=== PATIENT | female | born 1990 | race Two or more races ===

== ENCOUNTER → 2020-12-01 13:16 | Outpatient (REF) | payer MEDICAID, SELFPAY ==
--- NOTE | 2020-12-01 13:00 | ECG_ITS ---
Hook-up date: 2020-12-01 13:29:00 Duration: 24:46:00 Test Indications: CHEST PAIN Medications: [id number] QRS complexes * Ventricular ectopics which represent % of total QRS comp. * Supraventricular ectopics which represent % of total QRS comp. * Paced QRS complexs which represent % of total QRS comp. VENTRICULAR ECTOPY * Isolated * Bigeminal Cycles * Couplets * Runs * Beats in Runs * Beats LONGEST at * BPM at :: -- * Beats FASTEST at * BPM at :: -- SUPRAVENTRICULAR ECTOPY * Isolated * Couplets * Runs * Beats in Runs * Beats LONGEST at * BPM at :: -- * Beats FASTEST at * BPM at :: -- HEART RATES 46 MIN at 05:34:02 2020-12-02 77 AVG 154 MAX at 15:46:18 2020-12-01 LONGEST RR 1.5680 secs at 21:56:02 2020-12-01 S-T LEVELS Channel 1 - 128 mm at 13:29:00 2020-12-01 - 128 mm at 13:29:00 2020-12-01 Channel 2 - 128 mm at 13:29:00 2020-12-01 - 128 mm at 13:29:00 2020-12-01 Channel 3 - 128 mm at 03:24:81 -- - 128 mm at 03:24:81 Basic rhythm Normal sinus rhythm No long pause or profound bradycardia No dangerous dysrhythm periods Patient did not report any symptoms in the diary Referred By: Evy Mast Overread By: LUKAS WILEY MD
== END ==
LOC: HO.CARD 13:16
PROVIDERS: Visit Provider Family Medicine
DX: R07.89 Other chest pain (principal)
CPT/HCPCS: 93225; 93226

== ENCOUNTER 2020-12-21 08:52 | Outpatient (REF) | payer MEDICAID, SELFPAY ==
--- NOTE | ~2020-12-21 | XR_ITS ---
EXAMINATION: XR CHEST CLINICAL INFORMATION: Intermittent chest pain. Occasional dyspnea. COMPARISON: Most recent chest radiograph dated 05/12/2017 TECHNIQUE: 2 views of the chest were obtained. FINDINGS: The lungs are clear. The cardiomediastinal silhouette is normal in size. There is no pleural effusion or pneumothorax. No acute osseous abnormality. XR/XR chest 2V IMPRESSION: No acute cardiopulmonary findings.
== END 2020-12-21 08:53 | disposition home or self-care (01) ==
LOC: HO.XRAY 08:52
PROVIDERS: PCP Family Medicine; Visit Provider Family Medicine
DX: R07.89 Other chest pain (principal)
CPT/HCPCS: 71046

== ENCOUNTER 2021-05-10 14:37 | Outpatient (REF) | payer MEDICAID, SELFPAY ==
--- NOTE | ~2021-05-10 | XR_ITS ---
EXAMINATION: XR CHEST CLINICAL INFORMATION: Chest pain. COMPARISON: Chest radiograph dated 12/21/2020. TECHNIQUE: 2 views of the chest were obtained. FINDINGS: The lungs are clear. The cardiomediastinal silhouette is normal in size. There is no pleural effusion or pneumothorax. No acute osseous abnormality. XR/XR chest 2V IMPRESSION: No acute cardiopulmonary findings.
== END 2021-05-10 14:38 | disposition home or self-care (01) ==
LOC: HO.XRAY 14:37
PROVIDERS: Absent Provider Family Medicine; PCP Family Medicine; Visit Provider Emergency Medicine
DX: R07.9 Chest pain, unspecified (principal)
CPT/HCPCS: 71046

== ENCOUNTER 2021-05-11 12:46 | Emergency (ER) | payer MEDICAID, SELFPAY ==
[2021-05-11 14:01] VITALS: BP 133/85; PULSE 66; RESP 16; TEMP 36.9; O2SAT 100; BMI 51.5
[2021-05-11 14:14] LABS: MANUAL DIFF FLAG NO
[2021-05-11 14:18] LABS: Basophils Percent Auto 0.5 % (0-2); Eosinophils Absolute Auto 0.2 X10*3/uL (0.0-0.4); Eosinophils Percent Auto 2.7 % (0-4); Hematocrit 38.7 % (37.0-47.0); Hemoglobin 12.3 g/dl (12.0-16.0); Imm Gran Abs Auto 0.01 X10*3/uL (0.00-0.03); Imm Gran Pct Auto 0.2 % (0.0-0.4); Lymphocytes Absolute Auto 2.3 X10*3/uL (1.2-4.9); Lymphocytes Percent Auto 38.8 % (20-40); Mean Corpuscular HGB Conc 31.8 g/dl (31.0-35.0); Mean Corpuscular Hemoglobin 28.7 pg (27.0-33.0); Mean Corpuscular Volume 90.4 fL (80.0-98.0); Mean Platelet Volume 13.3 fL (9.4-12.3); Monocytes Absolute Auto 0.4 X10*3/uL (0.1-1.2); Monocytes Percent Auto 6.2 % (2-11); Neutrophils Absolute Auto 3.1 x10*3/uL (2.0-8.3); Neutrophils Percent Auto 51.6 % (45-73); Platelet Count 177 X10*3/uL (160-400); Red Blood Count 4.28 X10*6/uL (4.20-5.50); White Blood Count 5.9 X10*3/uL (4.8-10.8)
[2021-05-11 14:32] LABS: Anion Gap 9 (12-20); Blood Urea Nitrogen 11 mg/dL (9-16); Calcium 9.2 mg/dL (8.4-10.2); Carbon Dioxide 28 mmol/L (22-29); Chloride 104 mmol/L (96-108); Creatinine Clr Calc Pharmacy 125.6; Estimated Glomerular Filt Rate > 60; Glucose Random 89 mg/dL (60-115); Potassium 4.3 mmol/L (3.3-5.1); Sodium 137 mmol/L (135-145)
[2021-05-11 14:59] LABS: INTERNATIONAL NORM RATIO 1.1 (0.9-1.1); Prothrombin Time 12.1 SEC (9.9-13.0)
[2021-05-11 15:01] LABS: D Dimer High Sensitivity 179 NG/ML
[2021-05-11 15:02] LABS: Partial Thromboplastin Time 40.8 SEC (24.1-38.0)
[2021-05-11 21:36] LABS: COVID-19 Test Negative (Negative)
--- NOTE | 2021-05-11 21:39 | PC.NURSE ---
in room for eval. covid neg
--- NOTE | 2021-05-11 21:45 | ED.GENADULT ---
HPI - General Adult General Chief complaint: Abdominal Pain Stated complaint: abdnormal labs Time Seen by Provider: 05/11/21 21:02 Source: patient Mode of arrival: ambulatory History of Present Illness HPI narrative: 31-year-old female without significant past medical history presents with right anterior chest wall discomfort that started on Monday while she was working a and was not needed with any trauma or thighs regimen. In addition, this is not been associated with any dizziness, headache, palpitations, long distance travel, smoking history, or personal/family history of blood clots. Patient also denies any calf swelling, new cough. Related Data Allergies Allergy/AdvReac Type Severity Reaction Status Date / Time No Known Allergies Allergy Verified 05/11/21 14:01 [No Known Allergies*] Review of Systems Review of Systems: Pertinent positives and negatives as stated in HPI and 10 point systems is otherwise negative. [facility] Past Medical History Source: nursing notes reviewed Medical History No known health problems Social History Social History Advance Directives: No Advance Directives Information Provided: No Physical Exam Vital Signs: Vital Signs: Last Vital Signs Temp 98.4 F 05/11/21 14:01 Pulse 66 05/11/21 14:01 Resp 16 05/11/21 14:01 BP 133/85 05/11/21 14:01 Pulse Ox 100 05/11/21 14:01 BMI result Body Mass Index 51.5 VITAL SIGNS: Reviewed. GENERAL: Well developed, well nourished, in no acute distress. HEAD: Normocephalic/atraumatic EYES: PERRLA, EOMI OROPHARYNX: no oral lesions noted, posterior pharynx clear LUNGS: Normal breath sounds, no tachypnea,. SpO2<100>; CHEST WALL: Reach for inducible chest pain on palpation to right anterior chest without erythema/induration. CARDIOVASCULAR: Regular rate and rhythm without noted murmurs, no JVD or lower extremity edema. ABDOMEN: Soft, non-tender, non-distended with bowel sounds. MUSCULOSKELETAL: No tenderness, deformities, or effusions noted on gross inspection. EXTREMITIES: No cyanosis, clubbing or edema. SKIN: Inspection of the skin reveals no rashes NEUROLOGIC: Alert and oriented x 4. Course Course Course Narrative: 31-year-old female with history and clinical presentation consistent with atypical chest pain, PERC negative, and no clinical or historical evidence to suggest pneumonia/pneumothorax. On review of all investigations there are no acute findings. This was fully discussed with the patient as well as the likelihood of possible costochondritis. Patient was discharged home in stable condition with instructions to follow up with the primary care provider. Medical Decision Making Lab Data Result diagrams: 05/11/21 14:09 05/11/21 14:09 Labs: Lab Results 05/11/21 05/11/21 05/11/21 Range/Units 14:09 14:09 14:19 WBC 5.9 (4.8-10.8) X10*3/uL RBC 4.28 (4.20-5.50) X10*6/uL Hgb 12.3 (12.0-16.0) g/dl Hct 38.7 (37.0-47.0) % MCV 90.4 (80.0-98.0) fL MCH 28.7 (27.0-33.0) pg MCHC 31.8 (31.0-35.0) g/dl RDW 13.0 (11.0-16.0) % Plt Count 177 (160-400) X10*3/uL MPV 13.3 H (9.4-12.3) fL Immature Gran % (Auto) 0.2 (0.0-0.4) % Neut % (Auto) 51.6 (45-73) % Lymph % (Auto) 38.8 (20-40) % [place] % (Auto) 6.2 (2-11) % Eos % (Auto) 2.7 (0-4) % Baso % (Auto) 0.5 (0-2) % Lymph # (Auto) 2.3 (1.2-4.9) X10*3/uL [place] # (Auto) 0.4 (0.1-1.2) X10*3/uL Eos # (Auto) 0.2 (0.0-0.4) X10*3/uL Baso # (Auto) 0.0 (0.0-0.2) X10*3/uL Abs Immat Gran (auto) 0.01 (0.00-0.03) X10*3/uL Absolute Neuts (auto) 3.1 (2.0-8.3) x10*3/uL Absolute Nucleated RBC 0.000 (0.0-0.012) X10*3/uL Nucleated RBC % (auto) 0.0 (0.0-0.2) /100WBC PT 12.1 (9.9-13.0) SEC INR 1.1 (0.9-1.1) APTT 40.8 H (24.1-38.0) SEC D-Dimer High Sensitivty 179 NG/ML Sodium 137 (135-145) mmol/L Potassium 4.3 (3.3-5.1) mmol/L Chloride 104 (96-108) mmol/L Carbon Dioxide 28 (22-29) mmol/L Anion Gap 9 L (12-20) BUN 11 (9-16) mg/dL Creatinine 0.77 (0.5-1.4) mg/dL Estim Creat Clear Calc 125.6 Estimated GFR > 60 Random Glucose 89 (60-115) mg/dL Calcium 9.2 (8.4-10.2) mg/dL COVID-19 (BARRY) (Negative) COVID-19 Clin Com 05/11/21 Range/Units 21:12 WBC (4.8-10.8) X10*3/uL RBC (4.20-5.50) X10*6/uL Hgb (12.0-16.0) g/dl Hct (37.0-47.0) % MCV (80.0-98.0) fL MCH (27.0-33.0) pg MCHC (31.0-35.0) g/dl RDW (11.0-16.0) % Plt Count (160-400) X10*3/uL MPV (9.4-12.3) fL Immature Gran % (Auto) (0.0-0.4) % Neut % (Auto) (45-73) % Lymph % (Auto) (20-40) % [place] % (Auto) (2-11) % Eos % (Auto) (0-4) % Baso % (Auto) (0-2) % Lymph # (Auto) (1.2-4.9) X10*3/uL [place] # (Auto) (0.1-1.2) X10*3/uL Eos # (Auto) (0.0-0.4) X10*3/uL Baso # (Auto) (0.0-0.2) X10*3/uL Abs Immat Gran (auto) (0.00-0.03) X10*3/uL Absolute Neuts (auto) (2.0-8.3) x10*3/uL Absolute Nucleated RBC (0.0-0.012) X10*3/uL Nucleated RBC % (auto) (0.0-0.2) /100WBC PT (9.9-13.0) SEC INR (0.9-1.1) APTT (24.1-38.0) SEC D-Dimer High Sensitivty NG/ML Sodium (135-145) mmol/L Potassium (3.3-5.1) mmol/L Chloride (96-108) mmol/L Carbon Dioxide (22-29) mmol/L Anion Gap (12-20) BUN (9-16) mg/dL Creatinine (0.5-1.4) mg/dL Estim Creat Clear Calc Estimated GFR Random Glucose (60-115) mg/dL Calcium (8.4-10.2) mg/dL COVID-19 (BARRY) Negative (Negative) COVID-19 Clin Com See Note Discharge Plan Discharge Clinical Impression: Atypical chest pain, Costochondritis Patient Disposition: Home, Self-Care Instructions: Chest Wall Pain (ED), Costochondritis (ED) Additional Instructions: 1. Tylenol 1000 mg, orally, every 6 hours as needed for pain control. Do not exceed 4000 mg within 24 hours. Ibuprofen 400 mg, orally with milk or food, every 6 hours as needed for pain control. 2. Lidocaine patch, this is available [id number] and may be apply to area of maximal tenderness. 3. Follow-up with your primary care provider in the next 1-2 days for re-evaluation and further outpatient management. Return to the ER for worsening symptoms. Referrals: Evy Mast MD [Primary Care Provider] - 2 days Print Language: Urdu
[2021-05-11 22:00] VITALS: BP 162/83; PULSE 78; RESP 18; TEMP 37.2; O2SAT 98
[2021-05-11] MEDS: Lidocaine 4 % Patch ADH..PATCH 1 PATCH TRANSDERMA (22:23)
[2021-05-11] MEDS: Acetaminophen 325 MG TABLET 975 MG PO (22:24)
[2021-05-11] MEDS: Ibuprofen 400 MG TABLET PO (22:26)
== END 2021-05-11 22:28 | disposition home or self-care (01) ==
PROVIDERS: Emergency Provider Student in an Organized Health Care Education/Training Program; PCP Family Medicine
DX: M94.0 Chondrocostal junction syndrome [Tietze] (principal); R10.9 Unspecified abdominal pain; R07.89 Other chest pain; Z20.822 Contact with and (suspected) exposure to COVID-19; Z79.899 Other long term (current) drug therapy
CPT/HCPCS: 36415; 80048; 85025; 85379; 85610; 85730; 87635; 99283

== ENCOUNTER 2022-07-14 11:27 | Outpatient (REF) | payer MEDICAID, SELFPAY ==
--- NOTE | 2022-07-14 09:00 | EMG_ITS ---
Right tibial and peroneal motor studies were performed. Right superficial peroneal and sural sensory studies were performed. Tibial H-reflex was obtained and paraspinal muscles were tested with a needle. 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 MD LUCIANO Cordero/DORCAS / [phone]
== END 2022-07-14 11:28 | disposition home or self-care (01) ==
LOC: HO.NEURO 11:27
PROVIDERS: PCP Family Medicine; Visit Provider Family Medicine
DX: R20.2 Paresthesia of skin (principal)
CPT/HCPCS: 95886; 95909

== ENCOUNTER 2022-10-17 14:50 | Outpatient (REF) | payer MEDICAID, SELFPAY ==
[2022-10-17 16:06] LABS: MANUAL DIFF FLAG NO
[2022-10-17 16:38] LABS: Basophils Percent Auto 0.6 % (0-2); Eosinophils Absolute Auto 0.2 X10*3/uL (0.0-0.4); Eosinophils Percent Auto 3.7 % (0-4); Hematocrit 43.4 % (37.0-47.0); Hemoglobin 13.8 g/dl (12.0-16.0); Imm Gran Abs Auto 0.02 X10*3/uL (0.00-0.03); Imm Gran Pct Auto 0.3 % (0.0-0.4); Lymphocytes Absolute Auto 1.8 X10*3/uL (1.2-4.9); Lymphocytes Percent Auto 29.2 % (20-40); Mean Corpuscular HGB Conc 31.8 g/dl (31.0-35.0); Mean Corpuscular Hemoglobin 28.5 pg (27.0-33.0); Mean Corpuscular Volume 89.5 fL (80.0-98.0); Mean Platelet Volume 13.7 fL (9.4-12.3); Monocytes Absolute Auto 0.4 X10*3/uL (0.1-1.2); Monocytes Percent Auto 6.3 % (2-11); Neutrophils Absolute Auto 3.7 x10*3/uL (2.0-8.3); Neutrophils Percent Auto 59.9 % (45-73); Platelet Count 177 X10*3/uL (160-400); Red Blood Count 4.85 X10*6/uL (4.20-5.50); Red Cell Distribution Width 12.9 % (11.0-16.0); White Blood Count 6.2 X10*3/uL (4.8-10.8)
[2022-10-17 17:11] LABS: Erythrocyte Sedimentation Rate 10 MM/HR (0-20)
[2022-10-17 17:19] LABS: Alanine Aminotransferase 14 U/L (0-31); Albumin Level 4.2 g/dL (3.5-5.0); Alkaline Phosphatase 62 U/L (39-117); Anion Gap 12 (12-20); Aspartate Amino Transferase 10 U/L (5-31); Bilirubin Direct 0.3 mg/dL (0.0-0.5); Bilirubin Total 1.2 mg/dL (0.0-1.0); Blood Urea Nitrogen 13 mg/dL (9-16); C Reactive Protein 0.57 mg/dL (< or = 0.50); Calcium 9.3 mg/dL (8.4-10.2); Carbon Dioxide 25 mmol/L (22-29); Chloride 105 mmol/L (96-108); Cholesterol 213 mg/dL; Estimated Glomerular Filt Rate > 60; Glucose Random 79 mg/dL (60-115); HDL Cholesterol 46 mg/dL; LDL Cholesterol Calculated 118 mg/dl; Potassium 3.8 mmol/L (3.3-5.1); Sodium 138 mmol/L (135-145); Total Protein 7.6 g/dL (6.5-8.0); Triglycerides 248 mg/dL
[2022-10-17 17:28] LABS: Folate 9.6 ng/mL (> or = 4.0); Vitamin B12 518 pg/mL (200-900)
[2022-10-17 18:47] LABS: Rheumatoid Factor < 13.0 IU/mL (<15.0)
[2022-10-18 05:27] LABS: Estimated Average Glucose 103 mg/dL; Hemoglobin A1c % 5.2 %
[2022-10-18 05:30] LABS: ~HepC Num1 0.13 S/CO (0.00-0.79); ~Hepatitis C Antibody Nonreactive (Nonreactive)
[2022-10-18 05:38] LABS: HIV AB/AG Nonreactive (Nonreactive); HIV Num 1 0.05 S/CO (0.00-0.99)
[2022-10-19 14:48] LABS: Cyclic Citrullinated Peptide <16 UNITS
[2022-10-19 18:04] LABS: Homocysteine 7.2 umol/L (<10.4)
[2022-10-21 13:47] LABS: Anti Nuclear Antibody Screen NEGATIVE (NEGATIVE)
[2022-10-22 09:48] LABS: Methylmalonic Acid 85 nmol/L (87-318)
== END 2022-10-17 14:51 | disposition home or self-care (01) ==
LOC: HO.HHCL 14:50
PROVIDERS: Visit Provider Internal Medicine
DX: Z11.4 Encounter for screening for human immunodeficiency virus [HIV] (principal); R20.0 Anesthesia of skin; R20.2 Paresthesia of skin; R53.82 Chronic fatigue, unspecified; M25.50 Pain in unspecified joint
CPT/HCPCS: 36415; 80048; 80061; 80076; 82607; 82746; 83036; 83090; 83921; 84443; 85025; 85652; 86038; 86140; 86200; 86431; 86803; 87389

== ENCOUNTER 2022-10-17 15:07 | Outpatient (REF) | payer MEDICAID, SELFPAY ==
--- NOTE | ~2022-10-17 | XR_ITS ---
EXAMINATION: XR LUMBOSACRAL SPINE CLINICAL INFORMATION: Pain COMPARISON: None available. TECHNIQUE: 5 views lumbosacral spine nonweightbearing FINDINGS: Diffuse endplate spurring. Moderate degenerative disc space narrowing L4-L5. Posterior elements appear intact. No fracture or focal bony lesion. Sacral joints appear intact. XR/XR lumbar spine 2-3V IMPRESSION: Degenerative disc disease most notable at L4-L5.
== END 2022-10-17 15:08 | disposition home or self-care (01) ==
LOC: HO.HHCX 15:07
PROVIDERS: Visit Provider Internal Medicine
DX: M54.50 Low back pain, unspecified (principal)
CPT/HCPCS: 72100

== ENCOUNTER 2022-11-18 10:25 | Outpatient (REF) | payer MEDICAID, SELFPAY | END 2022-11-18 10:26 | disposition home or self-care (01) | LOC: HO.HHCL 10:25 | PROVIDERS: Visit Provider Internal Medicine | DX: R10.13 Epigastric pain (principal) | CPT/HCPCS: 87338 ==

== ENCOUNTER 2022-12-15 08:16 | Outpatient (REF) | payer MEDICAID, SELFPAY ==
--- NOTE | ~2022-12-15 | XR_ITS ---
EXAMINATION: XR WRIST/HAND, LEFT CLINICAL INFORMATION: Radial styloid tenosynovitis. COMPARISON: None available. TECHNIQUE: PA, lateral, and oblique views of the left wrist and hand FINDINGS: LEFT WRIST/HAND: The bones and soft tissues are normal. No fracture. Alignment is anatomic. Joint spaces are maintained. No erosions or soft tissue calcifications. XR/XR hand wrist LT IMPRESSION: Normal left hand and wrist.
== END 2022-12-15 08:17 | disposition home or self-care (01) ==
LOC: HO.HOSX 08:16
PROVIDERS: PCP Family Medicine; Visit Provider Physical Medicine & Rehabilitation
DX: M65.4 Radial styloid tenosynovitis [de Quervain] (principal); R20.0 Anesthesia of skin; M53.3 Sacrococcygeal disorders, not elsewhere classified
CPT/HCPCS: 73110; 73130; 99202

== ENCOUNTER 2022-12-15 08:16 | Outpatient (AMB) | payer MEDICAID, SELFPAY ==
--- NOTE | 2022-12-15 08:28 | A.OFFVIS_ITS ---
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 She reports weakness, numbness and tingling in her legs and her hands. She reports this started 10 months ago when she had her baby. She has tried taking tylenol and motrin but it hasn't helped, she has also tried Gabapentin but she reports it was too strong for her. Allergies No Known Allergies [No Known Allergies*] Allergy (Verified 12/15/22 08:34) Medication List - Last Reconciled 12/15/22 by Louisa Chavez RN No Known Home Meds HPI HPI Comments History of Present Illness Details Left thumb pain - 10 months ago, during . She does admit to constant numbness on both hands, which started during also. Dropping things. No splint or brace yet. Low back pain, during also, getting worse. Across lower back but left worse than right. Travels to left foot. Reports numbness on both legs/feet, on/off. Occasional neck pain only. Had evaluation for back pain PT, to start in January. [facility] Medical History No known health problems Review of Systems Const All systems reviewed & are unremarkable except as noted in HPI and below Physical Exam Constitutional: Patient appears to be in no acute distress, well nourished and well developed. MSK: Inspection reveals appropriate head and neck positioning. No pain with palpation over the neck musculature. Cervical ROM was full. Spurling's sign negative. No intrinsic hand weakness noted. No atrophy noted. Carley test positive on left. Carpal compression test negative. Tinel sign negative. Mildly tender on bilateral SI joints. No tenderness on spinous processes, facets are paraspinals. Strength is 5/5 in all muscle groups tested. No increased tone noted. Neurological: Neurologic examination of the upper and lower extremities was nonfocal with intact sensation, muscle stretch reflexes and without focal motor deficits . Segundo?s negative bilaterally. Babinski was down going bilaterally. Clonus was negative. No footdrop seen. Gait is non-antalgic without loss of balance. Results Reviewed Results Reviewed: I independently reviewed the results of the following: EMG right lower extremity done by Dr. Geovanny-showed small appy should of right superficial peroneal nerve. Peroneal motor nerve looked within normal. Lumbar x-ray done October showed decreased disc space at L4-5. Assessment & Plan Assessment & Plan (1) De Quervain's disease (tenosynovitis): Code(s): M65.4 - Radial styloid tenosynovitis [de Quervain] Plan: Suspect she has left de Quervain tenosynovitis. We will provide thumb spica splint to be worn during the day. Instructions given. We will get left hand/wrist x-ray today to rule out any arthritic changes. (2) Bilateral hand numbness: Code(s): R20.0 - Anesthesia of skin Plan: It is common to get carpal tunnel syndrome during . We will schedule her for EMG. (3) Sacroiliac joint dysfunction of both sides: Code(s): M53.3 - Sacrococcygeal disorders, not elsewhere classified Plan: Also, to get SI joint dysfunction during . She is already scheduled for physical therapy and encouraged her to continue with that. I do not think we need to repeat EMG for lower extremities at this time. However if she continues to complain of feet numbness, we will schedule it under me at some point. Plan Assessment and plan discussed with patient, and patient was agreeable. All questions were answered thoroughly. I will see her during EMG for upper extremities. Emely Jensen MD, [employer] Board Certified, [place] [employer] and [employer] (ABPMR) Board Certified, [place] [employer] Electro[employer] (ABEM) Orders: Orders NE electromyogram (EMG) Today R20.0 - Anesthesia of skin XR hand wrist LT Today M65.4 - Radial styloid tenosynovitis [de Quervain] NE nerve conduction velocity Today R20.0 - Anesthesia of skin Coding Level of Care Code New Pt Level 4 (85216) Diagnoses De Quervain's disease (tenosynovitis) M65.4 Bilateral hand numbness R20.0 Sacroiliac joint dysfunction of both sides M53.3
== END 2022-12-15 09:21 | disposition home or self-care (01) ==
PROVIDERS: PCP Family Medicine; Visit Provider Physical Medicine & Rehabilitation
DX: M65.4 Radial styloid tenosynovitis [de Quervain] (principal); R20.0 Anesthesia of skin; M53.3 Sacrococcygeal disorders, not elsewhere classified
CPT/HCPCS: 99204

== ENCOUNTER 2022-12-18 12:36 | Emergency (ER) | payer MEDICAID, SELFPAY ==
--- NOTE | ~2022-12-18 | XR_ITS ---
EXAMINATION: XR LUMBOSACRAL SPINE CLINICAL INFORMATION: Lower back pain COMPARISON: 10/17/2022 TECHNIQUE: Three views of the lumbosacral spine. FINDINGS: The alignment is maintained. Vertebral body height is maintained. Mild to moderate disc narrowing and osteophyte formation is present at L4-L5. No visible spondylolysis or spondylolisthesis. Small osteophytes are also present at T12-L1. XR/XR lumbar spine 2-3V IMPRESSION: Mild to moderate disc narrowing at L4-L5 with osteophyte formation. Findings similar to prior.
[2022-12-18 13:40] VITALS: BP 141/98; PULSE 72; RESP 16; TEMP 36.8; O2SAT 98; BMI 46.2
--- NOTE | 2022-12-18 13:50 | ED_ITS ---
HPI - General Adult General Chief complaint: Back Pain/Injury Stated complaint: lower back pain Time Seen by Provider: 12/18/22 14:15 Source: patient Mode of arrival: ambulatory Limitations: no limitations History of Present Illness HPI narrative: patient is a 32-year-old female presents emergency department for evaluation of acute on chronic lumbar spine pain. She states that she often has severe pain and spasming of the lower back. Today she was experiencing spasming and she is feeling the pain radiating into the lower legs. She states that this caused her to drop to her knees and hands to the floor. Did not fall landing on her spine. There is no head strike or loss of consciousness. She is endorsing increasing pain to the lumbar spine throughout today. Denies fevers, chills, burning with micturition, urinary frequency/urgency/hesitancy, bladder or bowel dysfunction, numbness or tingling of the perineum or bilateral legs. Denies any recent surgical procedures, any known immune compromising conditions, personal history of cancer, or IV drug usage. Related Data Previous Rx's Medication Instructions Recorded cyclobenzaprine 10 mg tablet 10 mg PO BEDTIME PRN muscle spasm 12/18/22 #10 tabs lidocaine 5 % topical patch 1 patch topical DAILY #15 ea 12/18/22 (Lidoderm) Allergies Allergy/AdvReac Type Severity Reaction Status Date / Time No Known Allergies Allergy Verified 12/15/22 08:34 [No Known Allergies*] Review of Systems Review of Systems: Constitutional: No weight loss, fever, chills, weakness or fatigue. HEENT: No visual loss, blurred vision, double vision. No hearing loss, sneezing, congestion, runny nose or sore throat. Skin: No rash or itching. Cardiovascular: No chest pain, chest pressure or chest discomfort. No palpitations or pedal edema. Respiratory: No shortness of breath, cough or sputum production. Gastrointestinal: No anorexia, nausea, vomiting or diarrhea. No abdominal pain or blood in stool. Genitourinary: No burning micturition. No urinary frequency or incontinence. Neurologic: No headache, dizziness, syncope, unilateral weakness, ataxia, numbness or tingling in the extremities. No change in bowel or bladder control. Musculoskeletal: + Back pain as noted in HPI. No joint pain or stiffness. Hematologic: No bleeding or bruising. Lymphatics: No enlarged lymph nodes. Psychiatric:No depression or anxiety. Endocrine: No reports of sweating. No cold or heat intolerance. No polyuria or polydipsia. Yes all other systems are reviewed and are negative [facility] Past Medical History Attestation statement: The following information was validated with the patient. Source: old records reviewed Medical History No known health problems Social History Social History Advance Directives: No Advance Directives Information Provided: Yes Physical Exam ED Vital Signs: Vital Signs - 24 hr 12/18/22 13:40 12/18/22 14:55 Temperature 98.2 F 98.2 F Pulse Rate 72 72 Respiratory Rate 16 Blood Pressure 141/98 H 132/88 Pulse Oximetry 98 97 Oxygen Delivery Method Room Air Room Air BMI result Body Mass Index 46.2 Appearance: Alert.?Oriented to person, place and time. No acute distress.?Normal affect. Eyes: Pupils equal, round and reactive to light.? ENT: Pharynx normal.?? Neck: Normal inspection.? Neck supple.?? CVS: Heart sounds normal. Normal heart rate and rhythm.? Pulses normal; bilateral radial pulses 2+, bilateral posterior tibial/dorsalis pedis pulses 2+.? Respiratory: No respiratory distress.? Lung sounds clear to auscultation bilaterally?? Abdomen: Soft and non-tender. Normoactive bowel sounds. Skin: Skin warm and dry.? Normal skin color.? ?? Extremities: No lower extremity edema.? No calf ttp? Back: + mild paraspinal muscular tenderness from lumbar region to coccyx , bilateral SI joint tenderness upon palpation. No CVA tenderness. No midline spinal tenderness, step-off's, or deformity. Full ROM intact in bilateral lower extremities. Straight leg test positiveon right; Straight leg test Positive on left. No rashes, lesions, areas of induration or fluctuance, or signs of infection noted., Neuro: Moves all extremities spontaneously. 5/5 strength in hip extension/flexion, abduction, adduction. Sensation to light touch intact bilaterally. Patellar and Achilles reflex 2+ bilaterally. No ataxia, gait normal and steady.. No focal neuro deficits. Course Course Course Narrative: RME: 32 yold female presents to the ED For low back pain after falling unto back. patient state chronic back pain exacerbation. patient denies any symptoms. Xrays ordered Medications Administered Discontinued Medications Generic Name Dose Route Start Last Admin Trade Name Keri PRN Reason Stop Dose Admin Cyclobenzaprine HCl 10 mg 12/18/22 14:54 12/18/22 15:13 Cyclobenzaprine Hcl 10 Mg Tablet PO 12/18/22 14:55 10 mg ONCE ONE Administration Lidocaine 1 patch 12/18/22 14:54 12/18/22 15:15 Lidocaine 4 % Patch Adh..Patch TRANSDERMA 12/18/22 14:55 1 patch ONCE ONE Administration Protocol Medical Decision Making Medical Decision Making [facility] Narrative: Patient is a 32-year-old female in with history of chronic back pain, SI joint dysfunction presenting for acute on chronic pain. physical examination revealing paraspinal muscle tenderness and tenderness over the bilateral SI joint. Discussed with patient cannot completely exclude herniated disc. On n eurological exam there are no deficits. XR imaging reveals mild to moderate disc narrowing at L4-L5 consistent with previous examinations. Not consistent with spinal fracture, spinal infection, epidural abscess, AAA, or dissection. No high risk past medical history including incontinence, fever, immunosuppression, recent surgery or lumbar puncture, coagulopathy, significant trauma, recent unintentional weight loss, pulsatile mass, history of cancer, history of TB, history of IV drug use that would warrant MRI or CT. Not consistent with ectopic , pyelonephritis, urinary tract infection, renal calculi, pelvic infection, appendicitis, diverticulitis. On exam no concern for cauda equina syndrome. No Additional imaging is currently indicated at this time. Plan for discharge home with cyclobenzaprine and Lidoderm patch, and follow-up with primary care provider, and patient agreed with plan. Differential Diagnosis Differential Diagnoses: The differential diagnosis associated with the presentation includes ( Most likely lumbar radiculopathy, verses lumbar fracture/traumatic subluxation. Unlikely pyelonephritis, hydronephrosis, ureteral calculi, urinary tract infection, diverticulitis, appendicitis) Lab Data [facility] Lab Attestation statement: I reviewed the patient's lab results. urinalysis is without signs of infection, hematuria present she is currently menstruating. Labs: Lab Results 12/18/22 Range/Units 14:31 Urine Color Yellow Urine Appearance Clear Urine pH 6.5 (5.0-9.0) Ur Specific [place] 1.010 (1.005-1.025) Urine Protein Negative (Neg-Trace) mg/dL Urine Glucose (UA) Negative (Negative) mg/dL Urine Ketones Negative (Negative) mg/dL Urine Blood Large (3+) H (Negative) Urine Nitrite Negative (Negative) Ur Leukocyte Esterase Negative (Negative) Urine RBC >20 H (0-2) /HPF Urine WBC 0-5 (0-5) /HPF Ur Squamous Epith Cells 0-2 (0-2) /HPF Urine Bacteria None Seen (None Seen) Hyaline Casts 0-2 (0-2) /LPF Urine Test NEGATIVE (NEGATIVE) Independent Interpretation I performed an independent interpretation of an: Plain X-Ray ( I have personally interpreted XR imaging of the lumbar spine And agree with radiologist impression.) Radiology Impression Discussion of test interpretation with radiology: I have reviewed the radiologist's reading. Radiologist Impression: XR/XR lumbar spine 2-3V IMPRESSION: Mild to moderate disc narrowing at L4-L5 with osteophyte formation. Findings similar to prior. External Record Review External record reviewed: Outpatient record and Prior outpatient labs Tests considered The following testing was considered but not selected: see narrative above for further detail Prescription Management I considered prescription management with: Pain Medication Discharge Plan Discharge Clinical Impression: Sacroiliac joint dysfunction of both sides, Lumbar radiculopathy Patient Disposition: Home, Self-Care Instructions: Lumbar Radiculopathy (ED), Sacroiliitis (ED), Lower Back Exercises (ED) Prescriptions: New cyclobenzaprine 10 mg tablet 10 mg PO BEDTIME PRN (Reason: muscle spasm) Qty: 10 0RF lidocaine [Lidoderm] 5 % adhesive patch,medicated 1 patch topical DAILY Qty: 15 0RF Rx Instructions: leave on most painful area for up to 12 hrs Referrals: Sammie Bazan MD [Primary Care Provider] - Discharge Date/Time: 12/18/22 17:50
--- OUTSIDE RECORDS SUMMARY | 2022-12-18 14:24 | XMS_ITS | Continuity of Care Document ---
Author Name Unknown Organization [facility] Address [address] [place] [address], [address] [place] [address]- Care Team Providers Care Electronic Warfare Technical Name Role Phone Not on Staff, PCP Primary Care Physician Unavail able Encounter [facility] [place] Date(s): 08/10/21 - 08/17/21 [facility] [address], 4th [place] [address]- Attending Physician: Yareli Beatty MD Referring Physician: Gabi Garcia CNM Allergies, Adverse Reactions, Alerts No Known Medication Allergies Medications Multivitamins By Mouth, Daily, 0 Refills, Maintenance, 07/13/21 10:26:00 EDT, Partial fill upon patient request if the prescription is for a schedule II opioid drug. Start Date: 07/13/21 Status: Ordered Unisom 25 mg oral tablet 1 tablet = 25 mg, By Mouth, Daily at bedtime, # 30 tablet, 1 Refills, Maintenance, 08/10/21 10:21:00 EDT, [id number], Partial fill upon patient request if the prescription is for a schedule II opioid drug., 174, cm, 08/10/21 9:37:00 EDT, Rosalina... Start Date: 08/10/21 Status: Ordered Vit D gummies OTC Vit D gummies OTC, Refills 0, Maintenance, 07/13/21 10:27:00 EDT, Supply Start Date: 07/13/21 Status: Ordered Vitamin B6 25 mg oral tablet 1 tablet = 25 mg, By Mouth, 3 times a day, # 100 tablet, 0 Refills, Maintenance, 07/13/21 11:12:00 EDT, [id number], Partial fill upon patient request if the prescription is for a schedule II opioid drug. Start Date: 07/13/21 Status: Ordered Problem List Condition Effective Dates Status Health Status Inform ant BMI 38.7, pre- - Obese(Confirmed) Active History of delivery , currently (Confirmed) Active History of varicella as a child(Confirmed) Active History of depression(Confirmed) 1 Active History of macrosomia in inf ant in prior , currently (Confirmed) Active +COVID-19 during (C onfirmed) 2 Active Obese class II(Confirmed) Active 1Reports some situational depression in past and some mild ppd after her first son. It was mild and resolved on it's own. 2Symptoms began 08/19/21. Social History Social History Type Response Smoking Status Never (less than 100 in lifetime) entered on: 07/13/21 Sex
--- OUTSIDE RECORDS SUMMARY | 2022-12-18 14:24 | XMS_ITS | Continuity of Care Document ---
Author Name Unknown Organization [facility] Address [address], [address] [place] [address]- Care Team Providers Care Rn Integrity Name Role Phone Not on Staff, PCP Primary Care Physician Unavail able Encounter [facility] [place] Date(s): 01/20/22 - 01/27/22 [facility] [address] [facility] [facility] [address], 4th [place] [address]- Attending Physician: Yareli Beatty MD Referring Physician: Ciro Puckett CNM Allergies, Adverse Reactions, Alerts No Known Medication Allergies Immunizations Given and Recorded Vaccine Date Status Refusal Reason tetanus/diphtheria/pertussis, acel(Tdap) 12/01/21 Given Medications Unisom 25 mg oral tablet 1 tablet = 25 mg, By Mouth, Daily at bedtime, # 30 tablet, 0 Refills, Maintenance, 10/27/21 17:21:00 EDT, [facility]/pharmacy #[id number], Partial fill upon patient request if the prescription is for a schedule II opioid drug., 174, cm, 10/05/21 14:32:00 EDT, Rafael... Start Date: 10/27/21 Status: Ordered Problem List Condition Confirmation Course Effective Dates Status H ealth Status Informant Anemia Confirmed Active Gestational thrombocytopenia Confirmed Active BMI 38.7, pre- - Obese Confirmed Active History of delivery, currently Confirmed Active History of varicella as a child Confirmed Active History of depression 1 Confirmed Active History of macrosomia in infant in prior , currently Confirmed Active +COVID-19 during 2 Confirmed Active Obese class II Confirmed Active 1Reports some situational depression in past and some mild ppd after her first son. It was mild and resolved on it's own. 2Symptoms began 08/19/21. Social History Social History Type Response Smoking Status Never (less than 100 in lifetime) entered on: 07/13/21 Sex Patient Care team information Personnel Name: Not on Staff, PCP
--- OUTSIDE RECORDS SUMMARY | 2022-12-18 14:24 | XMS_ITS | Continuity of Care Document ---
Author Name Unknown Organization [facility] Address Unknown Care Team Providers Care Basic Sciences Professor Name Role Phone Not on Staff, PCP Primary Care Physician Unavail able Encounter [facility] [place] Date(s): 06/23/21 - 09/09/21 [facility] Attending Physician: Not on Staff, Attending MD Referring Physician: Chiquita Lei CNM Allergies, Adverse Reactions, Alerts No Known [...]
--- OUTSIDE RECORDS SUMMARY | 2022-12-18 14:24 | XMS_ITS | Continuity of Care Document ---
Author Name Unknown Organization [facility] Address [address] [place] [address]- Care Team Providers Care Steward/Stewardess Deck Name Role Phone Not on Staff, PCP Primary Care Physician Unavail able Encounter [facility] [place] Date(s): 02/07/22 - 03/20/[address] [address] Attending Physician: Venkatesh Candelaria CNM Admitting Physician: Venkatesh Candelaria CNM Referring Physician: Venkatesh Candelaria CNM Allergies, Adverse Reactions, Alerts No Known Medication Allergies Immunizations Given and Recorded Vaccine Date Status Refusal Reason tetanus/diphtheria/pertussis, acel(Tdap) 12/01/21 Given Problem List Condition Confirmation Course Effective Dates Status H ealth Status Informant Anemia Confirmed Active Gestational thrombocytopenia Confirmed Active History of varicella as a child Confirmed Active History of depression 1 Confirmed Active Obese class II Confirmed Active 1Reports some situational depression in past and some mild ppd after her first son. It was mild and resolved on it's own. Social History Social History Type Response Smoking Status Never (less than 100 in lifetime) entered on: 07/13/21 Sex Patient Care team information Care Team Personnel Name: Corina Florez RN Position: S RN Member Role: Primary Care Nurse Name: Not on Staff, PCP Position: S Physician (General Medicine) Member Role: PCP Care Team Related Persons Name: DARREL DUNNE Address: [id number] Address: home [address] [place] [address] [place] Name: ESVIN MANSFIELD Address: [address] [place] [address]
--- OUTSIDE RECORDS SUMMARY | 2022-12-18 14:24 | XMS_ITS | Continuity of Care Document ---
Author Name Unknown Organization [facility] Address [address] [place] [address]- Care Team Providers Care Machine Captain Name Role Phone Not on Staff, PCP Primary Care Physician Unavail able [place] [facility] [place] Date(s): 08/17/21 - 09/16/21 [facility] [address] [place] [address]- Allergies, Adverse Reactions, Alerts No Known Medication [...]
--- OUTSIDE RECORDS SUMMARY | 2022-12-18 14:24 | XMS_ITS | Continuity of Care Document ---
Author Name Unknown Organization [facility] Address [address], 4t [place] [address]- Care Team Providers Care Glass Installer Technician Name Role Phone Not on Staff, PCP Primary Care Physician Unavail able Encounter [facility] Date(s): 02/02/22 - [facility] [address], 4th [place] [address]- Allergies, Adverse Reactions, Alerts No Known Medication [...] Team Related Persons Name: DARREL DUNNE Address: [id number] Address: home [address] [place], [place] Name: ESVIN MANSFIELD Address: home [address] [facility] [place], [place]
--- OUTSIDE RECORDS SUMMARY | 2022-12-18 14:24 | XMS_ITS | Continuity of Care Document ---
Author Name Unknown Organization [facility] ter Address [address] [place] [address]- Care Team Providers Care Fitting Room Attendant Name Role Phone Not on Staff, PCP Primary Care Physician Unavail able Encounter [facility] [place] Date(s): 12/17/21 - 12/17/[address] [address]- Discharge Disposition: A-D/C Home Attending Physician: Carter Cook MD Admitting Physician: Carter Cook MD Referring Physician: Carter Cook MD Allergies, Adverse Reactions, Alerts No Known Medication Allergies Immunizations Given and Recorded Vaccine Date Status Refusal Reason tetanus/diphtheria/pertussis, acel(Tdap) 12/01/21 Given Medications ferrous sulfate 325 mg oral tablet See Instructions, 1 tablet By Mouth every other day. may take with food to minimize abdominal discomfort, # 30 tablet, 6 Refills, Maintenance, 12/09/21 9:59:00 EDT, [facility]/pharmacy #[id number], Partial fill upon patient request if the prescription is for a s... Start Date: 12/09/21 Status: Ordered Multivitamins By Mouth, Daily, 0 Refills, Maintenance, 07/13/21 10:26:00 EDT, Partial fill upon patient request if the prescription is for a schedule II opioid drug. Start Date: 07/13/21 Status: Ordered Unisom 25 mg oral tablet 1 tablet = 25 mg, By Mouth, Daily at bedtime, # 30 tablet, 0 Refills, Maintenance, 10/27/21 17:21:00 EDT, [id number], Partial fill upon patient request if the prescription is for a schedule II opioid drug., 174, cm, 10/05/21 14:32:00 EDT, Rafael... Start Date: 10/27/21 Status: Ordered Problem List Condition Effective Dates Status Health Status Inform ant Anemia(Confirmed) Active Gestational thrombocytopenia(Confirmed) Active BMI 38.7, pre- - Obese(Confirmed) Active History [...] resolved on it's own. 2Symptoms began 08/19/21. Vital Signs Most recent to oldest [Reference Range]: 1 2 Oxygen Saturation [94-100 %] 100 % (12/17/21 5:37 PM) 100 % (12/17/21 2:18 PM) Pulse Rate [55-90 bpm] 77 bpm (12/17/21 2:18 PM) Blood Pressure [90-138/55-84 mm Hg] 112/ 71mm Hg (12/17/21 5:37 PM) 102/60mm Hg (12/17/21 2:18 PM) Respiratory Rate [16-30 br/min] 18 br/mi n (12/17/21 5:36 PM) 16 br/min (12/17/21 2:18 PM) Temperature [96.8-100.4 DegF] 98.6 DegF (12/17/21 2:18 PM) Mode of Delivery (Oxygen) Room air (12/17/21 2:18 PM) Blood pressure sites Arm, left (12/17/21 5:36 PM) Arm, right (12/17/21 2:18 PM) Temperature Route Oral (12/17/21 2:18 PM) Social History Social History Type Response Smoking Status Never (less than 100 in lifetime) entered on: 07/13/21 Sex Care Team Personnel Name: Not on Staff, PCP
--- OUTSIDE RECORDS SUMMARY | 2022-12-18 14:24 | XMS_ITS | Continuity of Care Document ---
Author Name Unknown Organization [facility] [employer] Address [address], [address] [place] [address]- Care Team Providers Care Drivability Technician Name Role Phone Not on Staff, PCP Primary Care Physician Unavail able [place] [facility] [place] Date(s): 01/20/22 - 02/19/22 [facility] [address], [address] [place], [place] [address] Attending Physician: Blair Devlin Admitting Physician: Blair Devlin Referring Physician: AdmtrBlair Allergies, Adverse Reactions, Alerts No Known Medication Allergies Immunizations Given and Recorded Vaccine Date Status Refusal Reason tetanus/diphtheria/pertussis, acel(Tdap) 12/01/21 Given Medications acetaminophen 325 mg oral tablet 650 mg, By Mouth, Every 4 hours, (1-3), may give 325mg per patient preference and re-dose with 325mg within 4 hours if needed. Patient should only receive a total of 650mg of Acetaminophen every 4 hours., # 90 tablet, Refills 0, Tot. Refills 0, Main... Start Date: 02/19/22 Status: Ordered docusate sodium 100 mg oral capsule 100 mg, 1, capsule, By Mouth, 2 times a day, # 60 capsule, Refills 0, Tot. Refills 0, Maintenance, 02/19/22 8:13:00 EST, Route to Pharmacy Electronically, [facility]/pharmacy #[id number], Partial fill upon patient request if the prescription is for a schedule II o... Start Date: 02/19/22 Status: Ordered ibuprofen 800 mg oral tablet 800 mg, 1, tablet, By Mouth, Every 8 hours, (4-6), may give 400mg per patient preference and re-dose with 400mg within 8 hours if needed. Patient should only receive a total of 800mg of Ibuprofen every 8 hours., # 90 tablet, Refills 0, Tot. Refills... Start Date: 02/19/22 Status: Ordered oxyCODONE 5 mg oral tablet 5 mg, 1, tablet, By Mouth, Every 3 hours, PRN, (7-10), # 10 tablet, Refills 0, Tot. Refills 0, Maintenance, Pain , Severe, 02/19/22 8:13:00 EST, Route to Pharmacy Electronically, [facility]/pharmacy #[id number], Partial fill upon patient request if the prescriptio... Start Date: 02/19/22 Status: Ordered Problem List Condition Confirmation Course [...] Confirmed Active Obese class II Confirmed Active contractions Confirmed Active 1Reports some situational depression in past and some mild ppd after her first son. It was mild and resolved on it's own. 2Symptoms began 08/19/21. Social History Social History Type Response Smoking Status Never (less than 100 in lifetime) entered on: 07/13/21 Sex Patient Care team information Care Team Personnel Name: Corina Florez RN Position: [facility] RN Member Role: Primary Care Nurse Name: Not on Staff, PCP Position: [facility] Physician (General Medicine) Member Role: PCP Care Team Related Persons Name: DONAL ESVIN Address: [address] [place] [address] Name: NELSY BREWSTER GIRL Address: [address] Address: [address] [place] [address]
--- OUTSIDE RECORDS SUMMARY | 2022-12-18 14:25 | XMS_ITS | Continuity of Care Document ---
Author Name Unknown Organization [facility] Address [address] [address]- Care Team Providers Care Tooler Name Role Phone Not on Staff, PCP Primary Care Physician Unavail able Encounter [facility] [place] Date(s): 02/22/22 - 04/24/22 [facility] [address] [place] [address]- Attending Physician: Not on Staff, Attending MD Referring Physician: Gely Valladares CNM Allergies, Adverse Reactions, Alerts No Known [...] Nurse Name: Not on Staff, PCP Position: [facility] Physician (General Medicine) Member Role: PCP Care Team Related Persons Name: DARREL DUNNE Address: [address] Address: [address], [place] Name: ESVIN MANSFIELD Address: home [address] [place], [place]
--- OUTSIDE RECORDS SUMMARY | 2022-12-18 14:25 | XMS_ITS | Continuity of Care Document ---
Author Name Unknown Organization [facility] Address [address] [address]- Care Team Providers Care Industrial/Organizational Psychologist Name Role Phone Not on Staff, PCP Primary Care Physician Unavail able Encounter [facility] Date(s): 11/18/21 - 12/18/21 [facility] [address] [place] [address]- Allergies, Adverse Reactions, Alerts No Known Medication Allergies Immunizations Given and Recorded Vaccine Date Status Refusal Reason tetanus/diphtheria/pertussis, acel(Tdap) 12/01/21 Given Medications ferrous sulfate 325 mg oral tablet See Instructions, 1 tablet By Mouth every other day. may take with food to minimize abdominal discomfort, # 30 tablet, 6 Refills, Maintenance, 12/09/21 9:59:00 EDT, [facility]/pharmacy #[id number], Partial fill upon [...] tablet, 0 Refills, Maintenance, 10/27/21 17:21:00 EDT, [facility]/pharmacy #[id number], Partial fill upon [...]
--- OUTSIDE RECORDS SUMMARY | 2022-12-18 14:25 | XMS_ITS | Continuity of Care Document ---
Author Name Unknown Organization [facility] Address [address] [address]- Care Team Providers Care Wildlife Forensic Geneticist Name Role Phone Not on Staff, PCP Primary Care Physician Unavail able Encounter [facility] Date(s): 12/17/21 - 01/16/22 [facility] [address] [place] [address]- Allergies, Adverse Reactions, Alerts No Known Medication Allergies Immunizations Given and Recorded Vaccine Date Status Refusal Reason tetanus/diphtheria/pertussis, acel(Tdap) 12/01/21 Given Medications Diflucan 150 mg oral tablet 1 tablet = 150 mg, By Mouth, Once, # 1 tablet, 0 Refills, Soft Stop, 12/21/21 19:49:00 EDT, [id number], Partial fill upon patient request if the prescription is for a schedule II opioid drug., 174, cm, 12/21/21 10:42:00 EDT, Height, 11... Start Date: 12/21/21 Status: Ordered ferrous sulfate 325 mg oral tablet See Instructions, 1 tablet By Mouth every other day. may take with food to minimize abdominal discomfort, # 30 tablet, 6 Refills, Maintenance, 12/09/21 9:59:00 EDT, [id number], Partial fill upon patient request if the prescription is for a s... Start Date: 12/09/21 Status: Ordered ondansetron 4 mg oral tablet 1 tablet = 4 mg, By Mouth, Every 8 hours, # 12 tablet, 0 Refills, Maintenance, 12/29/21 15:05:00 EDT, Tablet, [id number], Partial fill upon patient request if the prescription is for a schedule II opioid drug., 174, cm, 12/23/21 9:31:00 EDT, H... Start Date: 12/29/21 Status: Ordered Multivitamins By Mouth, Daily, 0 Refills, Maintenance, 07/13/21 10:26:00 EDT, Partial fill upon patient request if the prescription is for a schedule II opioid drug. Start Date: 07/13/21 Status: Ordered Unisom 25 mg oral tablet 1 tablet = 25 mg, By Mouth, Daily at bedtime, # 30 tablet, 0 Refills, Maintenance, 10/27/21 17:21:00 EDT, [facility]/pharmacy #[id number], Partial fill upon patient [...] 1 Confirmed Active History of macrosomia in in prior , currently Confirmed Active +COVID-19 [...]
--- OUTSIDE RECORDS SUMMARY | 2022-12-18 14:25 | XMS_ITS | Continuity of Care Document ---
Author Name Unknown Organization [facility] ter Address [address] [place] [address]- Care Team Providers Care Power Systems Engineer Name Role Phone Not on Staff, PCP Primary Care Physician Unavail able Encounter [facility] Date(s): 07/09/21 - 07/09/[address] [id number] Discharge Disposition: A-D/C Home Attending Physician: Sandra Barrett MD Admitting Physician: Sandra Barrett MD Referring Physician: Sandra Barrett MD Allergies, Adverse Reactions, Alerts No Known Medication Allergies Procedures Procedure Date Related Diagnosis Body Site Status delivery Complet ed Vital Signs Most recent to oldest [Reference Range]: 1 Weight 118.9 kg (07/09/21 9:24 AM) Oxygen Saturation [94-100 %] 100 % (07/09/21 9:24 AM) Pulse Rate [55-90 bpm] 83 bpm (07/09/21 9:24 AM) Blood Pressure [90-138/55-84 mm Hg] 119/ 72mm Hg (07/09/21 9:24 AM) Respiratory Rate [16-30 br/min] 18 br/mi n (07/09/21 9:24 AM) Temperature [96.8-100.4 DegF] 98.2 DegF (07/09/21 9:24 AM) Blood pressure sites Arm, right (07/09/21 9:24 AM) Temperature Route Oral (07/09/21 9:24 AM) Weight Obtained Via Standing scale (07/09/21 9:24 AM)
--- OUTSIDE RECORDS SUMMARY | 2022-12-18 14:25 | XMS_ITS | Continuity of Care Document ---
Author Name Unknown Organization [facility] Address [address] [place] [address]- Care Team Providers Care Armature Winder Repair Helper Name Role Phone Not on Staff, PCP Primary Care Physician Unavail able Encounter [facility] [place] Date(s): 10/05/21 - 11/04/21 [facility] [address] [place] [address] Allergies, Adverse Reactions, Alerts No Known Medication Allergies Medications Multivitamins By Mouth, Daily, 0 Refills, Maintenance, 07/13/21 10:26:00 EDT, Partial fill upon patient request if the prescription is for a schedule II opioid drug. Start Date: 07/13/21 Status: Ordered Unisom 25 mg oral tablet 1 tablet = 25 mg, By Mouth, Daily at bedtime, # 30 tablet, 0 Refills, Maintenance, 10/27/21 17:21:00 EDT, [facility]/pharmacy #[id number], Partial fill upon patient request if the [...]
--- OUTSIDE RECORDS SUMMARY | 2022-12-18 14:25 | XMS_ITS | Continuity of Care Document ---
Author Name Unknown Organization [facility] Address Unknown Care Team Providers Care Operating Manager Name Role Phone Not on Staff, PCP Primary Care Physician Unavail able [place] [facility] [place] 10/03/21 [facility] Allergies, Adverse Reactions, Alerts No Known Medication [...]
--- OUTSIDE RECORDS SUMMARY | 2022-12-18 14:25 | XMS_ITS | Continuity of Care Document ---
Author Name Unknown Organization [facility] Address Unknown Care Team Providers Care Race Steward Name Role Phone Not on Staff, PCP Primary Care Physician Unavail able Encounter [facility] [place] Date(s): 06/22/21 - 07/22/21 [facility] Allergies, Adverse Reactions, Alerts No Known Medication Allergies Medications Multivitamins By Mouth, Daily, 0 Refills, Maintenance, 07/13/21 10:26:00 EDT, Partial fill upon patient request if the prescription is for a schedule II opioid drug. Start Date: 07/13/21 Status: Ordered Unisom 25 mg oral tablet 1 tablet = 25 mg, By Mouth, Daily at bedtime, # 30 tablet, 0 Refills, Maintenance, 07/13/21 11:12:00 EDT, [id number], Partial fill upon patient request if the prescription is for a schedule II opioid drug. Start Date: 07/13/21 Status: Ordered Vit D gummies OTC Vit [...] child(Confirmed) Active History of depression(Confirmed) 1 Active 1Reports some situational depression in past and some mild ppd after her first son. It was mild and resolved on it's own. Social History Social History Type Response Smoking Status Never (less than 100 in lifetime) entered on: 07/13/21 Sex
--- OUTSIDE RECORDS SUMMARY | 2022-12-18 14:25 | XMS_ITS | Continuity of Care Document ---
Author Name Unknown Organization [facility] ter Address [address] [place] [address]- Care Team Providers Care Electrotherapist Name Role Phone Not on Staff, PCP Primary Care Physician Unavail able Encounter [facility] [place] Date(s): 01/30/22 - 01/30/[address] [id number] Discharge Disposition: A-D/C Home Attending Physician: Graciela Mcadams MD Admitting Physician: Graciela Mcadams MD Referring Physician: Graciela Mcadams MD Allergies, Adverse Reactions, Alerts No Known Medication Allergies Immunizations Given and Recorded Vaccine Date Status Refusal Reason tetanus/diphtheria/pertussis, acel(Tdap) 12/01/21 Given Medications Unisom 25 mg oral tablet 1 tablet = 25 mg, By Mouth, Daily at bedtime, # 30 tablet, 0 Refills, Maintenance, 10/27/21 17:21:00 EDT, [facility]/pharmacy #[id number], Partial fill upon patient request if the [...] recent to oldest [Reference Range]: 1 Weight 118.2 kg (01/30/22 3:49 AM) Oxygen Saturation [94-100 %] 99 % (01/30/22 4:14 AM) Blood Pressure [90-138/55-84 mm Hg] 120/ 75mm Hg (01/30/22 4:14 AM) Respiratory Rate [16-30 br/min] 18 br/mi n (01/30/22 4:14 AM) Temperature [96.8-100.4 DegF] 97.9 DegF (01/30/22 3:49 AM) Mode of Delivery (Oxygen) Room air (01/30/22 4:14 AM) Blood pressure sites Arm, right (01/30/22 4:14 AM) Temperature Route Oral (01/30/22 3:49 AM) Dry Weight 118.2 kg (01/30/22 3:49 AM) Weight Obtained Via Standing scale (01/30/22 3:49 AM) Dry Weight Obtained Via Standing scale (01/30/22 3:49 AM) Social History Social History Type Response Smoking Status Never (less than 100 in lifetime) entered on: 07/13/21 Sex Patient Care team information Personnel Name: Not on Staff, PCP
--- OUTSIDE RECORDS SUMMARY | 2022-12-18 14:25 | XMS_ITS | Continuity of Care Document ---
Author Name Unknown Organization [facility] Address [address] [place] [address], [address] [place] [address]- Care Team Providers Care Dandy Tender Name Role Phone Not on Staff, PCP Primary Care Physician Unavail able Encounter [facility] [place] Date(s): 08/10/21 - 09/09/21 [facility] [address] [facility], [address] [place] [address]- Attending Physician: Blair Devlin Admitting Physician: AdmtrBlair Referring Physician: Admtr, Ar8 Allergies, Adverse Reactions, Alerts No Known Medication [...]
--- OUTSIDE RECORDS SUMMARY | 2022-12-18 14:25 | XMS_ITS | Continuity of Care Document ---
Author Name Unknown Organization [facility] Address [address] [place] [address]- Care Team Providers Care Postbed Stitcher Name Role Phone Not on Staff, PCP Primary Care Physician Unavail able Encounter [facility] Date(s): 08/16/21 - 09/15/21 [facility] [address] [place] [address]- Allergies, Adverse Reactions, Alerts No Known Medication [...]
--- OUTSIDE RECORDS SUMMARY | 2022-12-18 14:25 | XMS_ITS | Continuity of Care Document ---
Author Name Unknown Organization [facility] Address [address] [place] [address]- Care Team Providers Care Blood Bank Laboratory Technician Name Role Phone Not on Staff, PCP Primary Care Physician Unavail able Encounter [facility] Date(s): 10/27/21 - 11/26/21 [facility] [address] [place] [address]- Allergies, Adverse Reactions, Alerts No Known Medication Allergies Medications Multivitamins By Mouth, Daily, 0 Refills, Maintenance, 07/13/21 10:26:00 EDT, Partial fill upon patient request if the prescription is for a schedule II opioid drug. Start Date: 07/13/21 Status: Ordered Unisom 25 mg oral tablet 1 tablet = 25 mg, By Mouth, Daily at bedtime, # 30 tablet, 0 Refills, Maintenance, 10/27/21 17:21:00 EDT, [facility]/pharmacy #[id number], Partial fill upon patient request if the [...]
--- OUTSIDE RECORDS SUMMARY | 2022-12-18 14:25 | XMS_ITS | Continuity of Care Document ---
Author Name Unknown Organization [facility] ter Address [address] [place] [address]- Care Team Providers Care Ski Edge Painter Name Role Phone Not on Staff, PCP Primary Care Physician Unavail able [place] [facility] [place] 12/04/19 - 12/04/[address] [address] Encounter Diagnosis Otitis externa(Final) - 12/04/19 Otitis externa of right ear(Final) - 12/04/19 Discharge Disposition: A-D/C Home Attending Physician: Lyric Gonzalez MD Admitting Physician: Lyric Gonzalez MD Referring Physician: Not on Staff, Referring MD Allergies, Adverse Reactions, Alerts No Known Medication Allergies Medications Augmentin 875 mg-125 mg oral tablet 1 tablet, By Mouth, Every 12 hours, for 7 days, # 14 tablet, 0 Refills, Acute 12/11/19 21:24:00 EDT, 12/04/19 21:24:00 EDT, Tablet, [id number] Start Date: 12/04/19 Stop Date: 12/11/19 Status: Ordered Cipro HC 0.2%-1% otic suspension 3 drops, Ear, Right, 2 times a day, for 7 days, # 10 mL, 0 Refills, Acute 12/11/19 21:31:00 EDT, 12/04/19 21:31:00 EDT, Otic Suspension, [id number], 3 drops Ear, Right 2 times a day,x7 days Start Date: 12/04/19 Stop Date: 12/11/19 Status: Ordered Vital Signs Most recent to oldest [Reference Range]: 1 2 3 Oxygen Saturation [94-100 %] 100 % (12/04/19 9:49 PM) 100 % (12/04/19 8:54 PM) 100 % (12/04/19 8:49 PM) Pulse Rate [55-90 bpm] 74 bpm (12/04/19 9:49 PM) 73 bpm (12/04/19 8:54 PM) 98 bpm *H* (12/04/19 8:49 PM) Blood Pressure [90-138/55-84 mm Hg] 127/66mm Hg (12/04/19 9:49 PM) 135/62mm Hg (12/04/19 8:54 PM) Respiratory Rate [16-30 br/min] 18 br/min (12/04/19 9:49 PM) 18 br/min (12/04/19 8:54 PM) 18 br/min (12/04/19 8:49 PM) Temperature [96.8-100.4 DegF] 98.2 DegF (12/04/19 9:49 PM) 98.3 DegF (12/04/19 8:54 PM) Mode of Delivery (Oxygen) Room air (12/04/19 9:49 PM) Room air (12/04/19 8:54 PM) Room air (12/04/19 8:49 PM) Blood pressure sites Arm, right (12/04/19 9:49 PM) Arm, right (12/04/19 8:54 PM) Temperature Route Oral (12/04/19 9:49 PM) Oral (12/04/19 8:54 PM)
--- OUTSIDE RECORDS SUMMARY | 2022-12-18 14:25 | XMS_ITS | Continuity of Care Document ---
Author Name Unknown Organization [facility] Address [address] [address]- Care Team Providers Care Meat Cutter Name Role Phone Not on Staff, PCP Primary Care Physician Unavail able Encounter [facility] [place] Date(s): 12/29/21 - 01/28/22 [facility] [address] [address]- Allergies, Adverse Reactions, Alerts No Known Medication Allergies Immunizations Given and Recorded Vaccine Date Status Refusal Reason tetanus/diphtheria/pertussis, acel(Tdap) 12/01/21 Given Medications Unisom 25 mg oral tablet 1 tablet = 25 mg, By Mouth, Daily at bedtime, # 30 tablet, 0 Refills, Maintenance, 10/27/21 17:21:00 EDT, [facility]/pharmacy #[id number], Partial fill upon patient request if the [...]
--- OUTSIDE RECORDS SUMMARY | 2022-12-18 14:25 | XMS_ITS | Continuity of Care Document ---
Author Name Unknown Organization [facility] ter Address [address] [place] [address]- Care Team Providers Care Semiconductor Processing Group Leader Name Role Phone Not on Staff, PCP Primary Care Physician Unavail able Encounter [facility] Date(s): 07/09/21 - 07/09/[address] [address]- Discharge Disposition: Transferred to an intermediate care faci Attending Physician: Anirudh Wells MD Admitting Physician: Anirudh Wells MD Referring Physician: Not on Staff, Referring MD Allergies, Adverse Reactions, Alerts No Known Medication Allergies Vital Signs Most recent to oldest [Reference Range]: 1 Oxygen Saturation [94-100 %] 100 % (07/09/21 8:50 AM) Pulse Rate [55-90 bpm] 80 bpm (07/09/21 8:50 AM) Mode of Delivery (Oxygen) Room air (07/09/21 8:50 AM)
--- OUTSIDE RECORDS SUMMARY | 2022-12-18 14:25 | XMS_ITS | Continuity of Care Document ---
Author Name Unknown Organization [facility] Address [address] [address]- Care Team Providers Care Flight Teacher Name Role Phone Not on Staff, PCP Primary Care Physician Unavail able Encounter [facility] [place] Date(s): 12/02/21 - 01/20/22 [facility] [address] [place] [address]- Attending Physician: Not on Staff, Attending MD Referring Physician: Gabi Garcia CNM Allergies, Adverse Reactions, Alerts No Known Medication Allergies Immunizations Given and Recorded Vaccine Date Status Refusal Reason tetanus/diphtheria/pertussis, acel(Tdap) 12/01/21 Given Medications Unisom 25 mg oral tablet 1 tablet = 25 mg, By Mouth, Daily at bedtime, # 30 tablet, 0 Refills, Maintenance, 10/27/21 17:21:00 EDT, [facility]/pharmacy #[id number], Partial fill upon patient request if the [...]
--- OUTSIDE RECORDS SUMMARY | 2022-12-18 14:25 | XMS_ITS | Continuity of Care Document ---
Author Name Unknown Organization [facility] ter Address [address] [place] [address]- Care Team Providers Care Electrical Sign Wirer Name Role Phone Not on Staff, PCP Primary Care Physician Unavail able Encounter [facility] [place] Date(s): 12/29/21 - 12/29/[address] [address] Discharge Disposition: A-D/C Home Attending Physician: Teresa Colvin MD Admitting Physician: Teresa Colvin MD Referring Physician: Teresa Colvin MD Allergies, Adverse Reactions, Alerts No Known [...] opioid drug., 174, cm, 10/05/21 14:32:00 EDT, [facility]... Start Date: 10/27/21 Status: Ordered Problem List [...] recent to oldest [Reference Range]: 1 2 Weight 117.2 kg (12/29/21 1:37 PM) Oxygen Saturation [94-100 %] 100 % (12/29/21 1:58 PM) 100 % (12/29/21 1:22 PM) Blood Pressure [90-138/55-84 mm Hg] 119/ 68mm Hg (12/29/21 1:22 PM) Respiratory Rate [16-30 br/min] 18 br/mi n (12/29/21 1:22 PM) Temperature [96.8-100.4 DegF] 98.2 DegF (12/29/21 1:37 PM) Mode of Delivery (Oxygen) Room air (12/29/21 1:22 PM) Blood pressure sites Arm, right (12/29/21 1:22 PM) Temperature Route Oral (12/29/21 1:37 PM) Weight Obtained Via Standing scale (12/29/21 1:37 PM) Social History Social History Type Response Smoking Status Never (less than 100 in lifetime) entered on: 07/13/21 Sex Patient Care team information Personnel Name: Not on Staff, PCP
--- OUTSIDE RECORDS SUMMARY | 2022-12-18 14:25 | XMS_ITS | Continuity of Care Document ---
Author Name Unknown [facility] Address [address] [address]- Care Team Providers Care Draw Bench Operator Name Role Phone Not on Staff, PCP Primary Care Physician Unavail able [place] [facility] [place] 11[place]21 - 01/20/22 [facility] [address] [address]- Attending Physician: Not on Staff, Attending MD Referring Physician: Yu Quinones CNM Head Allergies, Adverse Reactions, Alerts No Known Medication Allergies Immunizations Given and Recorded Vaccine Date Status Refusal Reason tetanus/diphtheria/pertussis, acel(Tdap) 12/01/21 Given Medications Unisom 25 mg oral tablet 1 tablet = 25 mg, By Mouth, Daily at bedtime, # 30 tablet, 0 Refills, Maintenance, 10/27/21 17:21:00 EDT, [facility]/pharmacy #[id number], Partial fill upon patient request if the [...]
--- OUTSIDE RECORDS SUMMARY | 2022-12-18 14:25 | XMS_ITS | Continuity of Care Document ---
Author Name Unknown Organization [facility] Address Unknown Care Team Providers Care V Belt Skiver Name Role Phone Not on Staff, PCP Primary Care Physician Unavail able Encounter [facility] Date(s): 06/23/21 - 08/13/21 [facility] Attending Physician: Not on Staff, Attending MD [...] ant in prior , currently (Confirmed) Active Obese class II(Confirmed) Active 1Reports some situational depression in past and some mild ppd after her first son. It was mild and resolved on it's own. Social History Social History Type Response Smoking Status Never (less than 100 in lifetime) entered on: 07/13/21 Sex
--- OUTSIDE RECORDS SUMMARY | 2022-12-18 14:25 | XMS_ITS | Continuity of Care Document ---
Author Name Unknown Organization [facility] Address [address] [place] [address]- Care Team Providers Care Zigzag Stitcher Name Role Phone Not on Staff, PCP Primary Care Physician Unavail able [place] [facility] [place] 08[place]16[place]21 - 09/15/21 [facility] [address] [place] [address]- Allergies, Adverse Reactions, Alerts No Known Medication [...]
--- OUTSIDE RECORDS SUMMARY | 2022-12-18 14:25 | XMS_ITS | Continuity of Care Document ---
Author Name Unknown Organization [facility] Address [address] [place] [address]- Care Team Providers Care Lead Care Manager Name Role Phone Not on Staff, PCP Primary Care Physician Unavail able [place] [facility] [place]23[place]21 - 01/22/22 [facility] [address] [address] Attending Physician: Blair Devlin Admitting Physician: Blair Devlin Referring Physician: AdmtrBlair Allergies, Adverse Reactions, Alerts No Known Medication Allergies Immunizations Given and Recorded Vaccine Date Status Refusal Reason tetanus/diphtheria/pertussis, acel(Tdap) 12/01/21 Given Medications Unisom 25 mg oral tablet 1 tablet = 25 mg, By Mouth, Daily at bedtime, # 30 tablet, 0 Refills, Maintenance, 10/27/21 17:21:00 EDT, [facility]/pharmacy #[id number], Partial fill upon patient request if the [...]
--- OUTSIDE RECORDS SUMMARY | 2022-12-18 14:25 | XMS_ITS | Continuity of Care Document ---
Author Name Unknown Organization [facility] Address [address] [address]- Care Team Providers Care Frame Nailer Name Role Phone Not on Staff, PCP Primary Care Physician Unavail able [place] [facility] [place] Date(s): 03/25/22 - 04/24/22 [facility] [address] [place] [address] Attending Physician: Blair Devlin Admitting Physician: Blair Devlin Referring Physician: AdmBlair blackwell Allergies, Adverse Reactions, Alerts No Known Medication [...] Team Related Persons Name: DARREL DUNNE Address: [address] Address: home [address] [place], [place] Name: ESVIN MANSFIELD Address: home [address] [place], [place]
--- OUTSIDE RECORDS SUMMARY | 2022-12-18 14:25 | XMS_ITS | Continuity of Care Document ---
Author Name Unknown Organization [facility] Address [address] [address]- Care Team Providers Care Compression Molding Machine Setter Name Role Phone Not on Staff, PCP Primary Care Physician Unavail able Encounter [facility] Date(s): 02/10/22 - 03/12/22 [facility] and [facility] [address] [place] [address]- Allergies, Adverse Reactions, Alerts No Known Medication [...] Team Related Persons Name: DARREL DUNNE Address: [address] Address: [address] [place], [place] Name: ESVIN MANSFIELD Address: home [address] [place] [address]
--- OUTSIDE RECORDS SUMMARY | 2022-12-18 14:25 | XMS_ITS | Continuity of Care Document ---
Author Name Unknown Organization [facility] Address [address] [address]- Care Team Providers Care Fire Crew Specialist Name Role Phone Not on Staff, PCP Primary Care Physician Unavail able Encounter [facility] Date(s): 01/10/22 - 02/09/22 [facility] [address] [address]- Allergies, Adverse Reactions, Alerts No Known Medication Allergies Immunizations Given and Recorded Vaccine Date Status Refusal Reason tetanus/diphtheria/pertussis, acel(Tdap) 12/01/21 Given Medications Unisom 25 mg oral tablet 1 tablet = 25 mg, By Mouth, Daily at bedtime, # 30 tablet, 0 Refills, Maintenance, 10/27/21 17:21:00 EDT, [facility]/pharmacy #[id number], Partial fill upon patient request if the prescription is for a schedule II opioid drug., 174, cm, 10/05/21 14:32:00 EDT, Katharina. Start Date: 10/27/21 Status: Ordered Problem List [...] Care team information Care Team Personnel Name: Not on Staff, PCP Position: [facility] Physician (General Medicine) Member Role: PCP Care Team Related Persons Name: ESVIN MANSFIELD Address: [address] [place] [address]
--- OUTSIDE RECORDS SUMMARY | 2022-12-18 14:25 | XMS_ITS | Continuity of Care Document ---
Author Name Unknown Organization [facility] Address [address] [address]- Care Team Providers Care Circuit Board Inspector Name Role Phone Not on Staff, PCP Primary Care Physician Unavail able Encounter [facility] Date(s): 12/09/21 - 01/08/22 [facility] [address] [place] [address]- Allergies, Adverse Reactions, Alerts No Known Medication [...] tablet, 0 Refills, Maintenance, 10/27/21 17:21:00 EDT, [facility] #[id number], Partial fill upon patient request [...]
--- OUTSIDE RECORDS SUMMARY | 2022-12-18 14:25 | XMS_ITS | Continuity of Care Document ---
Author Name Unknown Organization [facility] Address [address] [place] [address]- Care Team Providers Care Engine Dynamometer Tester Name Role Phone Not on Staff, PCP Primary Care Physician Unavail able [facility] Date(s): 08/19/21 - 09/18/21 [facility] [address] [place] [address]- Allergies, Adverse Reactions, Alerts No Known Medication [...]
--- OUTSIDE RECORDS SUMMARY | 2022-12-18 14:25 | XMS_ITS | Continuity of Care Document ---
Author Name Unknown Organization [facility] ter Address [address] [place] [id number] Care Team Providers Care Supervisor [employer] Name Role Phone Not on Staff, PCP Primary Care Physician Unavail able Encounter [facility] [place] Date(s): 02/16/22 - 02/19/[address] [id number] Discharge Disposition: A-D/C Home Attending Physician: Teresa [...] 0, Main... Start Date: 02/19/22 Status: Ordered Acetaminophen Tablet 650 mg, Tablet, By Mouth, (1-3), may give 325mg per patient preference and re- dose with 325mg within 4 hours if needed. Patient should only receive a total of 650mg of Acetaminophen every 4 hours., 02/19/22 16:00:00 EST Start Date: 02/19/22 Stop Date: 02/19/22 Status: Completed docusate sodium 100 mg oral capsule 100 mg, 1, capsule, By Mouth, 2 times a day, # 60 capsule, Refills 0, Tot. Refills 0, Maintenance, 02/19/22 8:13:00 EST, Route to Pharmacy Electronically, [facility]/pharmacy #[id number], Partial fill upon patient request if the [...] Tot. Refills... Start Date: 02/19/22 Status: Ordered Ibuprofen Tablet 800 mg, Tablet, By Mouth, (4-6), may give 400mg per patient preference and re- dose with 400mg within 8 hours if needed. Patient should only receive a total of 800mg of Ibuprofen every 8 hours., 02/19/22 12:00:00 EST Start Date: 02/19/22 Stop Date: 02/19/22 Status: Completed oxyCODONE 5 mg oral tablet 5 mg, 1, tablet, By Mouth, Every 3 hours, PRN, (7-10), # 10 tablet, Refills 0, Tot. Refills 0, Maintenance, Pain , Severe, 02/19/22 8:13:00 EST, Route to Pharmacy Electronically, [facility]/pharmacy #[id number], Partial fill upon patient request if the prescriptio... Start Date: 02/19/22 Status: Ordered OxyCODONE IR Tablet 5 mg, Tablet, By Mouth, Every 3 hours, PRN for Pain , Severe, (7-10), Routine, 02/17/22 18:31:00 EST Start Date: 02/17/22 Stop Date: 02/24/22 Status: Ordered Problem List Condition Confirmation Course [...] resolved on it's own. 2Symptoms began 08/19/21. Procedures Procedure Date Related Diagnosis Body Site Status delivery only; 02/16/22 C ompleted Vital Signs Most recent to oldest [Reference Range]: 1 2 3 4 Height 173 cm (02/19/22 12:05 AM) 173 cm (02/18/22 12:00 AM) 173 cm (02/17/22 11:30 PM) Weight 118.5 kg (02/16/22 9:27 AM) 118.5 kg (02/16/22 8:54 AM) Oxygen Saturation [94-100 %] 97 % (02/19/22 10:00 AM) 100 % (02/19/22 12:05 AM) 100 % (02/18/22 4:00 PM) Pulse Rate [55-90 bpm] 64 bpm (02/19/22 10:00 AM) 75 bpm (02/19/22 12:05 AM) 79 bpm (02/18/22 4:00 PM) Body Mass Index [18.5-24.99 kg/m2] 39.59 kg/m2 *>HHI* (02/16/22 8:54 AM) Blood Pressure [90-138/55-84 mm Hg] 113/56mm Hg (02/19/22 10:00 AM) 127/64mm Hg (02/19/22 12:05 AM) 115/64mm Hg (02/18/22 4:00 PM) Respiratory Rate [16-30 br/min] 18 br/min (02/19/22 6:43 PM) 18 br/min (02/19/22 3:48 PM) 18 br/min (02/19/22 3:48 PM) 18 br/min (02/19/22 3:48 PM) Temperature [96.8-100.4 DegF] 98.0 DegF (02/19/22 10:00 AM) 97.9 DegF (02/19/22 12:05 AM) 97.7 DegF (02/18/22 4:00 PM) Mode of Delivery (Oxygen) Room air (02/19/22 10:00 AM) Room air (02/19/22 12:05 AM) Room air (02/18/22 4:00 PM) Blood pressure sites Arm, right (02/19/22 12:05 AM) Arm, right (02/18/22 4:00 PM) Arm, right (02/18/22 8:00 AM) Temperature Route Oral (02/19/22 10:00 AM) Oral (02/19/22 12:05 AM) Oral (02/18/22 4:00 PM) Dry Weight 118.5 kg (02/16/22 8:54 AM) Social History Social History Type Response Smoking Status Never (less than 100 in lifetime) entered on: 07/13/21 Sex History and physical note * Toya Valle MD: PERFORM Event Display: History and Physical Hospital Authored Date: Patient: ??NELSY BREWSTER ? Age:??31 Years?Sex:??Female?:??1990?? OB Reason for Admission OB Reason for Admission Reason for admission: Repeat Reason for Planned : Elective repeat LMP/EGA/GEE Gestational Age (EGA) and GEE? * Note: EGA calculated as of 02/16/2022 ?? GEE:??02/22/2022?EGA*:??39 weeks 1 day ? History?(1,0,1,1)?Method:??Last Menstrual Period??(05/18/2021) History of Present Illness Patient is a 31??year old at??39+1 presenting for elective repeat section and bilateral salpingectomy. She denies contractions,??leakage of fluid, or vaginal bleeding. Endorses good movement. Denies fever/chills, headache, dizziness, changes in vision, chest pain, shortness of breath,??right upper quadrant??pain, or swelling. Overall, doing well with no complaints. ?? OB Hx: - G1: SAB - G2: 38 weeks in [place], unknown indication - G3: Current ?? PMH: Obesity (BMI 39), anemia, gestational thrombocytopenia (Plts 126 on 02/01), history of depression PSH: x1 Meds: None Allergies: No known medication allergies Review of Systems All systems reviewed and negative except as noted above in HPI. Physical Exam Vitals & Measurements T:??98.1?F ?? RI:??92?? RR:??18?? BP:??120/71?? HT:??173??cm?? WT:??118.5??kg?? BMI:??39.59?? Constitutional:??Well-developed, no acute distress. Respiratory:??Equal chest rise bilaterally, no labored breathing.? Abdomen/GI:??Soft, non-tender, non-distended. No guarding or rebound tenderness.??Gravid. Extremities:??Warm and well-perfused.?? Skin:??Normal for ethnicity. Neurological/Psychiatric:??Appearance appropriate, mood and affect stable. Assessment/Plan Assessment:??Patient is a 31 year old at 39+1 presenting for elective repeat section and bilateral salpingectomy. GBS positive, Rh positive. Moderate risk PPH given prior . Plan to proceed to OR for planned procedure. ?? Patient was consented for section with bilateral partial vs total salpingectomy. We discussed the risks of surgery including bleeding, infection, risks of anesthesia, and damage to surrounding structures. She would accept blood if needed in an emergency. Discussed that the risk of infection and use of prophylactic antibiotics are indicated with this procedure. Counseled regarding risk ofdamage to bladder, bowel, ureters, nerves, blood vessels, and muscles. Discussed that if any damageoccurred we would address it in the OR either ourselves or would call in the appropriate surgeons to assist. The patient was counseled that sterilization is meant to be permanent and non-reversible. The risk of sterilization failure exists, and in the event of failure, she would be at an increased risk of an ectopic , which is a life threatening emergency. Alternative methods of reversible contraception were reviewed. Patient wishes to proceed with repeat section and bilateral salpingectomy. All questions were answered and consents were signed. ?? History of delivery (Z98.891):? Uterine scar x1, performed in [place], no records available Placenta posterior Admit to [facility] for repeat and bilateral salpingectomy CBC, T&S NPO IVF Antibiotics ordered - 2g Ancef Preoperative medications ordered Surgical consent on chart ?? Anemia in (O99.019):? - 02/01: Hgb 9.5 - s/p iron infusion 02/11, unable to tolerate oral iron - (p) Admission CBC ?? Gestational thrombocytopenia (O99.119):? - 02/01: Plt 126 - (p) Admission CBC ?? History of depression (Z87.59):? - ( ) 2 week BHN visit ?? Unwanted fertility (Z30.09):? - Sterilization consents signed 12/23 - Bilateral salpingectomy to be performed at time of RCS ?? OB History History?(1,0,1,1)? # 1 ?Baby 1 ?Outcome Date:??2012 ?Outcome or Result:??Spontaneous ?Gest Age:??Unknown ? Outcome:? Sex:??-- ?? # 2 ?Baby 1 ?Outcome Date:??03/02/2014?Outcome or Result:?Gest Age:??38 weeks ? Outcome:??Live ? Sex:??Male?Wt:?4536 g ? Complications:??Macrosomia ?Hospital:??[place] ?Comment:??Was told baby was too big so c/section done. No IOL attempted. Labs Labs Labs & Tests Antibody Screen: Negative (07/09/21) Blood Type: O Positive (07/09/21) Chlamydia Trachomatis Amplified Probe: NEGATIVE (02/01/22) Creatinine-Blood: 0.5 mg/dL (12/29/21) Down Syndrome Age Risk FTS: Age Risk: (08/10/21) Down Syndrome Scrn Risk FTS: Screening Risk: (08/10/21) Glucose 50 Gm, +60 Minutes: 102 mg/dL (12/02/21) Hct:??31.6 %??Low (02/01/22) Hemoglobinopathy Interpretation: Normal hemoglobins. (08/03/21) Hepatitis B Surface Antigen: NEGATIVE (08/03/21) Hepatitis C Ab: NEGATIVE (08/03/21) Hgb:??9.5 Gm/dL??Low (02/01/22) HIV 4th Generation Ab-Ag Result: NEGATIVE (08/03/21) RPR Titer Result: NOT INDICATED (12/02/21) Rubella IgG Ab: POSITIVE (08/03/21) Syphilis Screen by MELINDA: NEGATIVE (12/02/21) Trisomy 18 Scrn Risk FTS: Screening Risk: (08/10/21) Urine Culture: Urine Culture (08/10/21) Problem List Active Active Problem List +COVID-19 during : (Medical) Symptoms began 08/19/21. Anemia: (Medical) BMI 38.7, pre- - Obese: (Medical) Gestational thrombocytopenia: (Medical) History of delivery, currently : (Medical) History of macrosomia in infant in prior , currently : (Medical) History of depression: (Medical) Reports some situational depression in past and some mild ppd after her first son. ??It was mild and resolved on it's own. History of varicella as a child: (Medical) Obese class II: (Medical) : (Obstetric) (05/19/21) contractions: (Medical) Procedure/Surgical History delivery Home Medications Doxylamine: 25 mg = 1 tablet, By Mouth, Daily at bedtime Allergies No Known Medication Allergies Social History Alcohol Use: Never., 07/13/2021 Electronic Cigarette/Vaping Electronic Cigarette Use: Never., 07/13/2021 Substance Abuse Use: Never., 07/13/2021 Tobacco Use: Never (less than 100 in lifetime)., 07/13/2021 Family History Mother: Cancer of breast; Hypertension Father: Asthma; GERD - Gastro-esophageal reflux disease Brother: Cancer - unknown origin Mat. Grandmother: Arthritis; Diabetes mellitus type 2; Hypertension Pat. Grandmother: Asthma; GERD - Gastro-esophageal reflux disease Plan OB Plan Feeding Plan: Breast milk (02/16/22) Patient Requests: C - section scheduled with pptl 02/16 '[facility] [place] Girl! (02/16/22) * Marii FELIX, Teresa Rouse: PERFORM Event Display: History and Physical Hospital Authored Date: ?Attending Attestation:??I have seen and evaluated this patient. ??I have discussed the case and its management with the resident and agree with the findings and plan as documented in the resident???s note.[facility] Hospital Progress note * Nora Doyle RN: PERFORM, SIGN, VERIFY Event Display: Progress Note Hospital Authored Date: Patient: NELSY BREWSTER Age: 31 years Sex: Female : 1990 Associated Diagnoses: None Author: Nora Doyle RN Pt A&Ox3, VSS, tolerating diet with no reported N/V. She denies any SOB, dizziness, chest pain - c/o pain at incision site, Tylenol, Motrin and Oxycodone administered with good effect. Incision has steris, CDI, fundus is down and firm, pt reports mild rubra lochia. Pt is ambulating independently, voiding and passing flatus without difficulty. is rooming in with pt, FOB at the bedside assisting with care, call zaidi within reach. Findings Problem Related to Alteration in Comfort : Alteration in Comfort/new 02/18/2022 22:00 EST Alteration in Comfort Related to Surgery, Other: c/s Goals & Outcomes: Comfort Pt will report acceptable level of comfort & pain control, Pt will state importance of adhering to pain strategy regime, Pt will demonstrate necessary skills to manage pain, Non-verbal indicators will indicate comfort/pain control Interventions Implemented: Comfort Assess pain using appropriate pain scale/tools, Assess aggravating factors & prevent them accordingly, Assess alleviating factors & promote them accordingly Goals/Interventions, Comfort Yes Comfort, Problem Start 02/16/2022 17:40 Reviewed plan with, Comfort Patient Patient Progression, Comfort Pt progressing according to plan Comfort, Problem Ongoing Yes . * Rashmi Mendiola RN: VERIFY, PERFORM, SIGN Event Display: Progress Note Hospital Authored Date: Patient: NELSY BREWSTRE Age: 31 years Sex: Female : 1990 Associated Diagnoses: None Author: Rashmi Mendiola RN patient day 2 s/p c/s. Abdomen a bit distended. Patient voiding with no problems, started to pass gas, no BM yet. Fundus firm, -1, mild/mod flow. Incision well approximated, no drainage noted, steri strips in place. Continue to monitor. Findings Problem Related to Alteration in Comfort 02/18/2022 8:00 EST Alteration in Comfort Related to Surgery, Other: c/s Goals & Outcomes: Comfort Pt will report acceptable level of comfort & pain control, Pt will state importance of adhering to pain strategy regime, Pt will demonstrate necessary skills to manage pain, Non-verbal indicators will indicate comfort/pain control Interventions Implemented: Comfort Assess pain using appropriate pain scale/tools, Assess aggravating factors & prevent them accordingly, Assess alleviating factors & promote them accordingly Goals/Interventions, Comfort Yes Comfort, Problem Start 02/16/2022 17:40 Reviewed plan with, Comfort Patient Patient Progression, Comfort Pt progressing according to plan Comfort, Problem Ongoing Yes . * Toya Valle MD: PERFORM Event Display: Progress Note Hospital Authored Date: Patient: ??NELSY BREWSTER ? Age:??31 Years?Sex:??Female?:??1990?? Subjective Patient reports she is feeling well this morning, but she is still experiencing a lot of pain. The medication helps initially, but??then wears off. Her bleeding has remained light. She is ambulating,voiding spontaneously, and tolerating regular diet. Not yet passing flatus.??Denies any headache, vision changes, right upper quadrant pain, chest pain, shortness of breath, or new onset swelling. Review of Systems Constitutional:??No fever, chills, or weakness.? HEENT:??No vision changes. Cardiovascular: No chest pain or palpitations. Respiratory: No shortness of breath. Gastrointestinal: No RUQ pain, epigastric pain, nausea/vomiting or diarrhea. Moderate abdominal pain. Gynecologic: Lochia present. Neurologic: No headache, dizziness, or syncope. Physical Exam Vitals & Measurements T:??98.6?F ?? HR:??56(Monitored)?? RI:??67?? RR:??18?? BP:??112/70?? SpO2:??100%?? HT:??173??cm?? WT:??4.204??kg?? BMI:??39.59?? General: Well-appearing woman in no acute distress. Lung: Normal work of breathing, able to speak in full sentences. Abdomen: Soft, non-distended, appropriately tender. Fundus firm and contracted below umbilicus. Well-healing Pfannenstiel skin incision covered with steri- strips, no surrounding erythema. SENIOR HR MANAGER:??Minimal lochia present. Psychiatric: The patient is alert and oriented with an appropriate mood and affect.?? Extremities: No pitting edema or rash. Assessment/Plan Assessment:??Patient is a 31 yo G3 now P2 POD2 following uncomplicated repeat C- section and bilateral salpingectomy??with QBL 275 mL. Patient meeting appropriate early and post-operative milestones. Regarding pain control, patient only receiving oxycodone every 4 or 5 hours. Reminded herit is ordered for every 3 hours, so she can ask for it that frequently. Will also try heating pad and abdominal binder. ?? care following delivery (Z39.2):? - Continue routine care - Diet: Regular - Pain control: Ibuprofen & Tylenol, Oxycodone prn - Simethicone, docusate - Encourage ambulation, SCDs when not ambulating - Cherry remains in place, monitor urine output - PPBC: Bilateral salpingectomy - Feeding plan: ?? History of depression (Z87.59):? - ( ) 2 week BHN visit ?? OB Summary : 3 Parity: 1 . Baby A - Weight: 4.204 kg Baby A - Date, Time of : 02/16/22 17:40:00 Baby A - Gender: Female Baby A - Complications: None EGA at Documented Date, Time: 39W 1D Weight at Delivery Baby A - Delivery Type: , low transverse Delivery Complications: None OB History History?(1,0,1,1)? # 1 ?Baby 1 ?Outcome Date:??2012 ?Outcome or Result:??Spontaneous ?Gest Age:??Unknown ? Outcome:? Sex:??-- ?? # 2 ?Baby 1 ?Outcome Date:??03/02/2014?Outcome or Result:?Gest Age:??38 weeks ? Outcome:??Live ? Sex:??Male?Wt:?4536 g ? Complications:??Macrosomia ?Hospital:??[place] ?Comment:??Was told baby was too big so c/section done. No IOL attempted. Active Problem List Active Problem List +COVID-19 during : (Medical) Symptoms began 08/19/21. Anemia: (Medical) BMI 38.7, pre- - Obese: (Medical) Gestational thrombocytopenia: (Medical) History of delivery, currently : (Medical) History of macrosomia in in prior , currently : (Medical) History of depression: (Medical) Reports some situational depression in past and some mild ppd after her first son. ??It was mild and resolved on it's own. History of varicella as a child: (Medical) Obese class II: (Medical) : (Obstetric) (05/19/21) contractions: (Medical) Home Medications Doxylamine: 25 mg = 1 tablet, By Mouth, Daily at bedtime Medications Medications (10) Active SCHEDULED: (3) Acetaminophen 325 mg Tablet (Acetaminophen Tablet) ??650 mg, By Mouth, Every 4 hours Docusate Sodium 100 mg Capsule (Docusate Sodium Capsule) ??100 mg 1 capsule, By Mouth, 2 times a day Ibuprofen 800 mg Tablet (Ibuprofen Tablet) ??800 mg, By Mouth, Every 8 hours CONTINUOUS: (0) PRN: (7) diphenhydrAMINE 25 mg Tablet (DiphenhydrAMINE Tablet) ??25 mg, By Mouth, Every 4 hours FENTanyl 50 mcg/mL Inj (2 mL) (FENTanyl Inj) ??25 mcg 0.5 mL, IV Push, Every 5 minutes Metoclopramide 5 mg/mL Inj (2 mL) (Metoclopramide Inj) ??10 mg, IV Push, Every 6 hours nalOXONE ??400mcg/mL Inj (nalOXONE Inj) ??0.1 mg 0.25 mL, IV Push Slowly, Every 15 minutes Ondansetron 2mg/mL Inj (2mL Vial) (Ondansetron Inj) ??4 mg, IV Push, Once OxyCODONE 5 mg IR Tablet (OxyCODONE IR Tablet) ??5 mg, By Mouth, Every 3 hours Simethicone 80 mg Chewable Tablet (Simethicone Tablet) ??80 mg, Chew, 3 times a day * Nena FELIX, Sandra Rouse: PERFORM Event Display: Progress Note Hospital Authored Date: I saw the above patient and reviewed the findings and plan with the resident. Agree with assessmentand plan. K Nena FELIX Note * TrudeNora silveira RN: PERFORM Event Display: Discharge/Transfer Note Hospital Authored Date: [id number] Nursing Discharge Note Entered On: 02/19/2022 21:08 EST Performed On: 02/19/2022 21:07 EST by Nora Doyle RN Nursing Discharge Note 2 Discharge Time : 02/19/2022 21:04 EST Discharge Level of Care at Discharge : Home/Longterm/Foster Care Patient Left Unit Via : Ambulatory Patient Accompanied Off Unit with : Significant other DC Instructions Provided & Signed by Pt : Yes Patient Understands D/C Instructions : Yes Patient Instructions Discharge Signed : Yes Did Pt have Specialty Bed or Wound Vac : No Nora Doyle RN - 02/19/2022 21:07 EST * Alka Weber MD: PERFORM Event Display: Discharge/Transfer Note Hospital Authored Date: [id number] Patient: ??NEY NELSY ? Age:??31 Years?Sex:??Female?:??1990?? Admit Date Admission Date: 02/16/2022 Discharge Date 02/19/22 OB Reason for Admission OB Reason for Admission Reason for admission: Repeat Reason for Planned : Elective repeat [facility] Hospital Course Patient is a 31 year old at 39+1 presenting for elective repeat section and bilateral salpingectomy, which was uncomplicated with a QBL 275 mL. Her course was uncomplicate. She met all milestones and was safely discharged on POD3. Objective/Physical Exam on Day of Discharge Vitals & Measurements T:??97.9?F ?? HR:??56(Monitored)?? RI:??75?? RR:??20?? BP:??127/64?? SpO2:??100%?? HT:??173??cm?? WT:??4.204??kg?? BMI:??39.59?? Constitutional:??No acute distress, resting comfortably. Respiratory:??Normal work of breathing. Lungs clear to auscultation bilaterally. Cardiovascular:??Regular rate and rhythm, no murmurs.? Abdomen/GI:??Soft, mildly distended, no guarding. Low transverse incision covered with steri strips, appears clean, dry and in tact. Gynecologic:??Minimal lochia. Extremities:??No calf tenderness or edema. Skin:??No rash or jaundice. Neurological/Psychiatric:??Mood and affect congruent and stable. Assessment/Plan/Discharge Diagnosis Assessment:??31yo G3 now P2 on POD3 s/p repeat CS and tubal ligation. Doing well and feeling ready for discharge. She is ambulating, tolerating regular diet, voiding without issue, and passing flatus. ?? Anemia in (O99.019):? Continue PO iron ?? care following delivery (Z39.2):? Continue routine & postoperative care Pain Management: continue Ibuprofen & Tylenol, oxy as needed (x) Rx on discharge Incision: appears well healing Infant feeding: & formula feeding VTE prophylaxis: SCDs while in bed, encourage ambulation Follow up visit in 4-6 wk in [facility] - requested Care: ??Routine postop care Future Appointments [facility] in 6 weeks Delivery Summary Delivery Summary Maternal Information ??Delivery Information ?Gestational Age at Delivery: ??39W 1D ?Delivery Complications: ??None ?Blood Loss - Quantitative: ??275 mL ? Baby A ??Delivery Information ?Delivery Type: ??, low transverse ?Reason for : ??Elective repeat ? Priority: ??Scheduled ?Date, Time of : ??02/16/22 17:40:00 ?Delayed Cord Clamping: ??Yes ?Placenta Delivery Date/Time: ??02/16/22 17:42:00 ?Placenta Delivery Method: ??Assisted ?Placenta Appearance: ??Normal ?Placenta to Pathology: ??No ??Care Team ?Time NICU Team Called: ??02/16/22 17:39:00 ??Labor Information ?3rd Stage, Length of Labor: ??2 min ?? Information ? Outcome: ??Live ? Weight: ??4.204 kg ? Score 1 minute: ??9 ? Score 5 minute: ??9 ? Score 10 minute: ??9 ?Transferred To: ?? Care area with Family ? Complications: ??None ?Gender: ??Female ? Procedures Performed Section Repeat PPTL ?? Discharge Medications ???Acetaminophen (acetaminophen 325 mg oral tablet)???Docusate (docusate sodium 100 mg oral capsule)???Ibuprofen (ibuprofen 800 mg oral tablet)???Oxycodone (oxyCODONE 5 mg oral tablet) Stop taking these medications ???Doxylamine (Unisom 25 mg oral tablet) Immunizations during Hospitalization Vaccine Date Statustetanus/diphtheria/pertussis, acel(Tdap) 12/01/2021 Given Contraception Immediate tubal ligation ? Feeding Method [place] Feeding Method: (02/16/22 18:33:00) Patient Education Titles Pain After Childbirth?? Discharge Instructions for Section ()?? Follow-Up Appointments Added Follow Up ?Time Frame ?Comments [facility]?6 ?? Weeks Patient Instructions Discharge: home, Call your the office with any concerns including:?? Heavy vaginal bleeding?? Fever of 100.4 or greater Foul-smelling vaginal discharge Difficulty or burning with urination?? Nausea and vomiting with inability to tolerate food,?? Pain not controlled by your prescribed medications Shortness of breath or chest pain. Swelling of the extremities. ?? General Instructions: - Avoid lifting anything 15 lbs or greater until cleared by doctor. - Stairs are OK but avoid multiple trips/ skipping steps and go slowly. - Walk as often as you are able. - Do not put anything in the vagina. No intercourse, tampons, or douching - Continue your stool softeners (examples: colace/docusate, senna, miralax) - Shower as usual. Avoid tubs/ soaking/ pools. * Jane FELIX, Kami T: PERFORM Event Display: Discharge/Transfer Note Hospital Authored Date: ?? Attending Attestation ? I saw and evaluated the patient myself during rounds in the hospital. ?? I discussed the patient with the resident and agree with the findings and plan as documented in the resident's note.?I agree with the discharge summary as described. ? Kami Lara MD, MPH OBGYN ?? * Marlena MAKI, Rashmi: PERFORM Event Display: Patient Education/Instruction Authored Date: Inpatient Adult Discharge Instructions [address] [address] Name: NELSY BREWSTER : 1990 Visit: 02/16/2022 08:18:00 Current Date: 02/19/2022 14:40 Account: [id number] Inpatient Adult Discharge Instructions We would like to thank you for allowing us to assist you with your healthcare needs. The following includes patient education materials and information regarding your injury/illness. Our entire staffstrives to provide an excellent experience for our patients and their families. PLEASE ENSURE YOU FOLLOW-UP PER THE INSTRUCTIONS BELOW! ?? YOUR OPINION IS IMPORTANT TO US! Please complete the survey you may receive by mail or email. Your feedback will be used to make improvements to the healthcare experiences of our patients and their families. Surveys are administered by [employer] ?? If further treatment with your primary care physician or another doctor is recommended, it is important for you to keep the appointment. Call your primary care physician or return to the Emergency Department immediately if your condition worsens, fails to improve, or new symptoms develop. If you need to find a doctor, you can call [facility] for a referral at [phone] or toll free at [phone] or log in to [email or web address].. ?? You can view and manage your care through the patient portal or by using a health care ashley of your choosing. [employer] is a website that allows you to securely view your medical information including your hospital discharge summary, office visit summaries, medications and follow-up visits. You can also request appointments, renew medications, and request access to your medical information using a health care ashley of your choosing, or just ask a question. You can enroll at [email or web address] or register during your next office visit. You have been discharged from [facility], Patient Care Unit: WIN2. If you have any questions regarding these instructions after you leave, please call us and we will be happy to assist you. [facility] Your Care Team Attending Physician Marii FELIX, Teresa Rouse Consulting Providers Marii FELIX, Teresa Rouse Discharging Providers Pavel Berman DO Reason for Admission Repeat Your Diagnosis History of delivery Gestational thrombocytopenia Anemia in History of depression Unwanted fertility care following delivery Tests Performed Below is a partial list of the tests performed during your hospitalization. You may have had other tests and procedures not included in this list. Please discuss all test results with your provider. CBC Creatinine Primary Care Provider Not on Staff, PCP Advance Directive Health Care Proxy on File No No qualifying data available. Discharge Vitals Temperature: 98 DegF Height: 173 cm Pulse Rate: 64 bpm Weight: 118.5 kg Respiratory Rate: 18 br/min Body Mass Index:??39.59 kg/m2??Critical Respiratory Rate: 18 br/min Body surface area: 2.39 Systolic Blood Pressure: 113 mm Hg ?? Diastolic Blood Pressure: 56 mm Hg ?? Oxygen Saturation: 97 % ?? Studies Pending All tests and labs ordered during this hospital stay have been completed unless listed below. Please discuss all pending results with your provider listed above in these instructions. ?? COVID-19 (2019 Novel Coronavirus) PCR Pathology Tissue Request () Type and Screen What to do next Instructions From Your Doctor Discharge: home, Call your the office with any concerns including:?? Heavy vaginal bleeding?? Fever of 100.4 or greater Foul-smelling vaginal discharge Difficulty or burning with urination?? Nausea and vomiting with inability to tolerate food,?? Pain not controlled by your prescribed medications Shortness of breath or chest pain. Swelling of the extremities. ?? General Instructions: - Avoid lifting anything 15 lbs or greater until cleared by doctor. - Stairs are OK but avoid multiple trips/ skipping steps and go slowly. - Walk as often as you are able. - Do not put anything in the vagina. No intercourse, tampons, or douching - Continue your stool softeners (examples: colace/docusate, senna, miralax) - Shower as usual. Avoid tubs/ soaking/ pools. Discharge Orders You Need to Schedule the Following Appointments Follow Up with??[facility] When??In 6 weeks Where: [address] [place], [place] [address] [address]- Discharge Medications NELSY BREWSTER :1990 Visit Date:02/16/2022 Medications: Please continue your medications until treatment is completed or stopped by your provider. Medications not listed below should be discontinued. Discuss any questions related to medications with your provider. What How Much When Instructions Next Dose New Acetaminophen (acetaminophen 325 mg oral tablet) 650 Milligram Oral Every 4 hours (1-3), may give 325mg per patient preference and re-dose with 325mg within 4 hours if needed. ?? Patient should only receive a total of 650mg of Acetaminophen every 4 hours. ?? Pickup at [facility]/pharmacy #[id number] today 7pm New Docusate (docusate sodium 100 mg oral capsule) 1 capsule Oral Twice a day Pickup at [facility]/pharmacy #[id number] today 9pm New Ibuprofen (ibuprofen 800 mg oral tablet) 1 tab(s) Oral Every 8 hours (4-6), may give 400mg per patient preference and re-dose with 400mg within 8 hours if needed. ?? Patient should only receive a total of 800mg of Ibuprofen every 8 hours. ?? Pickup at [facility]/pharmacy #[id number] today 11pm New Oxycodone (oxyCODONE 5 mg oral tablet) 1 tab(s) Oral Every 3 hours as needed for Pain , Severe (7-10) ?? Pickup at [facility]/pharmacy #[id number] today 7pm Pharmacy Information [facility]/pharmacy #[id number]: [address], [place] [id number] [phone] ?? What How Much When Comments Stop Taking Doxylamine (Unisom 25 mg oral tablet) 1 tab(s) Oral Daily at Bedtime Test Results Below is a partial list of the most recent Laboratory test results done prior to this discharge. You may have had other tests and procedures not included in this list. Please discuss all test resultswith your provider. Antibody Screen - Negative (02/16/2022) Blood Type - O Positive (02/16/2022) CBC (02/16/2022) ???WBC - 6.6 k/mm3???RBC - 3.58 m/mm3???Hgb - 10.1 Gm/dL???Hct - 31.8 %???MCV - 88.8 femtoliters???MCH - 28.2 pg???MCHC - 31.8 g/dL???Platelet Count - 133 k/mm3???RDW-SD - 45.2 femtoliters???MPV - 13.5 femtoliters???Nucleated RBC (Automated) - 0.0 #/100 WBC'S???Abs. NRBC - 0.0 k/mm3 Creatinine (02/17/2022) ???Creatinine-Blood - 0.6 mg/dL???Estimated GFR Creatinine - 124 ML/MIN/1.73 M2 Allergies (NKA means No Known Allergies) No Known Medication Allergies Problems Active Problems??(11) +COVID-19 during ?? Anemia?? BMI 38.7, pre- - Obese?? Gestational thrombocytopenia?? History of delivery, currently ?? History of macrosomia in in prior , currently ?? History of depression?? History of varicella as a child?? Obese class II? contractions?? Education Materials Below is the list of Educational Leaflet Providered with your Discharge Instructions. OB [facility]- Discharge Instructions?? Discharge Instructions for Section ()?? Pain After Childbirth?? Valuables and Belongings I fully understand and agree that [facility] accepts no responsibility for all my personal property including clothing, toilet articles, radios, jewelry, dentures, hearing aids, rings, money, or any other property that is in my possession or is brought to me after admission. I understand certain valuables may be placed in a hospital safe for a short period of time. I understand that the hospital is not liable for loss or damage due to accident, fire, or other natural occurrence while said property is in the safe. I accept full responsibility for any personal property that I keep with me, and will not hold the hospital responsible in case of loss or disappearance. I acknowledge that i have been encouraged to send valuables and belongings home. ?? No Valuables/Belongings: No valuables/belongings present Date for Pt to Sign Valuables/Belongings: 02/16/22 09:01:00 ?? Other Discharge Information ? Pulmonary Rehab Status?? Pulmonary Rehab Discharge Status?? Respiratory Rate: 18 br/min Respiratory Rate: 18 br/min ? Common Emergency Awareness Tips IS IT A STROKE? Act FAST and Check for these signs: FACE Does the face look uneven? ARM Does one arm drift down? SPEECH Does their speech sound strange? TIME Call at any sign of stroke ?? Heart Attack Signs Chest discomfort: Most heart attacks involve discomfort in the center of the chest and lasts more than a few minutes, or goes away and comes back. It can feel like uncomfortable pressure, squeezing, fullness or pain. Discomfort in upper body: Symptoms can include pain or discomfort in one or both arms, back, neck, jaw or stomach. Shortness of breath: With or without discomfort. Other signs: Breaking out in a cold sweat, nausea, or lightheaded. Remember, MINUTES DO MATTER. If you experience any of these heart attack warning signs, call to get immediate medical attention! ?? Smoking can increase your chances of developing chronic health problems and can cause harmful effects to other family members in your house. If you smoke, you are strongly encouraged to quit. Please call [facility] at [phone] or [phone] ([phone]) or log in to [email or web address] for referrals to smoking cessation programs. ?? The National Suicide Prevention Hotline is available 24/10 if you or someone you know needs to find a reason to keep living. By calling 1-016-010-[facility] (6356) you'll be connected to a skilled, trained counselor at a crisis center in your area. INPATIENT DISCHARGE INSTRUCTIONS SIGNATURE PAGE NELSY BREWSTER [facility] [place]:[id number] Location:[facility] Registration Date and Time:02/16/2022 08:18 EST Primary Care Physician: Not on Staff, PCP NELSY HAMPTON, have received the above patient education materials/instructions and have verbalized understanding. If ambulance or transport services are being used I further acknowledge being given a choice of service. ?? If you need to contact me, please call me at this number: . Patient/Optical Coating Technician Name: Patient/Optical Coating Technician Signature: Relationship to Patient: Witness Name/Signature: Date: * Rashmi Mendiola RN: PERFORM Event Display: Patient Education Leaflets Authored Date: [id number] [facility] [place]- Discharge Instructions ?? 209 Discharge Care Instructions for the New Mom and Baby Please take a few moments to read through these helpful instructions before you leave the hospital.?? Your nurse will be glad to answer any questions you may have.?? You can also find this and more information throughout the purple Becoming a Family booklet, [facility]???s New Beginnings Guide and the Consultation Services Guide given to you after the of your baby.?? You may also phone our nurses stations if you have further questions.?? [facility]:?? First Floor ([phone]), Second Floor ([phone]).?? Please call your provider if you have any questions or concerns?? before your next appointment. For ongoing support please ???Like?? us on our Facebook page ???[facility]???s New Beginnings?? andsign up for our email newsletter at [email or web address].?? News and information will besent to you until your baby???s third birthday. Instructions for the New Mother Activity: For the next 2 weeks at home ??? no heavy lifting, avoid unnecessary stair climbing, and no driving(especially if you are taking medicine that may make you sleepy or feel that you are sleep deprived).?? For the next 4-6 weeks - no tampons, no douches, no sexual intercourse. Use your sebastián bottle to rinse your perineum until your vaginal flow stops.?? If you have stitches in your bottom, they generally dissolve within 7-10 days.?? Apply Tucks/witch navarro pads until your soreness subsides.?? Use your bathroom at home every 3 to 4 hours, rinse, and change your pads. Warm showers feel great on achy muscles, sore backs and sore bottoms. Exercise: Walking is the best form of exercise.?? Wait until your follow up appointment with your provider in4-6 weeks before engaging in more strenuous activity. Diet: Drink plenty of fluids to avoid constipation and to help support your recovery. Eat plenty of iron rich foods such as red meat, iron fortified cereals like Total and Cream of Wheat, raisins, prunes, greens and spinach.?? These will help to build your blood count back up as all women lose some blood after delivery.?? Also add foods rich in Vitamin C such as strawberries, oranges, papayas, kale and zaidi peppers. Continue to take your vitamins if you are .?? If you are not follow the instructions of your provider.?? If you were prescribed iron supplements such as ferrous sulfate, it is important to continue these until your doctor or green hide inspector tells you to stop. Breast Care for Nursing Mothers: Wear a comfortable fitting, supportive nursing bra.?? An underwire bra is not recommended. Express drops of breast milk and rub over your nipples and areola (brown area) before and after each feeding to protect and heal sensitive skin and then air dry your nipples.?? If you are experiencing any soreness, you may purchase nipple cream such as TenderCare or Lansinoh.?? Use it in the following manner:?? finish your feeding or pumping session, self-express colostrum onto your nipple and air dry, apply the nipple cream to the nipple and areola.?? Use only small amounts for best results. If you are having difficulty getting the baby to latch onto the breast due to swelling of the areola, try applying pressure with your fingers for a couple of minutes above and below your nipple and walk your fingers outward softening the area and pushing the swelling away.?? This technique is knownas reverse pressure softening.?? For demonstrations of this and other techniques such as the [place] Hand Expression technique, please refer to the resources section of the Consultation Services Guide that you received from services. When your milk first comes in, usually within 3 to 5 days after delivery, you may experience engorgement.?? Your breasts may become swollen and very tender.?? Cold compresses work great to help with discomfort and reduce swelling. It will get better in a couple of days.?? Continue to nurse your baby frequently.?? Call [facility]???s Consultation Service at [phone], press 1 to schedule an outpatient appointment or press 3 and a nissan sales consultant will return your call that day or the next if you call after 3pm. Breast Care for Bottle Feeding Mothers: Engorgement may occur within the first week after delivery.?? Your breasts may become hard and verytender.?? A cool compress of cleaned raw green cabbage leaves applied to the breast and changed as leaves wilt has been proven helpful for many women.?? Ice packs or frozen bags of peas also work nicely to ease the discomfort.?? The soreness will only last a couple of days. Keep your back turned to the water while showering to decrease breast stimulation. Wear a snug fitting bra such as a sports bra. Incision Care Following Tubal or Section: You may shower as directed by your doctor or green hide inspector.?? Pat your incision dry with a clean towel.??You will not need a bandage after the first day. Call your doctor or green hide inspector with any signs of infection such as a hard, hot swollen tender incision, especially if the skin around the incision looks pink or red.?? Yellow drainage with an odor may also be a sign of infection to report. Call your doctor or green hide inspector if the incision begins to separate. If you have steri-strips on the incision, they will likely fall off in the first week.?? If they have not fallen off by 10 days after delivery, you may remove them. Control: Your doctor or green hide inspector will discuss control methods with you when you are discharged from thespital or at your checkup.?? Be sure to let your provider know if you are . You had a Paragard IUD placed on .?? This control method is effective for 10 years. You had a Liletta placed on .?? This control method is effective for up to 5 years. You had a Nexplanon placed on .?? This control method is effective for up to 3 years. You received a Depo Provera injection on .?? This control method is effective as longas you repeat it every 3 months.?? Schedule your next dose before . You have a prescription for control pills .?? It is important to take a pill everyday at around the same time of day for effective control protection.?? Pain Management: Cramping after is common and increases in strength with each baby you have.?? If you experience painful cramps, and have no allergies to acetaminophen (Tylenol) or ibuprofen (Motrin), you may continue to take these medications as you did in the hospital.?? Ibuprofen is also helpful with back aches following epidurals, perineal pain following a vaginal delivery, and moderate incisional pain after a section or a tubal ligation.?? If you experience gas distention, especially after surgery, you may take an over the counter medication called simethicone.?? Take these chewable tablets 4 times a day as needed and directed on the package.?? Keep moving.?? Walking or rocking in a chair, will help to move the gas along.?? Corrine tea made with heated corrine che (instead of water) and a tea bag, stirred to dissolve carbonation (bubbles) is a helpful drink to soothe a gassy stomach. Warning Signs of a Problem to Notify Your Doctor or Sports Photographer of: Heavy vaginal bleeding ??? which is soaking a pad every hour with bright red blood. Passing blood clots the size of an egg or larger. An incision that is not healing. A temperature greater than or equal to 100.4 especially if accompanied by any of the following symptoms ??? painful, frequent urination; extreme back or flank pain; lower belly pain with a foul smellto your vaginal flow; a red hard hot area on your breast.?? Severe headache that does not go away after taking acetaminophen or ibuprofen.?? A headache that changes your vision, including seeing spots or blurring. Right sided upper abdominal pain along the rib cage area. Pain in your legs that is warm and tender to the touch. depression signs may include ??? loss of interest in your baby, weepiness, difficulty focusing, weight loss with no appetite, exhaustion, feeling overwhelmed or anxious, feelings of despair, or thoughts of harming yourself or your baby.?? These symptoms are important and should be discussed with your doctor or green hide inspector. depression may develop over a period of time and needs prompt medical attention.?? Do not suffer in silence.?? In both the Becoming a Family booklet and the[facility] Guide there is a screening tool used to identify women at risk, called the [place] Scale which you have taken in the office prior to delivery and again during your hospital s denny.?? Three to four weeks after your delivery, and before your check with your provider, take this test and share your results with your provider.?? Be sure to mention any score of 10 or more.?? Many women, and even some partners, may experience the ???baby blues?? .?? This is a state of feeling overwhelmed and weepy.?? Discomfort from childbirth, hormonal changes, exhaustion, changes to your body and lifestyle are a few of the things that contribute to the highs and lows new parents go through.?? Don???t be afraid to ask your partner or family and friends for some help at home so you can get some rest and a few minutes to yourself.?? The blues will quickly pass. Personal Safety: Every person has the right to feel safe at home and live free from physical or emotional harm.?? Ifyou have suffered mental or physical abuse at home, you are not alone.?? There is help.?? Please call [facility] or the [place] Program at [phone]. CARE Bathing: Give your baby a sponge bath until the cord falls off in about 1-3 weeks.?? It is not necessary to bathe your baby every day, usually every few days is sufficient. ??Keep the cord area dry.?? Some baby girls will have a small bloody vaginal discharge. No need to worry as this is normal. It is not necessary to use lotions on the baby???s skin.?? Powders and oils are not recommended.?? Babies often get rash on their skin which comes and goes quickly and does not require any special care.?? Diaper rash can be treated with a zinc oxide preparation such as Desitin or Balmex diaper cream. Circumcision Care: Your nurse will teach you how to care for your baby???s circumcision depending on the type of circumcision your doctor or green hide inspector performed.?? Most circumcisions require A&& ointment for about 4-5 days.?? Be generous with the amount of A&& used as this will prevent the diaper from sticking when you go to change it. If a plastibell circumcision was done, the plastic ring around the penis will fall off in a week orso. Diapers: After the 1st??few days, the baby will start wetting more often.?? A breast fed baby will wet about6-8 times a day once mom???s milk comes in ??? usually day 4 or 5.?? This is a good sign that the baby is getting plenty to eat.?? You may notice an orangey-pink stain in the diaper which is normal for the first few days. The baby???s first bowel movements are sticky, black and tarry.?? As the baby starts to feed more often over the next couple of days, the stool will change to a seedy yellowish green color and eventually a loose mustard like stool for a breast fed baby and a more formed yellow stool for a bottle fed baby. your Baby: ??Congratulations on deciding to breastfeed your baby! You are providing your baby with the most nourishing food source on the planet, your breast milk.?? Cues such as rooting, suckling, licking and fussing may be telling you that your baby is ready to eat ??? and it is time to offer your breasts. The first weeks following the are a time for you and your baby to learn.?? The baby may be sleepy the first day after with 8 to 12 attempts ??? including 2 to 4 good feedings.?? Over the next couple of days the baby will become more wakeful, feed 8 to 12 times a day and have more wet and poopy diapers.?? Cluster feeding, especially during the evening/night time, is normal. ?? Listen for swallowing sounds and watch the baby as they become more relaxed at the breast ??? both good signs that the baby is getting a good amount of milk.?? Refrain from smoking or eating edible marijuana while you are . Even though marijuana is legal in the state of [place],??it is harmful for your baby.??It stays in breast milk for along period of time and THC can be found in the baby's urine for up to 3 weeks. Second hand smoke can also increase the risk??of Sudden Syndrome / SIDS. ?? Nursing is wonderful but many moms and babies have some degree of difficulty with at first. Don???t give up!?? There are many resources available to help you overcome these temporary problems. Your makeup artistry instructor wants to hear from you if you are having difficulties and can offermany helpful suggestions.?? Some offices have consultants on staff. [facility]???s Consultation Service is available 7 days a week, 8am to 3pm at [phone].?? Press 1 to schedule an outpatient appointment.?? Press 3 to leave a message for the health care consultant, a nissan sales consultant will return your call that day or the next if you call after 3pm. Support Groups ??? [facility] offers free gatherings for moms and babies weekly.?? All groups meet at the [facility]???s 2nd??floor, typically in the [facility] Conference Room, Monday???s 1 to 2 pm.?? [employer] is a worldwide organization with local community support, mother to mother support.?? Information can be found at https://www.[facility].org Formula Feeding your Baby: Formula fed babies should eat every 3 to 4 hours.?? Look for cues that your baby is ready ??? such as rooting and sucking, licking and fussing.?? At the baby???s stomach is small and may take 10-15ml of formula.?? Over the next few days the baby will become more wakeful and feed more frequently, gradually increasing the amounts of formula taken at a feeding.?? Your makeup artistry instructor will provideinstructions on how to increase the amount.?? Refer to packaging for formula preparation directions, depending on the type of formula you purchase ??? powder, concentrate or ready to feed. Safety: ALWAYS REMEMBER - BACK TO SLEEP! Babies sleep safest on their backs.?? Every sleep.?? Every time.?? Every nap. Babies need a firm sleep surface with a tight fitting bottom sheet.?? NO loose bedding.?? NO pillows.?? NO bumper pads or rolls.?? NO heavy or fluffy blankets. NO stuffed toys. It is not safe for your baby to sleep in your bed, in a chair, or on a sofa.?? Your baby should notsleep with you or anyone else. Car Seat: Always place your baby in a rear facing car seat in the backseat of the car. Car seat inserts that come with the car seat can be used as they are crash tested with the seat.?? You should not buy additional inserts.?? Dress the baby in a weather appropriate outfit.?? Avoid bulky clothing such as snowsuits or jackets as the baby may squirm in the seat, loosening the shoulder straps and come out of the top of the harness if you need to brake hard or are in an accident.?? Once the baby issecured in the seat you can cover your little one with a blanket if needed.?? If your baby was bornprematurely, follow the directions given to you.?? If you have not already done so, check to make sure your car seat is installed correctly. Check with your local Fire and Police Department to see if they offer car seat inspections at a location close to you. Babies Can Move: ?? Never leave your baby unattended on any surface, raised or flat, or while bathing.?? They can squirm, fall or hurt themselves.?? Always fasten the safety belt when using an infantseat or swing ??? as they may lean forward and fall. Good Handwashing is the number one way you can protect the baby from too?? many germs and prevent infection.?? When family and friends visit ask that they wash their hands before holding your baby.??Also avoid crowds the first month of your baby???s life to protect from colds and flus. Shaking a baby out of frustration can cause severe and lasting damage, even to a baby.?? If you feel you are becoming angry or overwhelmed, place the baby in a safe place and walk away.?? Call a friend or family member.?? If they are not able to offer immediate help call the Parental Stress Hotline at?? , an anonymous 24/10 source of help. Warning Signs to notify your makeup artistry instructor of: Most babies develop a small amount of jaundice (a yellowish skin color) in the face and upper chest, by about 3 days of age.?? If the yellow color extends below the baby???s belly or if the baby is very sleepy and not feeding well, call your makeup artistry instructor. A rectal temperature of 100.4F as it could be a sign of infection. Projectile vomiting that continues with each feeding could indicate reflux or a problem with the formula. Extreme sleepiness or very fussy. Cold symptoms with nasal stuffiness, especially if the baby is having difficulty feeding. Constipation with hard stools. Blue or dusky color, call 911. If Your Baby Needs to Remain in the Hospital: Please leave your baby???s ID bracelets on if your baby needs to remain in the hospital after you are discharged home. The phone number to NICU is [phone]. The phone number to [facility] is [phone]. The phone number to [facility] is [phone]. moms should pump every 2-3 hours or 8-12 times in 24 hours.?? If unable to place the baby to breast, if you are having difficulty getting the baby to latch on, or if the baby remains inthe hospital after you are discharged ??? bring the pumped milk to the hospital, labeled with name,date and time.?? Carry it in a small cooler or diaper bag with an ice pack and bring it the next time you visit your baby.?? Consultation Services is available if you need to rent or purchase a pump or products.?? Call and leave a message at [phone] ??? press 3 and a nissan sales consultant will return your call that day or the next if you call after 3pm. ? * Alka Weber MD: PERFORM Event Display: Patient Education Leaflets Authored Date: [id number] Multiple Documents ?? [id number] Pain After Childbirth After giving , your body needs time to recover. You may have different kinds of pain in your body that need extra care. Your breasts may hurt and your uterus may cramp. If you had a , your belly (abdomen) will be sore. The area between your vagina and anus (perineum) may hurt. Understanding how to manage pain after childbirth will help you care for your baby and yourself during thistime. Breast pain You may have swollen breasts and sore nipples for a time after childbirth. You can help ease swelling by often, and putting cool packs on your breasts. You may have nipple pain from . Dabbing a small amount of breastmilk on the nipple or using a breast shield can help with this problem. Cream or ointment on the nipples doesn???t always help. But if you use any kind of cream or ointment on your nipples, make sure to wipe it off before . Your healthcare provider may also advise a medicine such as ibuprofen. If you???re having ongoing nipple pain, talk with your healthcare team. They can help you tell if your baby is latching on normally, and if your breast pump fits your breasts well. ?? Uterus pain Cramping pain in your womb after childbirth is also known as afterpains. It???s more common in women who have given before. It often happens during in the first few days after . A heating pad on your belly may help ease pain. Taking ibuprofen or naproxen can also help reduce pain. ?? Perineal pain The perineum is the area between the vagina and the anus. It can be bruised and sore after childbirth. You may have a tear or cut in the area. You may have pain for days or weeks. Putting an ice packor cool pack on the area in the first 1 to 3 days may help reduce swelling. Do this for 10 to 20 minutes several times a day. Or sit in a shallow bath of cold or iced water several times a day. Pain m edicine such as ibuprofen or acetaminophen can help manage this pain. If you have stitches in the area, gently rinse them with warm water each time you use the toilet. Don't wipe the stitches with toilet paper. If you have constipation, it can make perineal pain worse. Talk with your healthcare team if you need laxatives to help keep your stool soft. ?? Hemorrhoids These are enlarged veins in the rectum and anus. They can itch and hurt. They can happen from the pushing during the second stage of labor. You can treat these with hemorrhoid medicines such as cream, ointment, or astringent wipes that have witch navarro. ?? Types of medicines Pain medicine you may be given after childbirth include: ??? A nonsteroidal anti-inflammatory drug (NSAID) such as ibuprofen, naproxen, or ketorolac ??? Aspirin ??? Acetaminophen ??? Dexamethasone (a steroid) If your pain is not helped by these medicines, your healthcare provider may advise stronger ones called opioids. Opioid medicine may be given through an IV, injection, or by mouth. Tell your healthcare team if you have had any problems with opioid medicines in the past, such as opioid use disorder.Opioid medicines can also make you sleepy. This can make it harder to care for yourself and your baby. The medicines can also cause constipation. This can make perineal pain worse. And it can affect your baby if you are . Talk with your team about the risks and benefits if you need opioids. Taking medicines while Some medicines are not advised to take if you are . The effects of opioid medicines onyour baby vary by dose. Talk with your healthcare team about the risks and benefits of any medicineyou may take. After you leave the hospital or birthing center, you may have pain medicines to take at home. Your healthcare team will talk with you about the safest doses and timing of medicine if you ???re . They will also tell you how to watch your baby for signs of opioid effects. ?? When to call your healthcare provider Call your healthcare provider if you have any of the following: ??? Fever of 100.4??F (38??C) or higher, or as directed by your provider ??? Redness, swelling, or fluid leaking from your incision that gets worse ??? Pain that gets worse ??? Symptoms that don???t get better, or get worse ??? Severe headache ??? Other new symptoms ?? Last Reviewed Date: 2019 ?? [id number] [employer]. All rights reserved. This information is not intended as a substitute for professional medical care. Always follow your healthcare professional's instructions. ?? * Alka Weber MD: PERFORM Event Display: Patient Education Leaflets Authored Date: [id number] Multiple Documents ?? [id number] Discharge Instructions for Section () You had a section, also called a . During the , your baby was delivered through an incision in your stomach and uterus. Full recovery after a can take time. It???s important to take care of yourself ??? for your own sake and because your new baby needs you. Hereare some guidelines to follow at home. Incision care Here's how to take care of your incision: ??? Shower as needed. Pat your incision dry. ??? Watch your incision for signs of infection, such as??more redness or drainage. ??? Hold a pillow against theincision when you laugh or cough and when you get up from a lying or sitting position. ??? Remember, it can take as long as?? 6??weeks for??your incision to heal. ?? Activity Here are some suggestions: ??? Don???t try to take care of anyone other than your baby and yourself. ??? Remember, the more active you are, the more likely you are to have an increase in your bleeding. ??? Get lots of rest. Take naps in the afternoon. ??? Increase your activities bit by bit. ??? Plan your activities so that you don???t have to go up or down stairs more than needed. ??? Do postsurgical deep breathing and coughing exercises. Ask your??healthcare provider for instructions. ??? Don???t lift anything heavier than your baby until your??healthcare provider tells you it???s OK. ??? Don???t drive until your??healthcare provider says it???s OK. ??? Don???t have sex until after you???ve had a checkup with your??healthcare provider and??you have decided on a control method. ???Let others do things for??you. Don't hesitate to ask for help. ?? Follow-up Make a follow-up appointment as directed by our staff. ?? When to call your healthcare provider Call your healthcare provider right away if you have any of these: ??? Fever of?? 100.4?? F??( 38??C) or higher ??? Redness, pain, or drainage at your incision site ??? Bleeding that requires a new sanitary pad every hour. Heavy vaginal bleeding may be a sign of hemorrhage. It needs medical care right away. ??? Severe belly pain ??? Pain or urgency with urination ??? Foul odor from vaginal discharge ??? Trouble urinating or emptying your bladder ??? No bowel movement within 1 week after the of your baby ??? Swollen, red, painful area in the leg ??? Appearance of rash or hives??? Sore, red, painful area on the breasts that??may come with??flu-like symptoms ??? Feelings of an xiety, panic, or depression ?? Last Reviewed Date: 2020 ?? [id number] [employer]. All rights reserved. This information is not intended as a substitute for professional medical care. Always follow your healthcare professional's instructions. ?? * Christine Hsu: PERFORM Event Display: Care Team Progress Note Authored Date: [id number] Patient: ??NELSY BREWSTER ? Age:??31 Years?Sex:??Female?:??1990?? Subjective cart rounds day??1 assessment for assistance Patient??previous experience 1-2 months Feeding sheet adequately filled out Patient?? obtained personal pump by self pay Assessment/Plan observed feeding- baby latched in cradle- good nutritive sucks noted with no pain. Baby has been feeding well- Patient plans to breast feed longer with this baby gave patient MM info and script to order a ins pump if desired Basic education discussed with mother/family including:? Positioning infant for optimal feeding Asymmetric latch technique Frequent breast stimulation for initiation and maintenance of milk supply Breast compressions during a feeding to offer stimulation to a sleepy baby Engorgement prevention and management (page 12 guide) How to know your baby is getting enough (page 14 guide) Trouble shooting guide (pg 26-27 guide) Reputable websites (pg 28 guide) support Zoom group Wednesdays at 1pm Hand expression When to use a breast pump Consultation reference guide given to mother with contact information for services and ongoing support as needed.?? OB Summary : 3 Parity: 1 . Baby A - Weight: 4.204 kg Baby A - Date, Time of : 02/16/22 17:40:00 Baby A - Gender: Female Baby A - Complications: None EGA at Documented Date, Time: 39W 1D Weight at Delivery Baby A - Delivery Type: , low transverse Delivery Complications: None OB History History?(1,0,1,1)? # 1 ?Baby 1 ?Outcome Date:??2012 ?Outcome or Result:??Spontaneous ?Gest Age:??Unknown ? Outcome:? Sex:??-- ?? # 2 ?Baby 1 ?Outcome Date:??03/02/2014?Outcome or Result:?Gest Age:??38 weeks ? Outcome:??Live ? Sex:??Male?Wt:?4536 g ? Complications:??Macrosomia ?Hospital:??[place] ?Comment:??Was told baby was too big so c/section done. No IOL attempted. Active Problem List Active Problem List +COVID-19 during : (Medical) Symptoms began 08/19/21. Anemia: (Medical) BMI 38.7, pre- - Obese: (Medical) Gestational thrombocytopenia: (Medical) History of delivery, currently : (Medical) History of macrosomia in infant in prior , currently : (Medical) History of depression: (Medical) Reports some situational depression in past and some mild ppd after her first son. ??It was mild and resolved on it's own. History of varicella as a child: (Medical) Obese class II: (Medical) : (Obstetric) (05/19/21) contractions: (Medical) Home Medications Doxylamine: 25 mg = 1 tablet, By Mouth, Daily at bedtime Medications Medications (12) Active SCHEDULED: (3) Acetaminophen 325 mg Tablet (Acetaminophen Tablet) ??650 mg, By Mouth, Every 4 hours Docusate Sodium 100 mg Capsule (Docusate Sodium Capsule) ??100 mg 1 capsule, By Mouth, 2 times a day Ibuprofen 800 mg Tablet (Ibuprofen Tablet) ??800 mg, By Mouth, Every 8 hours CONTINUOUS: (0) PRN: (9) diphenhydrAMINE 25 mg Tablet (DiphenhydrAMINE Tablet) ??25 mg, By Mouth, Every 4 hours FENTanyl 50 mcg/mL Inj (2 mL) (FENTanyl Inj) ??25 mcg 0.5 mL, IV Push, Every 5 minutes Metoclopramide 5 mg/mL Inj (2 mL) (Metoclopramide Inj) ??10 mg, IV Push, Every 6 hours nalOXONE ??400mcg/mL Inj (nalOXONE Inj) ??0.1 mg 0.25 mL, IV Push Slowly, Every 15 minutes Ondansetron 2mg/mL Inj (2mL Vial) (Ondansetron Inj) ??4 mg, IV Push, Once OxyCODONE 5 mg IR Tablet (OxyCODONE IR Tablet) ??5 mg, By Mouth, Every 3 hours OxyCODONE 5 mg IR Tablet (OxyCODONE IR Tablet) ??10 mg, By Mouth, Every 3 hours OxyCODONE 5 mg IR Tablet (OxyCODONE IR Tablet) ??5 mg, By Mouth, Every 3 hours Simethicone 80 mg Chewable Tablet (Simethicone Tablet) ??80 mg, Chew, 3 times a day Patient Care team information Care Team Personnel Name: Corina Florez RN Position: S RN Member Role: Primary Care Nurse Name: Not on Staff, PCP Position: [facility] Physician (General Medicine) Member Role: PCP Name: Rashmi Mendiola RN Position: [facility] OB RN Member Role: Patient Care Provider Name: Adeel Phelan RN Position: [facility] OB RN Member Role: Patient Care Provider Care Team Related Persons Name: ESVIN MANSFIELD Address: home [address] [place] [address] Name: NELSY BREWSTER GIRL Address: [address] Address: [address] [address]
[2022-12-18 14:40] LABS: Appearance Urine Clear; Color Urine Yellow; Glucose Urine UA Negative (Negative); Leukocyte Esterase Urine Negative (Negative); Nitrite Urine Negative (Negative); PH 6.5 (5.0-9.0); UMIC TRIGGER UACC YES; Urine Blood Large (3+) (Negative); Urine Ketones Negative (Negative); Urine Protein Negative (Neg-Trace)
[2022-12-18 14:43] LABS: UPreg QC Valid YES; Urine Pregnancy NEGATIVE (NEGATIVE)
[2022-12-18 14:45] LABS: Bacteria Urine None Seen (None Seen); Hyaline Casts Urine 0-2 /LPF (0-2); RBC Urine >20 /HPF (0-2); Squamous Epithelial Cell Urine 0-2 /HPF (0-2); WBC Urine 0-5 /HPF (0-5)
[2022-12-18 14:55] VITALS: BP 132/88; PULSE 72; TEMP 36.8; O2SAT 97
[2022-12-18] MEDS: Cyclobenzaprine HCl 10 MG TABLET PO (15:13)
[2022-12-18] MEDS: Lidocaine 4 % Patch ADH..PATCH 1 PATCH TRANSDERMA (15:15)
== END 2022-12-18 17:50 | disposition home or self-care (01) ==
PROVIDERS: Physician Assistant; Emergency Provider Student in an Organized Health Care Education/Training Program; PCP Internal Medicine
DX: M54.16 Radiculopathy, lumbar region (principal); M54.50 Low back pain, unspecified; Z79.899 Other long term (current) drug therapy
CPT/HCPCS: 72100; 81001; 81025; 99283; 99284

== ENCOUNTER 2023-01-13 12:45 | Outpatient (REF) | payer MEDICAID, SELFPAY ==
--- NOTE | 2023-01-13 12:49 | EMG_ITS ---
Chief complaint: Hand numbness Reason for referral: Evaluate for Carpal Tunnel Syndrome Procedure done: Bilateral upper extremities NCS, left upper extremity EMG Precautions and/or limitations: None The limb temperature was monitored continuously and remained between 32-36 degrees C during the performance of the NCS. Nerve Conduction Studies Anti Sensory Summary Table ?Stim Site NR Onset (ms) Norm Onset (ms) Peak (ms) Norm Peak (ms) O-P Amp (?V) Norm O-P Amp Site1 Site2 Delta-0 (ms) Dist (cm) Kurtis (m/s) Norm Kurtis (m/s) Right Median Anti Sensory (2nd Digit) Wrist ? 2.6 3.0 <3.6 35.7 >10 Wrist 2nd Digit 2.6 14.0 54 Right Ulnar Anti Sensory (5th Digit) Wrist ? 2.6 3.2 <3.7 30.1 >15.0 Wrist 5th Digit 2.6 14.0 54 Motor Summary Table ?Stim Site NR Onset (ms) Norm Onset (ms) O-P Amp (mV) Norm O-P Amp iAmp (mV) Amp (1st) (%) Site1 Site2 Delta-0 (ms) Dist (cm) Kurtis (m/s) Norm Kurtis (m/s) Left Median Motor (Abd Poll Brev) Wrist ? 3.4 <3.9 9.5 >4.5 11.9 100.0 Elbow Wrist 3.2 20.0 63 >45 Elbow ? 6.6 9.3 12.1 97.9 Right Median Motor (Abd Poll Brev) Wrist ? 3.0 <3.9 14.3 >4.5 16.8 100.0 Elbow Wrist 3.5 20.0 57 >45 Elbow ? 6.5 14.0 16.5 97.9 Left Ulnar Motor (Abd Dig Minimi) Wrist ? 2.7 <3.0 8.2 >5 9.4 100.0 B Elbow Wrist 3.0 19.0 63 >45 B Elbow ? 5.7 7.5 8.6 91.5 A Elbow B Elbow 1.6 10.0 63 >45 A Elbow ? 7.3 8.4 10.0 102.4 Right Ulnar Motor (Abd Dig Minimi) Wrist ? 2.7 <3.0 7.4 >5 8.6 100.0 B Elbow Wrist 2.8 18.0 64 >45 B Elbow ? 5.5 6.8 8.0 91.9 A Elbow B Elbow 1.3 10.0 77 >45 A Elbow ? 6.8 6.6 7.9 89.2 Comparison Summary Table ?Stim Site NR Peak (ms) Norm Peak (ms) P-T Amp (?V) Site1 Site2 Delta-P (ms) Norm Delta (ms) Left Median/Radial Dig I Comparison (Digit 1 - 10cm) Median ? 2.6 <2.9 82.7 Median Radial 0.1 Radial ? 2.5 <2.8 25.7 Right Median/Radial Dig I Comparison (Digit 1 - 10cm) Median ? 2.5 <2.9 140.9 Median Radial 0.0 Radial ? 2.5 <2.8 19.6 EMG ?Side Muscle Nerve Root Ins Act Fibs Psw Amp Dur Poly Recrt Int Pat Comment Left 1stDorInt Ulnar C8-T1 Nml Nml Nml Nml Nml 0 Nml Complete Left FlexCarRad Median C6-7 Nml Nml Nml Nml Nml 0 Nml Complete Left Biceps Musculocut C5-6 Nml Nml Nml Nml Nml 0 Nml Complete Left Triceps Radial C6-7-8 Nml Nml Nml Nml Nml 0 Nml Complete Left Deltoid Axillary C5-6 Nml Nml Nml Nml Nml 0 Nml Complete FINDINGS: All motor and sensory nerves tested showed normal latencies, amplitudes and conduction velocities. Concentric needle EMG was performed in selected muscles of the left upper extremity. Study did not reveal signs of electric abnormalities as shown in the table below. IMPRESSION: 1. This is a normal study. 2. There is no electrodiagnostic evidence for median neuropathy, ulnar neuropathy, brachial plexopathy, or cervical radiculopathy. Thank you for your kind referral. Emely Jensen MD, [employer] Board Certified, [place] [employer] and Rehabilitation (ABPMR) Board Certified, [place] [employer] Electrodiagnostic Medicine (ABEM) [place] [id number] [facility]
== END 2023-01-13 12:46 | disposition home or self-care (01) ==
LOC: HO.NEURO 12:45
PROVIDERS: PCP Internal Medicine; Visit Provider Physical Medicine & Rehabilitation
DX: R20.0 Anesthesia of skin (principal)
CPT/HCPCS: 95886; 95911

== ENCOUNTER → 2023-01-13 12:49 | Outpatient (BNV) | payer MEDICAID, SELFPAY | PROVIDERS: PCP Internal Medicine; Visit Provider Physical Medicine & Rehabilitation | DX: R20.2 Paresthesia of skin (principal) | CPT/HCPCS: 95886; 95911 ==

== ENCOUNTER 2023-07-27 09:22 | Outpatient (REF) | payer MEDICAID, SELFPAY ==
[2023-07-27 12:07] LABS: Syphilis Screen Nonreactive (Nonreactive)
[2023-07-27 12:10] LABS: HIV AB/AG Nonreactive (Nonreactive); HIV Num 1 0.05 S/CO (0.00-0.99); ~HepC Num1 0.12 S/CO (0.00-0.79); ~Hepatitis C Antibody Nonreactive (Nonreactive)
[2023-07-28 21:09] LABS: C. trachomatis RNA TMA NOT DETECTED (NOT DETECTED); N. gonorrhoeae RNA TMA NOT DETECTED (NOT DETECTED)
== END 2023-07-27 09:23 | disposition home or self-care (01) ==
LOC: HO.HHCL 09:22
PROVIDERS: Visit Provider Pediatrics
DX: Z11.4 Encounter for screening for human immunodeficiency virus [HIV] (principal); N76.0 Acute vaginitis
CPT/HCPCS: 36415; 81513; 86780; 86803; 87389; 87491; 87591

== ENCOUNTER 2023-08-05 14:48 | Emergency (ER) | payer MEDICAID, SELFPAY ==
[2023-08-05 14:53] VITALS: BP 145/86; PULSE 77; RESP 18; TEMP 36.6; O2SAT 99; BMI 39.5
--- NOTE | 2023-08-05 14:53 | ED_ITS ---
HPI - Female Genitourinary General Chief complaint: Urogenital-Female Stated complaint: Blood in urine Time Seen by Provider: 08/05/23 15:42 Source: patient Mode of arrival: ambulatory Limitations: no limitations History of Present Illness HPI Narrative: Patient is a 33-year-old female who presents to the emergency department for evaluation of hematuria and dysuria. She was seen by her PCP, states that she had a urine test done, and was without infection. She reports second occurrence of hematuria yesterday but none today. She denies vaginal bleeding, denies possibility of . when asked she does admit to having back pain but states that this is chronic and unchanged from her baseline Related Data Previous Rx's ?Medication ?Instructions ?Recorded cyclobenzaprine 10 mg tablet 10 mg PO BEDTIME PRN muscle spasm 12/18/22 #10 tabs lidocaine 5 % topical patch 1 patch topical DAILY #15 ea 12/18/22 (Lidoderm) cefuroxime axetil 250 mg tablet 250 mg PO BID #14 tabs 08/05/23 Allergies Allergy/AdvReac Type Severity Reaction Status Date / Time No Known Allergies Allergy Verified 08/05/23 14:56 [No Known Allergies*] Review of Systems 2 Review of Systems: Yes all other systems are reviewed and are negative PMFSH Past Medical History Attestation statement: The following information was validated with the patient. Source: old records reviewed Medical History No known health problems Physical Exam 2 Vital Signs: Vital Signs: Last Vital Signs Temp 98 F 08/05/23 14:53 Pulse 77 08/05/23 14:53 Resp 18 08/05/23 14:53 BP 145/86 H 08/05/23 14:53 Pulse Ox 99 08/05/23 14:53 O2 Del Method Room Air 08/05/23 14:53 BMI result Body Mass Index 39.5 Appearance: Alert.?Oriented to person, place and time. No acute distress.?Normal affect. Eyes: Pupils equal, round and reactive to light.? ENT: Pharynx normal.?? Neck: Normal inspection.? Neck supple.?? CVS: Heart sounds normal. Normal heart rate and rhythm.? Pulses normal.?? Respiratory: No respiratory distress.? Lung sounds clear to auscultation bilaterally?? Abdomen: Soft and non-tender. Normoactive bowel sounds. No CVA tenderness Skin: Skin warm and dry.? Normal skin color.? ? Extremities: No lower extremity edema.? Neuro: Moves all extremities spontaneously. Sensation intact bilaterally. CN II- XII intact. No focal neuro deficits. Ambulates with normal steady gait. Course Course Course Narrative: This is an RME performed by Ashley Velásquez [employer]EL NAILING MACHINE OPERATOR: Additional HPI, ROS, PE not included below will be deferred to primary provider. Patient is a 33-year-old female who presents to the emergency department for evaluation of hematuria and dysuria. She was seen by her PCP, states that she had a urine test done, and was without infection. She reports second occurrence of hematuria yesterday and reports a large amount. She denies vaginal bleeding. She also reports feeling fatigued, when asked she does admit to having back pain but states that this is chronic Plan: Labs, urinalysis Medical Decision Making Medical Decision Making MDM Narrative: Patient is a 33-year-old female who presents emergency department for evaluation of dysuria and intermittent hematuria as per HPI. Overall she appears well, nontoxic, afebrile. She is without tachycardia. She has no CVA tenderness to suggest pyelonephritis or renal colic. Given her symptoms, serum labs and urinalysis were obtained. HCG is negative, no leukocytosis or anemia. No electrolyte derangement, no DEBORAH. Urinalysis is concerning for urinary tract infection with microscopic hematuria. At this time, suspect hematuria to be secondary to infection, would defer ultrasound or CT imaging for further evaluation of nephrolithiasis at this time. Discussed strict return precautions, course of antibiotics and outpatient follow-up with her primary care provider. All questions were answered. Stable for discharge. Differential Diagnosis Differential Diagnoses: The differential diagnosis associated with the presentation includes (Urinary tract infection, nephrolithiasis, ureteral calculi, ) Admission/Observation Consideration of admission/observation: Escalation of care including admission/observation considered (See narrative above) Lab Data [facility] Lab Attestation statement: I reviewed the patient's lab results. (See narrative above) 08/05/23 15:12 08/05/23 15:12 Labs: Lab Results 08/05/23 Range/Units 15:12 WBC 7.5 (4.8-10.8) X10*3/uL RBC 4.54 (4.20-5.50) X10*6/uL Hgb 13.2 (12.0-16.0) g/dl Hct 39.9 (37.0-47.0) % MCV 87.9 (80.0-98.0) fL MCH 29.1 (27.0-33.0) pg MCHC 33.1 (31.0-35.0) g/dl RDW 13.3 (11.0-16.0) % Plt Count 185 (160-400) X10*3/uL MPV 13.0 H (9.4-12.3) fL Immature Gran % (Auto) 0.1 (0.0-0.4) % Neut % (Auto) 62.3 (45-73) % Lymph % (Auto) 27.1 (20-40) % [place] % (Auto) 6.4 (2-11) % Eos % (Auto) 3.6 (0-4) % Baso % (Auto) 0.5 (0-2) % Lymph # (Auto) 2.0 (1.2-4.9) X10*3/uL [place] # (Auto) 0.5 (0.1-1.2) X10*3/uL Eos # (Auto) 0.3 (0.0-0.4) X10*3/uL Baso # (Auto) 0.0 (0.0-0.2) X10*3/uL Abs Immat Gran (auto) 0.01 (0.00-0.03) X10*3/uL Absolute Neuts (auto) 4.6 (2.0-8.3) x10*3/uL Absolute Nucleated RBC 0.000 (0.0-0.012) X10*3/uL Nucleated RBC % (auto) 0.0 (0.0-0.2) /100WBC Sodium 140 (135-145) mmol/L Potassium 4.0 (3.3-5.1) mmol/L Chloride 107 (96-108) mmol/L Carbon Dioxide 23 (22-29) mmol/L Anion Gap 14 (12-20) BUN 12 (9-16) mg/dL Creatinine 0.79 (0.5-1.4) mg/dL Estim Creat Clear Calc 136.7 Estimated GFR > 60 Random Glucose 88 (60-115) mg/dL Calcium 9.3 (8.4-10.2) mg/dL Urine Color Dark Yellow Urine Appearance Cloudy Urine pH 6.0 (5.0-9.0) Ur Specific [place] >= 1.030 H (1.005-1.025) Urine Protein 100 (2+) H (Neg-Trace) mg/dL Urine Glucose (UA) Negative (Negative) mg/dL Urine Ketones Trace (Negative) mg/dL Urine Blood Moderate (2+) H (Negative) Urine Nitrite Negative (Negative) Ur Leukocyte Esterase Moderate (2+) H (Negative) Urine RBC >20 H (0-2) /HPF Urine WBC 21-50 H (0-5) /HPF Ur Squamous Epith Cells 11-20 (0-2) /HPF Urine Bacteria 1+ (None Seen) Hyaline Casts 0-2 (0-2) /LPF Urine Test NEGATIVE (NEGATIVE) Tests considered The following testing was considered but not selected: See narrative above Prescription Management I considered prescription management with: Antibiotic Discharge Plan Discharge Clinical Impression: Urinary tract infection Patient Disposition: Home, Self-Care Instructions: Urinary Tract Infection in Women (DC) Additional Instructions: Complete the entire course of antibiotics as prescribed. Follow-up with your primary care provider Return back to emergency department any new or worsening symptoms or concerns. Prescriptions: New cefuroxime axetil 250 mg tablet 250 mg PO BID Qty: 14 0RF No Action cyclobenzaprine 10 mg tablet 10 mg PO BEDTIME PRN (Reason: muscle spasm) Qty: 10 0RF lidocaine [Lidoderm] 5 % adhesive patch,medicated 1 patch topical DAILY Qty: 15 0RF Rx Instructions: leave on most painful area for up to 12 hrs Referrals: Sammie Bazan MD [Primary Care Provider] - Print Language: Puerto Rican
[2023-08-05 15:17] LABS: MANUAL DIFF FLAG NO
[2023-08-05 15:20] LABS: Appearance Urine Cloudy; Basophils Percent Auto 0.5 % (0-2); Color Urine Dark Yellow; Eosinophils Absolute Auto 0.3 X10*3/uL (0.0-0.4); Eosinophils Percent Auto 3.6 % (0-4); Glucose Urine UA Negative (Negative); Hematocrit 39.9 % (37.0-47.0); Hemoglobin 13.2 g/dl (12.0-16.0); Imm Gran Abs Auto 0.01 X10*3/uL (0.00-0.03); Imm Gran Pct Auto 0.1 % (0.0-0.4); Leukocyte Esterase Urine Moderate (2+) (Negative); Lymphocytes Percent Auto 27.1 % (20-40); Mean Corpuscular HGB Conc 33.1 g/dl (31.0-35.0); Mean Corpuscular Hemoglobin 29.1 pg (27.0-33.0); Mean Corpuscular Volume 87.9 fL (80.0-98.0); Monocytes Absolute Auto 0.5 X10*3/uL (0.1-1.2); Monocytes Percent Auto 6.4 % (2-11); Neutrophils Absolute Auto 4.6 x10*3/uL (2.0-8.3); Neutrophils Percent Auto 62.3 % (45-73); Nitrite Urine Negative (Negative); Platelet Count 185 X10*3/uL (160-400); Red Blood Count 4.54 X10*6/uL (4.20-5.50); Red Cell Distribution Width 13.3 % (11.0-16.0); UMIC TRIGGER UACC YES; Urine Blood Moderate (2+) (Negative); Urine Ketones Trace mg/dL (Negative); Urine Protein 100 (2+) mg/dL (Neg-Trace); White Blood Count 7.5 X10*3/uL (4.8-10.8)
[2023-08-05 15:23] LABS: UPreg QC Valid YES; Urine Pregnancy NEGATIVE (NEGATIVE)
[2023-08-05 15:25] LABS: Bacteria Urine 1+ (None Seen); Hyaline Casts Urine 0-2 /LPF (0-2); RBC Urine >20 /HPF (0-2); UACC Culture Trigger YES; WBC Urine 21-50 /HPF (0-5)
[2023-08-05 15:29] LABS: Anion Gap 14 (12-20); Blood Urea Nitrogen 12 mg/dL (9-16); Calcium 9.3 mg/dL (8.4-10.2); Carbon Dioxide 23 mmol/L (22-29); Chloride 107 mmol/L (96-108); Creatinine Clr Calc Pharmacy 136.7; Estimated Glomerular Filt Rate > 60; Glucose Random 88 mg/dL (60-115); Sodium 140 mmol/L (135-145)
[2023-08-05 15:30] LABS: Specific Gravity - Urine >= 1.030 (1.005-1.025)
[2023-08-05 15:52] VITALS: BP 125/87; PULSE 80; RESP 16; TEMP 36.8; O2SAT 98
--- NOTE | 2023-08-05 15:57 | PC.NURSE ---
Pt presents to ED from home, reports lower ABD pain in the bladder area since yesterday. Describes as burning, worsens with urination, 4/10. Pt denies any vomiting, diarrhea, fevers or cough. Pt is alert and oriented, breathing even and unlabored, skin WNL. VSS.
[2023-08-05 16:03] VITALS: BP 125/87; PULSE 80; RESP 16; TEMP 36.8; O2SAT 98
== END 2023-08-05 16:04 | disposition home or self-care (01) ==
PROVIDERS: Nurse Practitioner Family; Emergency Provider Emergency Medicine; PCP Internal Medicine
DX: N39.0 Urinary tract infection, site not specified (principal); B95.7 Other staphylococcus as the cause of diseases classified elsewhere
CPT/HCPCS: 36415; 80048; 81001; 81025; 85025; 87086; 87147; 99283; 99284

== ENCOUNTER 2023-09-12 03:05 | Emergency (ER) | payer MEDICAID, SELFPAY ==
--- NOTE | ~2023-09-12 | XR_ITS ---
EXAMINATION: XR CHEST CLINICAL INFORMATION: Shortness of breath and cough. COMPARISON: None available. TECHNIQUE: 2 views of the chest were obtained. FINDINGS: No significant abnormality is noted involving the heart, lungs, mediastinum, bony thorax or soft tissues. XR/XR chest 2V IMPRESSION: Unremarkable examination.
[2023-09-12 03:12] VITALS: BP 128/78; PULSE 83; RESP 18; TEMP 36.2; O2SAT 99; BMI 41.9
[2023-09-12 03:34] LABS: Hematocrit 38.9 % (37.0-47.0); Hemoglobin 12.7 g/dl (12.0-16.0); Mean Corpuscular HGB Conc 32.6 g/dl (31.0-35.0); Mean Corpuscular Hemoglobin 28.9 pg (27.0-33.0); Mean Corpuscular Volume 88.4 fL (80.0-98.0); Mean Platelet Volume 12.9 fL (9.4-12.3); Platelet Count 183 X10*3/uL (160-400); Red Cell Distribution Width 13.2 % (11.0-16.0); White Blood Count 7.4 X10*3/uL (4.8-10.8)
[2023-09-12 03:40] LABS: IDNOW Serial# 6674DD1D; Strep A Nucleic Acid Negative (Negative)
[2023-09-12 03:47] LABS: Alanine Aminotransferase 14 U/L (0-31); Albumin Level 4.1 g/dL (3.5-5.0); Alkaline Phosphatase 61 U/L (39-117); Anion Gap 13 (12-20); Aspartate Amino Transferase 10 U/L (5-31); Bilirubin Total 1.1 mg/dL (0.0-1.0); Blood Urea Nitrogen 16 mg/dL (9-16); Calcium 9.1 mg/dL (8.4-10.2); Carbon Dioxide 24 mmol/L (22-29); Chloride 106 mmol/L (96-108); Creatinine Clr Calc Pharmacy 144.8; Estimated Glomerular Filt Rate > 60; Glucose Random 99 mg/dL (60-115); Potassium 4.5 mmol/L (3.3-5.1); Sodium 138 mmol/L (135-145); Total Protein 7.3 g/dL (6.5-8.0)
[2023-09-12 04:09] LABS: Influenza A PCR NEGATIVE (Negative); Influenza B PCR NEGATIVE (Negative); Resp Syncy Virus RNA Qual PCR NEGATIVE (Negative); SARS COV2 PCR INHOUSE NEGATIVE (Negative)
--- NOTE | 2023-09-12 05:04 | ED_ITS ---
HPI - General Adult General Chief complaint: Dyspnea Stated complaint: SOB/Cough Time Seen by Provider: 09/12/23 04:30 Source: patient Mode of arrival: ambulatory History of Present Illness ED Provider: Dr Espinoza [facility] narrative: 33-year-old female who presents with having similar nasal congestion, sore throat, headaches approximately 1 month ago, she was informed by her PCP that she had asthma and was given steroids and rescue inhaler for 1 week but states that she does not feel like it helped at all. She reports she feels like she can not breathe at night. Related Data Previous Rx's ?Medication ?Instructions ?Recorded cyclobenzaprine 10 mg tablet 10 mg PO BEDTIME PRN muscle spasm 12/18/22 #10 tabs lidocaine 5 % topical patch 1 patch topical DAILY #15 ea 12/18/22 (Lidoderm) cefuroxime axetil 250 mg tablet 250 mg PO BID #14 tabs 08/05/23 Allergies Allergy/AdvReac Type Severity Reaction Status Date / Time No Known Allergies Allergy Verified 09/12/23 03:16 [No Known Allergies*] Review of Systems 2 Review of Systems: Pertinent positives and negatives as stated in [facility] Past Medical History Source: nursing notes reviewed Medical History No known health problems Social History Social History Advance Directives: No Advance Directives Information Provided: Yes Do you have a plan to hurt others: No Plan Physical Exam ED Vital Signs: Vital Signs - 24 hr 09/12/23 03:12 Temperature 97.2 F Pulse Rate 83 Respiratory Rate 18 Blood Pressure 128/78 Pulse Oximetry 99 Oxygen Delivery Method Room Air BMI result Body Mass Index 41.9 VITAL SIGNS: Reviewed. GENERAL: Well developed, well nourished, in no acute distress. HEAD: Normocephalic/atraumatic EYES: PERRLA, EOMI EARS: Ext canals without abnormality, TMs non-bulging and non-erythematous NOSE: Nasal congestion OROPHARYNX: no oral lesions noted, posterior pharynx clear and non-erythematous without noted tonsillar enlargement/erythema/exudates NECK: Supple, no adenopathy LUNGS: Normal breath sounds. No adventitious sounds or accessory muscle use. SpO2<99> CARDIOVASCULAR: Regular rate and rhythm without noted murmurs ABDOMEN: Soft, non-tender, non-distended with bowel sounds. MUSCULOSKELETAL: No tenderness, deformities, or effusions noted on gross inspection. EXTREMITIES: No cyanosis, clubbing or edema. SKIN: Inspection of the skin reveals no rashes NEUROLOGIC: Alert and oriented x 4. Strength and sensation to light touch were grossly intact x 4. Medical Decision Making Medical Decision Making [facility] Narrative: 33-year-old female with history and clinical presentation most consistent with seasonal allergies/allergic rhinitis and maybe a component GARY but likely secondary to inflamed posterior pharynx tissue, no evidence to suggest AOM/pharyngitis or pneumonia. I reviewed all investigations and hematologic indices negative for leukocytosis/anemia/thrombocytopenia. Chemistry indices negative for DEBORAH/electrolyte or liver enzyme derangements. Viral testing is negative for influenza/RSV/COVID-19 and rapid strep is also negative. Chest x-ray negative for infiltrate or venous congestion. My interpretation is that patient suffers from seasonal allergies with allergic rhinitis, we discussed at length the utility of using daily Claritin and Flonase. Differential Diagnosis Differential Diagnoses: The differential diagnosis associated with the presentation includes Please see the discussion above Admission/Observation Consideration of admission/observation: Escalation of care including admission/observation considered Please see the discussion above Lab Data MDM Lab Attestation statement: I reviewed the patient's lab results. Please see the discussion above 09/12/23 03:27 09/12/23 03:27 Labs: Lab Results 09/12/23 Range/Units 03:27 WBC 7.4 (4.8-10.8) X10*3/uL RBC 4.40 (4.20-5.50) X10*6/uL Hgb 12.7 (12.0-16.0) g/dl Hct 38.9 (37.0-47.0) % MCV 88.4 (80.0-98.0) fL MCH 28.9 (27.0-33.0) pg MCHC 32.6 (31.0-35.0) g/dl RDW 13.2 (11.0-16.0) % Plt Count 183 (160-400) X10*3/uL MPV 12.9 H (9.4-12.3) fL Absolute Nucleated RBC 0.000 (0.0-0.012) X10*3/uL Nucleated RBC % (auto) 0.0 (0.0-0.2) /100WBC Sodium 138 (135-145) mmol/L Potassium 4.5 (3.3-5.1) mmol/L Chloride 106 (96-108) mmol/L Carbon Dioxide 24 (22-29) mmol/L Anion Gap 13 (12-20) BUN 16 (9-16) mg/dL Creatinine 0.77 (0.5-1.4) mg/dL Estim Creat Clear Calc 144.8 Estimated GFR > 60 Random Glucose 99 (60-115) mg/dL Calcium 9.1 (8.4-10.2) mg/dL Total Bilirubin 1.1 H (0.0-1.0) mg/dL AST 10 (5-31) U/L ALT 14 (0-31) U/L Alkaline Phosphatase 61 (39-117) U/L Total Protein 7.3 (6.5-8.0) g/dL Albumin 4.1 (3.5-5.0) g/dL Influenza Type A (PCR) NEGATIVE (Negative) Influenza Type B (PCR) NEGATIVE (Negative) RSV RNA Qual (PCR) NEGATIVE (Negative) SARS-CoV-2 RNA (RT-PCR) NEGATIVE (Negative) S. pyogenes GrpA KAIN Negative (Negative) Radiology Impression Discussion of test interpretation with radiology: I have reviewed the radiologist's reading. Radiologist Impression: Please see the discussion above External Record Review External record reviewed: Outpatient record, Prior outpatient labs and Prior outpatient radiology Critical Care Time Critical Care Time Critical Care Time: Yes Total Critical Care Time: 30 Attestation: I personally attest to this time spent taking care of the patient. Discharge Plan Discharge Clinical Impression: Allergic rhinitis Patient Disposition: Home, Self-Care Instructions: Allergic Rhinitis (ED), Allergies (ED), Postnasal Drip (DC) Additional Instructions: 1. Recommend daily Claritin (loratadine) along with [id number] Flonase (fluticasone) as directed on the outside packaging. 2. Follow-up with your primary care doctor at your earliest convenience. Return to the ER for any worsening symptoms. Prescriptions: No Action cyclobenzaprine 10 mg tablet 10 mg PO BEDTIME PRN (Reason: muscle spasm) Qty: 10 0RF lidocaine [Lidoderm] 5 % adhesive patch,medicated 1 patch topical DAILY Qty: 15 0RF Rx Instructions: leave on most painful area for up to 12 hrs cefuroxime axetil 250 mg tablet 250 mg PO BID Qty: 14 0RF Referrals: Sammie Bazan MD [Primary Care Provider] - Print Language: Malian
[2023-09-12] MEDS: diphenhydrAMINE HCL 25 MG CAPSULE PO (05:34)
[2023-09-12 05:42] VITALS: BP 130/86; PULSE 90; RESP 18; TEMP 36.9; O2SAT 98
== END 2023-09-12 05:43 | disposition home or self-care (01) ==
PROVIDERS: Emergency Provider Student in an Organized Health Care Education/Training Program; PCP Internal Medicine
DX: J30.9 Allergic rhinitis, unspecified (principal); R06.02 Shortness of breath; R05.9 Cough, unspecified; Z03.818 Encounter for observation for suspected exposure to other biological agents ruled out; Z79.899 Other long term (current) drug therapy
CPT/HCPCS: 0241U; 71046; 80053; 85027; 87651; 99283; 99284

== ENCOUNTER 2023-11-17 12:15 | Outpatient (REF) | payer MEDICAID, SELFPAY ==
[2023-11-17 14:18] LABS: TSH reflex Free T4 0.69 uIU/mL (0.32-4.0)
== END 2023-11-17 12:16 | disposition home or self-care (01) ==
LOC: HO.HHCL 12:15
PROVIDERS: Visit Provider Internal Medicine
DX: Z68.41 Body mass index [BMI] 40.0-44.9, adult (principal); E66.01 Morbid (severe) obesity due to excess calories
CPT/HCPCS: 36415; 84443

== ENCOUNTER 2023-11-30 09:06 | Emergency (ER) | payer MEDICAID, SELFPAY ==
--- NOTE | ~2023-11-30 | XR_ITS ---
EXAMINATION: XR CHEST CLINICAL INFORMATION: Cough COMPARISON: Chest radiograph 09/12/2023 TECHNIQUE: 2 views of the chest were obtained. FINDINGS: The lungs are adequately expanded. No focal consolidation. No pleural effusions, edema or pneumothorax. The cardiac mediastinal silhouette is within normal limits. No acute osseous abnormality. XR/XR chest 2V IMPRESSION: No acute pulmonary disease. Electronically signed by: Samson Dias MD 11/30/2023 10:49 AM EDT
--- NOTE | 2023-11-30 09:18 | ECG_ITS ---
Test Reason : CHEST PAIN Blood Pressure : / mmHG Vent. Rate : 069 BPM Atrial Rate : 069 BPM P-R Int : 138 ms QRS Dur : 076 ms QT Int : 394 ms P-R-T Axes : 052 036 032 degrees QTc Int : 422 ms Normal sinus rhythm with sinus arrhythmia Normal ECG No previous ECGs available Referred By: Generic ED Physician Electronically Signed By:LAMBERTO MASTERS
[2023-11-30 09:34] VITALS: BP 113/82; PULSE 68; RESP 18; TEMP 36.6; O2SAT 97; BMI 38.0
--- NOTE | 2023-11-30 09:57 | ED_ITS ---
HPI - URI/Sore Throat General Chief Complaint: Upper Respiratory Symptoms Stated Complaint: Chest pain, cough Time Seen by Provider: 11/30/23 09:51 Source: patient and old records reviewed Mode of arrival: ambulatory Limitations: no limitations History of Present Illness ED Provider: CHARLES THORPE Narrative: 33 yo female with remote hx of asthma no longer on INH here with c/o cough, sputum production and some some pink blood in it no travel, sick contacts not on OCPs. She has not used inhaler in a long time. She thinks she wheezed but isn't sure. She feels very tired and has felt her chest is tight with coughing MD elicited complaint: cough Pertinent past history: asthma Onset (ago): week(s) (1) Consistency: intermittent Severity: mild Description of mucous: yellow and bloody Able to tolerate fluids by mouth: Yes Exacerbating factors: other (coughing) Relieving factors: nothing Associated symptoms: chills, rhinorrhea, cough and shortness of breath Treatments prior to arrival: none Related Data Previous Rx's ?Medication ?Instructions ?Recorded cyclobenzaprine 10 mg tablet 10 mg PO BEDTIME PRN muscle spasm 12/18/22 #10 tabs lidocaine 5 % topical patch 1 patch topical DAILY #15 ea 12/18/22 (Lidoderm) cefuroxime axetil 250 mg tablet 250 mg PO BID #14 tabs 08/05/23 albuterol sulfate 90 mcg/actuation 2 puff inhalation QID PRN 11/30/23 aerosol inhaler shortness of breath or wheezing #6.7 grams azithromycin 250 mg tablet See Rx Instructions PO .COMPLEX #6 11/30/23 tabs Allergies Allergy/AdvReac Type Severity Reaction Status Date / Time No Known Allergies Allergy Verified 11/30/23 09:35 [No Known Allergies*] Review of Systems Review of Systems: Constitutional : No Fever, No Chills ENT/Mouth : No Hoarseness, No sore throat, No Rhinorrhea Eyes: No Redness, No Discharge, No Vision Changes Cardiovascular : No Chest Pain, positive SOB, positive Dyspnea on Exertion, No Edema Respiratory : positive Cough, pos Sputum, positive Wheezing, Gastrointestinal : No Nausea, No Vomiting, No Diarrhea, No abdominal Pain Genitourinary : No Dysuria, No Hematuria Musculoskeletal : No joint pain, No Myalgias Skin : No rash Neuro : No Weakness, No Numbness, No Headache Psych : No anxiety, depression All other systems reviewed and are negative [facility] Past Medical History Attestation statement: The following information was validated with the patient. Source: old records reviewed Medical History No known health problems Social History Social History Patient Tobacco Use Status: Never used Tobacco Physical Exam Vital Signs: Vital Signs: Last Vital Signs Temp 98.3 F 11/30/23 10:06 Pulse 77 11/30/23 10:30 Resp 18 11/30/23 10:30 BP 114/84 11/30/23 10:06 Pulse Ox 99 11/30/23 10:11 O2 Del Method Room Air 11/30/23 10:11 BMI result Body Mass Index 38.0 Appearance: Alert. Oriented X3. No acute distress. Eyes: Pupils equal, round and reactive to light. ENT: Pharynx normal. Neck: Normal inspection. Neck supple. CVS: Normal heart rate and rhythm. Pulses normal. Respiratory: No respiratory distress. Breath sounds slightly diminished Abdomen: Soft and nontender. Skin: Skin warm and dry. Normal skin color. Normal skin turgor. Extremities: No lower extremity edema. No calf ttp Neuro: Oriented X 3. No motor deficit. No sensory deficit. Medications Administered Discontinued Medications Generic Name Dose Route Start Last Admin Trade Name Freq PRN Reason Stop Dose Admin Albuterol Sulfate 2 puff 11/30/23 10:07 11/30/23 10:27 Albuterol Sulfate 90 Mcg 8 Gm Inhaler INHALE 11/30/23 10:08 2 puff ONCE ONE Administration Dexamethasone Sodium Phosphate 8 mg 11/30/23 10:07 11/30/23 10:27 Dexamethasone Sod Phosphate 4 Mg/Ml Vial PO 11/30/23 10:08 8 mg ONCE ONE Administration Medical Decision Making Medical Decision Making [facility] Narrative: 33 yo female with remote hx of asthma no longer on INH here with c/o at this time has had cough, runny nose, chest tightness noted some streaks of blood in her sputum at this time no travel, not on OCPs PERC negative suspect bronchitis vs COVID vs pneumonia Differential Diagnosis Differential Diagnoses: The differential diagnosis associated with the presentation includes bronchitis vs COVID vs pneumonia Admission/Observation Consideration of admission/observation: Escalation of care including admission/observation considered Lab Data MDM Lab Attestation statement: I reviewed the patient's lab results. Labs: Lab Results 11/30/23 Range/Units 10:00 Influenza Type A (PCR) NEGATIVE (Negative) Influenza Type B (PCR) NEGATIVE (Negative) RSV RNA Qual (PCR) NEGATIVE (Negative) SARS-CoV-2 RNA (RT-PCR) NEGATIVE (Negative) Independent Interpretation I performed an independent interpretation of an: EKG and Plain X-Ray (normal) Interpretation: Rate: 69 Rhythm: NSR [place]: normal Normal P waves. Normal LEFTY. Normal QRS complex. ST T wave : normal no [place] qTC: 422 prior studies: no acute ischemia The study has been interpreted contemporaneously by me. . Radiology Impression Discussion of test interpretation with radiology: I have reviewed the rad iologist's reading. External Record Review External record reviewed: Office record Prescription Management I considered prescription management with: Antibiotic and Other Discharge Plan Discharge Clinical Impression: Bronchitis Patient Disposition: Home, Self-Care Instructions: Acute Bronchitis (ED) Additional Instructions: negative for COVID, flu, RSV chest xray negative return for worsening symptoms or concerns use inhaler 2 puffs every 4 hours for wheezing or dyspnea Prescriptions: New azithromycin 250 mg tablet See Rx Instructions .ROUTE .COMPLEX Qty: 6 0RF Rx Instructions: For 250 mg dose pack: take 500 mg today (day 1), then 250 mg for 4 days (days 2-5) albuterol sulfate 90 mcg/actuation HFA aerosol inhaler 2 puff inhalation QID PRN (Reason: shortness of breath or wheezing) Qty: 6.7 0RF No Action cyclobenzaprine 10 mg tablet 10 mg PO BEDTIME PRN (Reason: muscle spasm) Qty: 10 0RF lidocaine [Lidoderm] 5 % adhesive patch,medicated 1 patch topical DAILY Qty: 15 0RF Rx Instructions: leave on most painful area for up to 12 hrs cefuroxime axetil 250 mg tablet 250 mg PO BID Qty: 14 0RF Stand Alone Forms: Work/School Release Print Language: Macedonian
[2023-11-30 10:06] VITALS: BP 114/84; PULSE 67; RESP 18; TEMP 36.8; O2SAT 99
[2023-11-30 10:11] VITALS: O2SAT 99
[2023-11-30] MEDS: Albuterol Sulfate 90 MCG 8 GM INHALER 2 PUFF INHALE (10:27)
[2023-11-30] MEDS: dexAMETHasone sod phosphate 4 MG/ML VIAL 8 MG PO (10:27)
--- NOTE | 2023-11-30 10:29 | PC.NURSE ---
Pt comes to ED today with c/o upper left chest pain, sore throat, and cough. VSS, A&Ox3, afebrile, NAD noted at this time. Pt medicated per JUN RT to bedside for inhaler education. Awaiting CXR and swab results.
[2023-11-30 10:30] VITALS: PULSE 77; RESP 18; O2SAT 99
[2023-11-30 10:44] LABS: Influenza A PCR NEGATIVE (Negative); Influenza B PCR NEGATIVE (Negative); Resp Syncy Virus RNA Qual PCR NEGATIVE (Negative); SARS COV2 PCR INHOUSE NEGATIVE (Negative)
[2023-11-30 11:27] VITALS: BP 114/84; PULSE 77; RESP 18; TEMP 36.8; O2SAT 99
== END 2023-11-30 11:28 | disposition home or self-care (01) ==
PROVIDERS: Emergency Provider Emergency Medicine
DX: J40 Bronchitis, not specified as acute or chronic (principal); R07.89 Other chest pain; R05.9 Cough, unspecified; J34.89 Other specified disorders of nose and nasal sinuses; R06.02 Shortness of breath; Z03.818 Encounter for observation for suspected exposure to other biological agents ruled out; Z79.899 Other long term (current) drug therapy
CPT/HCPCS: 0241U; 71046; 93005; 94640; 99285; J1100

== ENCOUNTER 2024-04-23 03:45 | Emergency (ER) | payer MEDICAID, SELFPAY ==
--- NOTE | 2024-04-23 | ECG_ITS ---
Test Reason : CHEST PAIN Blood Pressure : */* mmHG Vent. Rate : 79 BPM Atrial Rate : 79 BPM P-R Int : 142 ms QRS Dur : 78 ms QT Int : 376 ms P-R-T Axes : 60 35 41 degrees QTcB Int : 431 ms Normal sinus rhythm with sinus arrhythmia Normal ECG When compared with ECG of 30-Nov-2023 09:21, No significant change was found Referred By: Generic ED Physician Electronically Signed By: LUKAS WILEY MD
--- NOTE | ~2024-04-23 | XR_ITS ---
CLINICAL HISTORY: chest pain 1 view chest x-ray. Comparison: CR/SR - XR CHEST 2V - 11/30/23 10:24 EDT Findings: No consolidation, pneumothorax, or effusion. Heart size normal. Impression: 1. No acute cardiopulmonary process. No focal pulmonary consolidation. This document has been electronically signed by: Mazin Fields MD on 04/23/2024 04:39:54
[2024-04-23 03:54] VITALS: BP 130/86; PULSE 76; RESP 22; TEMP 36.5; O2SAT 98; BMI 41.0
--- NOTE | 2024-04-23 04:04 | PC.NURSE ---
pt from home, a&ox4, respirations even and unlabored. pt reporting sudden onset of upper right sided chest pain and shortness of breath, pt is visibly tearful at this time. pt reports hx of anxiety at this time. pt normal sinus on tele 85-88bpm. xray at bedside.
[2024-04-23 04:06] VITALS: PULSE 85
--- NOTE | 2024-04-23 04:37 | ED.CHESTPAIN ---
HPI - Chest Pain General Chief Complaint: Chest Pain Stated Complaint: SOB Time Seen by Provider: 04/23/24 04:30 Source: patient and old records reviewed Mode of arrival: ambulatory Limitations: no limitations History of Present Illness ED Provider: CHARLES THORPE narrative: 34 yo female with no known PMH here with c/o having a bad discussion with her partner two days ago - she then felt like she couldn't see and there were rainbows in both eyes, her heart was racing. Since then she has intermittent heart racing, chest pain across chest and R side hurts to touch, anxiety. These attacks come on at any time. She has not traveled, no recent OCP use, no fevers. It all started after bad discussion . She states she is safe at home. NO known hx of CAD MD complaint: chest pain, chest heaviness and other Onset (ago): day(s) (2) Timing of current episode: episodic Prior episodes: No Onset: during rest and during exertion Pain location: right chest Pain radiation: none Severity: moderate Quality: tightness Relieving factors: nothing Exacerbating factors: stress Context: other Associated symptoms: dyspnea and sense of impending doom Treatment prior to arrival: none Related Data Previous Rx's ?Medication ?Instructions ?Recorded cyclobenzaprine 10 mg tablet 10 mg PO BEDTIME PRN muscle spasm 12/18/22 #10 tabs lidocaine 5 % topical patch 1 patch topical DAILY #15 ea 12/18/22 (Lidoderm) cefuroxime axetil 250 mg tablet 250 mg PO BID #14 tabs 08/05/23 albuterol sulfate 90 mcg/actuation 2 puff inhalation QID PRN 11/30/23 aerosol inhaler shortness of breath or wheezing #6.7 grams azithromycin 250 mg tablet See Rx Instructions PO .COMPLEX #6 11/30/23 tabs hydroxyzine HCl 25 mg tablet 25 mg PO Q8H PRN anxiety #20 tabs 04/23/24 Allergies Allergy/AdvReac Type Severity Reaction Status Date / Time No Known Allergies Allergy Verified 04/23/24 03:57 [No Known Allergies*] Review of Systems Review of Systems: Constitutional : No Weight loss, No Fever, No Chills ENT/Mouth : No sore throat, No Rhinorrhea Eyes: No Eye Pain, No Swelling Cardiovascular : no Chest Pain, no SOB, no Dyspnea on Exertion, No Orthopnea, No Edema, No Palpitations Respiratory : No Cough, No Sputum Gastrointestinal : no Nausea, No Vomiting, No Diarrhea, No abdominal Pain, No Hematochezia, No Melena Genitourinary : No Dysuria, No Urinary Frequency Musculoskeletal : No joint pain, No Myalgias, No Joint Swelling Skin : No Skin Lesions, No rash Neuro : No Weakness, No Numbness, No Dizziness, No Headache Psych : pos Anxiety/Panic, No Depression All other systems reviewed and are negative [facility] Past Medical History Attestation statement: The following information was validated with the patient. Source: old records reviewed Medical History No known health problems Social History Social History Patient Tobacco Use Status: Never used Tobacco Smoked in Last 30 Days: No Use of substances other than those prescribed or required for medical reasons: No Advance Directives: No Advance Directives Information Provided: Yes Do you have a plan to hurt others: No Plan Patient : No Physical Exam Vital Signs: Vital Signs: Last Vital Signs Temp 97.7 F 04/23/24 03:54 Pulse 76 04/23/24 03:54 Resp 22 H 04/23/24 03:54 BP 130/86 04/23/24 03:54 Pulse Ox 98 04/23/24 03:54 O2 Del Method Room Air 04/23/24 03:54 BMI result Body Mass Index 41.0 Appearance: Alert. Oriented X3. No acute distress. Tearful Eyes: Pupils equal, round and reactive to light. ENT: Pharynx normal. Neck: Normal inspection. Neck supple. CVS: Normal heart rate and rhythm. Pulses normal. Respiratory: No respiratory distress. Breath sounds normal. Abdomen: Soft and nontender. Skin: Skin warm and dry. Normal skin color. Normal skin turgor. Extremities: No lower extremity edema. Neuro: Oriented X 3. No motor deficit. No sensory deficit. CN2-12 intact Medications Administered Discontinued Medications Generic Name Dose Route Start Last Admin Trade Name Freq PRN Reason Stop Dose Admin Hydroxyzine HCl 25 mg 04/23/24 04:43 04/23/24 05:06 Hydroxyzine Hcl 25 Mg Tablet PO 04/23/24 04:44 25 mg ONCE ONE Administration Medical Decision Making Medical Decision Making [facility] Narrative: 34 yo female with no sig PMH not on OCPs, no recent travel, here with recent atypical symptoms of seeing a rainbow and now intermittent chest pain after having a stressful event. She has no SI/HI, she feels safe at home, she c/o Differential Diagnosis Differential Diagnoses: The differential diagnosis associated with the presentation includes atypical chest pain, PERC negative stress reaction distal pulses intact atypical story doubt dissection chest wall pain Admission/Observation Consideration of admission/observation: Escalation of care including admission/observation considered negative workup stable for DC Lab Data [facility] Lab Attestation statement: I reviewed the patient's lab results. 04/23/24 05:05 04/23/24 05:05 Labs: Lab Results 04/23/24 Range/Units 05:05 WBC 5.6 (4.8-10.8) X10*3/uL RBC 4.32 (4.20-5.50) X10*6/uL Hgb 12.1 (12.0-16.0) g/dl Hct 37.6 (37.0-47.0) % MCV 87.0 (80.0-98.0) fL MCH 28.0 (27.0-33.0) pg MCHC 32.2 (31.0-35.0) g/dl RDW 13.0 (11.0-16.0) % Plt Count 149 L (160-400) X10*3/uL MPV 13.1 H (9.4-12.3) fL Immature Gran % (Auto) 0.2 (0.0-0.4) % Neut % (Auto) 55.6 (45-73) % Lymph % (Auto) 31.9 (20-40) % [place] % (Auto) 7.6 (2-11) % Eos % (Auto) 4.3 H (0-4) % Baso % (Auto) 0.4 (0-2) % Lymph # (Auto) 1.8 (1.2-4.9) X10*3/uL [place] # (Auto) 0.4 (0.1-1.2) X10*3/uL Eos # (Auto) 0.2 (0.0-0.4) X10*3/uL Baso # (Auto) 0.0 (0.0-0.2) X10*3/uL Abs Immat Gran (auto) 0.01 (0.00-0.03) X10*3/uL Absolute Neuts (auto) 3.1 (2.0-8.3) x10*3/uL Absolute Nucleated RBC 0.000 (0.0-0.012) X10*3/uL Nucleated RBC % (auto) 0.0 (0.0-0.2) /100WBC Sodium 138 (135-145) mmol/L Potassium 3.7 (3.3-5.1) mmol/L Chloride 108 (96-108) mmol/L Carbon Dioxide 22 (22-29) mmol/L Anion Gap 12 (12-20) BUN 16 (9-16) mg/dL Creatinine 0.77 (0.5-1.4) mg/dL Estim Creat Clear Calc 141.9 Estimated GFR > 60 Random Glucose 97 (60-115) mg/dL Calcium 8.4 D (8.4-10.2) mg/dL Magnesium 1.9 (1.6-2.6) mg/dL Total Bilirubin 0.9 (0.0-1.0) mg/dL Direct Bilirubin 0.2 (0.0-0.5) mg/dL AST 12 (5-31) U/L ALT 8 (0-31) U/L Alkaline Phosphatase 49 (39-117) U/L Troponin I High Sens < 2.7 (<3.5-17.0) ng/L Total Protein 7.2 (6.5-8.0) g/dL Albumin 4.0 (3.5-5.0) g/dL TSH 0.90 (0.32-4.0) uIU/mL Beta HCG, Quant < 2 mIU/mL Independent Interpretation I performed an independent interpretation of an: EKG and Plain X-Ray (normal ) Interpretation: Rate: 79 Rhythm: NSR [place]: normal Normal P waves. Normal LEFTY. Normal QRS complex. ST T wave : normal no [place] qTC: 431 prior studies: artifact but no acute ischemia The study has been interpreted contemporaneously by me. . Radiology Impression Discussion of test interpretation with radiology: I have reviewed the radiologist's reading. Prescription Management I considered prescription management with: Other Discharge Plan Discharge Clinical Impression: Atypical chest pain Patient Disposition: Home, Self-Care Instructions: Chest Pain (ED) Additional Instructions: EKG, chest xray reassuring negative tests for heart small drop in platelets very minor can repeat with your doctor next week return for any worsening symptoms or concerns. take medications as needed Prescriptions: New hydroxyzine HCl 25 mg tablet 25 mg PO Q8H PRN (Reason: anxiety) Qty: 20 0RF No Action cyclobenzaprine 10 mg tablet 10 mg PO BEDTIME PRN (Reason: muscle spasm) Qty: 10 0RF lidocaine [Lidoderm] 5 % adhesive patch,medicated 1 patch topical DAILY Qty: 15 0RF Rx Instructions: leave on most painful area for up to 12 hrs cefuroxime axetil 250 mg tablet 250 mg PO BID Qty: 14 0RF azithromycin 250 mg tablet See Rx Instructions .ROUTE .COMPLEX Qty: 6 0RF Rx Instructions: For 250 mg dose pack: take 500 mg today (day 1), then 250 mg for 4 days (days 2-5) albuterol sulfate 90 mcg/actuation HFA aerosol inhaler 2 puff inhalation QID PRN (Reason: shortness of breath or wheezing) Qty: 6.7 0RF Stand Alone Forms: Work/School Release Print Language: Citizen Of [place]
[2024-04-23] MEDS: hydrOXYzine HCL 25 MG TABLET PO (05:06)
[2024-04-23 05:11] LABS: MANUAL DIFF FLAG NO
[2024-04-23 05:13] LABS: Basophils Percent Auto 0.4 % (0-2); Eosinophils Absolute Auto 0.2 X10*3/uL (0.0-0.4); Eosinophils Percent Auto 4.3 % (0-4); Hematocrit 37.6 % (37.0-47.0); Hemoglobin 12.1 g/dl (12.0-16.0); Imm Gran Abs Auto 0.01 X10*3/uL (0.00-0.03); Imm Gran Pct Auto 0.2 % (0.0-0.4); Lymphocytes Absolute Auto 1.8 X10*3/uL (1.2-4.9); Lymphocytes Percent Auto 31.9 % (20-40); Mean Corpuscular HGB Conc 32.2 g/dl (31.0-35.0); Mean Platelet Volume 13.1 fL (9.4-12.3); Monocytes Absolute Auto 0.4 X10*3/uL (0.1-1.2); Monocytes Percent Auto 7.6 % (2-11); Neutrophils Absolute Auto 3.1 x10*3/uL (2.0-8.3); Neutrophils Percent Auto 55.6 % (45-73); Platelet Count 149 X10*3/uL (160-400); Red Blood Count 4.32 X10*6/uL (4.20-5.50); White Blood Count 5.6 X10*3/uL (4.8-10.8)
--- NOTE | 2024-04-23 05:19 | PC.NURSE ---
pt medicated per mar, tolerated well with water.
[2024-04-23 05:34] LABS: Alanine Aminotransferase 8 U/L (0-31); Alkaline Phosphatase 49 U/L (39-117); Anion Gap 12 (12-20); Aspartate Amino Transferase 12 U/L (5-31); Bilirubin Direct 0.2 mg/dL (0.0-0.5); Bilirubin Total 0.9 mg/dL (0.0-1.0); Blood Urea Nitrogen 16 mg/dL (9-16); Calcium 8.4 mg/dL (8.4-10.2); Carbon Dioxide 22 mmol/L (22-29); Chloride 108 mmol/L (96-108); Creatinine Clr Calc Pharmacy 141.9; Estimated Glomerular Filt Rate > 60; Glucose Random 97 mg/dL (60-115); Magnesium 1.9 mg/dL (1.6-2.6); Potassium 3.7 mmol/L (3.3-5.1); Sodium 138 mmol/L (135-145); Total Protein 7.2 g/dL (6.5-8.0)
[2024-04-23 05:35] LABS: Troponin-I High Sensitivity < 2.7 ng/L (<3.5-17.0)
[2024-04-23 05:49] LABS: HCG Quantitative < 2 mIU/mL
[2024-04-23 06:59] VITALS: BP 130/86; PULSE 76; RESP 20; TEMP 36.5; O2SAT 98
--- NOTE | 2024-04-23 06:59 | PC.NURSE ---
pt refused lidocaine patch and vitals on d.c, provider aware.
== END 2024-04-23 07:00 | disposition home or self-care (01) ==
PROVIDERS: Emergency Provider Emergency Medicine
DX: R07.89 Other chest pain (principal); R06.02 Shortness of breath; I49.8 Other specified cardiac arrhythmias; Z79.899 Other long term (current) drug therapy
CPT/HCPCS: 36415; 71045; 80048; 80076; 83735; 84443; 84484; 84702; 85025; 93005; 99283; 99285

== ENCOUNTER → 2024-04-23 03:53 | Outpatient (BNV) | payer MEDICAID, SELFPAY | PROVIDERS: Emergency Provider Emergency Medicine; Visit Provider Internal Medicine Cardiovascular Disease | DX: R07.9 Chest pain, unspecified (principal) | CPT/HCPCS: 93010 ==

== ENCOUNTER 2024-04-26 10:50 | Outpatient (REF) | payer MEDICAID, SELFPAY ==
[2024-04-26 11:37] LABS: MANUAL DIFF FLAG NO
[2024-04-26 12:04] LABS: Basophils Percent Auto 0.5 % (0-2); Eosinophils Absolute Auto 0.2 X10*3/uL (0.0-0.4); Eosinophils Percent Auto 3.1 % (0-4); Hematocrit 39.5 % (37.0-47.0); Hemoglobin 12.5 g/dl (12.0-16.0); Imm Gran Abs Auto 0.01 X10*3/uL (0.00-0.03); Imm Gran Pct Auto 0.2 % (0.0-0.4); Lymphocytes Absolute Auto 1.7 X10*3/uL (1.2-4.9); Lymphocytes Percent Auto 28.9 % (20-40); Mean Corpuscular HGB Conc 31.6 g/dl (31.0-35.0); Mean Corpuscular Volume 88.4 fL (80.0-98.0); Mean Platelet Volume 13.3 fL (9.4-12.3); Monocytes Absolute Auto 0.4 X10*3/uL (0.1-1.2); Monocytes Percent Auto 7.4 % (2-11); Neutrophils Absolute Auto 3.5 x10*3/uL (2.0-8.3); Neutrophils Percent Auto 59.9 % (45-73); Platelet Count 164 X10*3/uL (160-400); Red Blood Count 4.47 X10*6/uL (4.20-5.50); Red Cell Distribution Width 13.2 % (11.0-16.0); White Blood Count 5.9 X10*3/uL (4.8-10.8)
--- OUTSIDE RECORDS SUMMARY | 2024-04-26 12:35 | XMS_ITS | Clinical Summary ---
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 60 tablet 11 023 Active Spacer/Aero-Hol ding Chambers deviceIndicatio ns:Mild intermittent asthma with acute exacerbation 1 each every 6 (six) hours if needed (use if wheezing, chest thightness, dyspnea). 1 each 024 Active albuterol (2.5 MG/3ML) 0.083% nebulizer solutionIndicat ions:Moderate persistent asthma, unspecified whether complicated Take 3 mL (2.5 mg) by nebulization every 4 (four) hours if needed for wheezing. 75 mL 3 024 2024 Active montelukast (Singulair) 10 MG tabletIndicatio ns:Moderate persistent asthma, unspecified whether complicated Take 1 tablet (10 mg) by mouth Once per day. 30 tablet 11 024 2024 Active famotidine (Pepcid) 20 MG tabletIndicatio ns:Gastroesopha geal reflux disease, unspecified whether esophagitis present Take 1 tablet (20 mg) by mouth 2 times daily. 60 tablet 11 024 2024 Active phentermine 15 MG capsuleIndicati ons:Class 3 severe obesity due to excess calories with serious comorbidity and body mass index (BMI) of 40.0 to 44.9 in adult ([facility]) Take 1 capsule (15 mg) by mouth before breakfast. 30 capsule Active topiramate (Topamax) 25 MG tabletIndicatio ns:Class 3 severe obesity due to excess calories with serious comorbidity and body mass index (BMI) of 40.0 to 44.9 in adult ([facility]) Take 1 tablet (25 mg) by mouth Once per day. 30 tablet 1 024 2024 Active Ventolin HFA 108 (90 Base) MCG/ACT inhalerIndicati ons:Moderate persistent asthma, unspecified whether complicated INHALE 2 PUFFS EVERY 6 HOURS IF NEEDED FOR WHEEZING. 18 g Active acetaminophen (Tylenol) 500 MG tablet Take 2 tablets (1,000 mg) by mouth every 6 (six) hours if needed for moderate pain or fever for up to 25 doses. 50 tablet Active budesonide-form oterol (Symbicort) 80-4.5 MCG/ACT inhalerIndicati ons:Moderate persistent asthma, unspecified whether complicated Inhale 2 puffs in the morning and at bedtime. Rinse mouth with water after use to reduce aftertaste and incidence of candidiasis. Do not swallow. 1 each 5 024 2024 Active baclofen (Lioresal) 10 MG tablet Take 1 tablet (10 mg) by mouth if needed in the morning, at noon, and at bedtime for muscle spasms. 60 tablet 1 025 2024 Active naproxen (Naprosyn) 500 MG tablet Take 1 tablet (500 mg) by mouth if needed in the morning and at bedtime for mild pain. 30 tablet 1 025 2025 Active Diclofenac Sodium 1 % gelIndications: Acute pain of right knee Apply 2 g topically if needed in the morning, at noon, in the evening, and at bedtime (pain). 150 g 025 Active Diclofenac Sodium 1 % gelIndications: Acute pain of right knee Apply 2 g topically if needed in the morning and at bedtime (pain). 150 g 1 023 2024 Discontinued(R eorder (will not trigger notification to Pharmacy)) Active Problems Problem Noted Date Diagnosed Date Class 3 severe obesity due t o excess calories with serious comorbidity and body mass index (BMI) of 40.0 to 44.9 in adult 10/27/2023 Assessment & Plan (10/27/2023 11:24 AM EDT): C/w diet, portion control C/w same medications RTC 6 weeks Moderate persistent asthma 09/29/2023 Assessment & Plan (10/27/2023 11:23 AM EDT): C/w albuterol PRN C/w montelukast 10mg daily I discontinue flovent and put her on symbicort 80/4.5mg BID RTC 6 weeks Assessment & Plan (10/02/2023 3:35 PM EDT): Counseling done about avoiding asthma triggers, I advise weight reduction C/w albuterol PRN I will also prescribe nebulizer I added Flovent BID and montelukast RTC 4 weeks GERD (gastroesophageal reflux disease) Assessment & Plan (10/02/2023 3:35 PM EDT): I advise patient to avoid NSAIDs, spicy and acid food, I advise to eat at the same time every day, I advise to elevate the head of the bed and take medications as prescribe Mild intermittent asthma with acute exacerbation 08/22/2023 Assessment & Plan (08/22/2023 2:06 PM EDT): Patient educated to avoid triggers I Prescribed for her albuterol inhaler Q 4-6hrs 2 puffs with a chamber scpacer I will prescribe prednisone 40mg daily for 5 days RTC 4-6 weeks with me for f/u Epigastric pain 11/14/2022 Assessment & Plan (11/15/2022 3:41 PM EDT): I advise patient to avoid NSAIDs, spicy and acid food, I advise to eat at the same time every day, I advise to elevate the head of the bed and take medications as prescribe Nausea 11/14/2022 Numbness and tingling in both hands 11/14/2022 Pain of right thumb 11/14/2022 Chronic fatigue 10/17/2022 Polyarthralgia 10/17/2022 Numbness and tingling 10/17/2022 Neuropathy of right peroneal nerve 10/17/2022 Chronic migraine 04/28/2022 Obesity 04/28/2022 Assessment & Plan (10/02/2023 3:36 PM EDT): Today extensive discussion was done about life style modifications I advise healthy diet (low calorie) and cardiovascular exercise I will try today medications for weight loss RTC 4 weeks Depression 04/28/2022 Microscopic hematuria 03/10/2017 Migraine without aura, not refractory 03/10/2017 Chronic low back pain 10/06/2016 Major depression single episode, in partial luis alberto ssion 10/06/2016 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 Encounters Date Type Department Care Team Description 04/25/2024 8:40 AM EST Office Visit [facility] [address] [place] [phone] Mary Jane Malloy DO Chest pain, unspecified type (Primary Dx); Palpitations; Acute pain of right knee 04/23/2024 Orders Only [facility] External Provider, [facility] from Last 3 Months Immunizations Name Administration Dates Next Due Hep B, Unspecified 1990 MMR 1991 Tdap 12/01/2021 Social History Tobacco Use Types Packs/Day Years Used Date Smoking Tobacco: Never Passive Smoke Exposure: Never Smokeless Tobacco: Never Tobacco Cessation:Counseling Given: Not Answered Alcohol Use Standard Drinks/Week Comments Never 0 (1 standard drink = 0.6 oz pur e alcohol) Depression Answer Date Recorded Patient Health Questionnaire-9 Score 0 09/29/2023 Patient Health Questionnaire-9 Score 0 09/29/2023 Last PHQ-9: Questionnaire Data Not on file 0 09/29/2023 Housing Stability Answer Date Recorded What is your housing situation today? I have citlaly andrade 09/29/[address] you li ve. Do you have problems with any of the following? None of the above 09/29/2023 Food Insecurity Answer Date Recorded Within the past 12 months, y ou worried that your food would run out before you got money to buy more: Never True 09/29/2023 Within the past 12 months,th e food you bought just didn't last and you didn't have enough money to get more: Never True Transportation Answer Date Recorded In the past 12 months, has l ack of transportation kept you from medical appts, meetings, work or from getting things needed for daily living? No 09/29/2023 Utilities Answer Date Recorded In the past 12 months, has t he electric, gas, oil or water company threatened to shut off services in your home? No 09/29/2023 Depression Answer Date Recorded Patient Health Questionnaire-2 Score 0 09/29/2023 Internet Access Answer Date Recorded Internet Access Q1 Yes 12/01/2023 Internet Access Q2 Not on file 12/01/2023 Comments Unknown Sex and Gender Information Value Date Recorded Sex Assigned at Female 01/31/2022 10:31 AM EDT Legal Sex Female 10:31 AM EDT Gender Identity Female 01/31/2022 10:31 AM EDT Sexual Orientation Straight 01/31/2022 10 :31 AM EDT Last Filed Vital Signs Vital Sign Reading Time Taken Comments Blood Pressure 118/81 04/25/2024 8:45 AM EST Pulse 80 04/25/2024 8:45 AM EST Temperature 36.8 ??C (98.2 ??F) 04/25/2024 8:45 AM ES T Respiratory Rate 17 04/25/2024 8:45 AM EST Oxygen Saturation 100% 04/25/2024 8:45 AM EST Inhaled Oxygen Concentration - - Weight 124 kg (274 lb) 04/25/2024 8:45 AM EST Height 172.7 cm (5' 8 ) 12/01/2023 8:47 AM EDT Body Mass Index 41.66 12/01/2023 8:47 AM EDT Plan of Treatment Health Maintenance Due Date Last Done Comments Hepatitis B Vaccines (2 of 3 - 3-dose series) 1990 1990 Pneumococcal Vaccine: Pediatrics (0 to 5 Years) and At-Risk Patients (6 to 64 Years) (1 of 2 - PCV) 1996 Family Planning (PISQ) 2005 COVID-19 Vaccine ( - 2023-2 5 season) 2023 10/28/2020, 10/07/2020 Influenza Vaccine (#1) 2023 Alcohol/Substance Use Screening 09/28/2024 09/29/2023 Depression Screening 09/28/2024 09/29/2023, 09/29/2023 SDOH Screening 09/28/2024 09/29/2023 Tobacco Screening 04/25/2025 04/25/2024 Cervical Cancer Screening 12/02/2025 HPV/Cotest 12/02/2025 12/02/2020 Pap Smear 12/02/2025 12/02/2020 Lipid Panel 10/18/2027 10/17/2022, 02/16/2021, 10/22/2020 DTaP/Tdap/Td Vaccines (2 - T d or Tdap) 12/02/2031 12/01/2021 Zoster Vaccines (1 of 2) 2040 RSV Patients and Patients Aged 60 years or older (1 - 1-dose 75+ series) 2065 HIV Screening Completed 07/27/2023, 10/17/2022 Hepatitis C Screening Completed 07/27/2023 , 10/17/2022 HIB Vaccines Aged Out No longer eligi ble based on patient's age to complete this topic HPV Vaccines Aged Out No longer eligi ble based on patient's age to complete this topic Hepatitis A Vaccines Aged Out No long er eligible based on patient's age to complete this topic IPV Vaccines Aged Out No longer eligi ble based on patient's age to complete this topic Meningococcal Vaccine Aged Out No mago ben eligible based on patient's age to complete this topic RSV under 20 months Aged Out No longe r eligible based on patient's age to complete this topic Rotavirus Vaccines Aged Out No longer eligible based on patient's age to complete this topic Procedures Procedure Name Priority Date/Time Associated Diagnosis Comments CBC WITH AUTO DIFFERENTIAL Routine 04/26/2024 10:51 AM EST Palpitations HCG, TOTAL, QN Routine 04/23/2024 5:05 AM EST TSH W/REFLEX TO FT4 Routine 04/23/2024 5 :05 AM EST HIGH SENSITIVITY TROPONIN I Routine 04/23/2024 5:05 AM EST MAGNESIUM Routine 04/23/2024 5:05 AM EST BASIC METABOLIC PANEL Routine 04/23/2024 5:05 AM EST HEPATIC FUNCTION PANEL Routine 04/23/2024 5:05 AM EST CBC WITH AUTO DIFFERENTIAL Routine 04/23/2024 5:05 AM EST XR CHEST 1 VIEW Routine 04/23/2024 4:39 AM EST HEPATITIS C AB W/REFL TO HCV RNA, QN, PCR Routine 07/27/2023 9:23 AM EDT Acute vaginitis HIV 1/2 ANTIGEN/ANTIBODY, FOURTH GENERATION W/RFL Routine 07/27/2023 9:23 AM EDT Acute vaginitis LIPID PANEL, STANDARD Routine 10/17/2022 2:57 PM EDT HPV MRNA E6/E7 Routine 12/02/2020 10:33 AM EDT THINPREP PAP Routine 12/02/2020 10:33 AM EDT from Last 3 Months or Most Recently Relevant to Health Maintenance Results * (ABNORMAL) CBC auto differential (04/26/2024 10:51 AM EST) Only the most recent of2 resultswithin the time period is included. White Blood Count 5.9 4.8 - 10.8 X10*3/uL [facility] Red Blood Count 4.47 4.20 - 5.50 X10*6/uL [facility] Hemoglobin 12.5 12.0 - 16.0 g/dl [facility] Hematocrit 39.5 37.0 - 47.0 % [facility] Mean Corpuscular Volume 88.4 80.0 - 98.0 fL [facility] Mean Corpuscular Hemoglobin 28.0 27.0 - 33.0 pg [facility] Mean Corpuscular HGB Conc 31.6 31.0 - 35.0 g/dl [facility] Red Cell Distribution Width 13.2 11.0 - 16.0 % [facility] Platelet Count 164 160 - 400 X10*3/uL [facility] Mean Platelet Volume 13.3(H) 9.4 - 12.3 fL [facility] Neutrophils Percent Auto 59.9 45 - 73 % [facility] Imm Gran Pct Auto 0.2 0.0 - 0.4 % [facility] Lymphocytes Percent Auto 28.9 20 - 40 % [facility] Monocytes Percent Auto 7.4 2 - 11 % [facility] Eosinophils Percent Auto 3.1 0 - 4 % [facility] Basophils Percent Auto 0.5 0 - 2 % [facility] NRBC Pct Auto 0.0 0.0 - 0.2 /100WBC [facility] Neutrophils Absolute Auto 3.5 2.0 - 8.3 x10*3/uL [facility] Imm Gran Abs Auto 0.01 0.00 - 0.03 X10*3/uL [facility] Lymphocytes Absolute Auto 1.7 1.2 - 4.9 X10*3/uL [facility] Monocytes Absolute Auto 0.4 0.1 - 1.2 X10*3/uL [facility] Eosinophils Absolute Auto 0.2 0.0 - 0.4 X10*3/uL [facility] Basophils Absolute Auto 0.0 0.0 - 0.2 X10*3/uL [facility] NRBC Abs Auto 0.000 0.0 - 0.012 X10*3/uL [facility] Blood Venous blood specimen / Unknown 04/26/2024 10:51 AM EST 04/26/2024 11:35 AM EST us Mary Jane Malloy DO LAB BLOOD ORDERABLES Final R esult [facility] [address] [place] [phone] * High Sensitivity Troponin I (04/23/2024 5:05 AM EST) Pathologist [facility] TROPONIN I HIGH SENSITIVITY <2.7 <3.5 - 17.0 ng/L [facility] Comment:The Fischer high sens itivity Troponin-I results should beused in conjunction with other diagnostic information suchas ECG, clinical observations and information, and patientsymptoms to aid in the diagnosis of [place]. 04/23/2024 5:05 AM EST 04/23/2024 5:09 AM EST Generic External Data Provider LAB BLOOD ORDERAB LES Final Result Performing Organization Address [facility] de Phone Number [facility] [address] [place] [phone] * TSH with Reflex to Free T4 (04/23/2024 5:05 AM EST) Pathologist [facility] TSH reflex Free T4 0.90 0.32 - 4.0 uIU/mL [facility] 04/23/2024 5:05 AM EST 04/23/2024 5:09 AM EST Generic External Data Provider LAB BLOOD ORDERAB LES Final Result Performing Organization Address [facility] de Phone Number [facility] [address] [place] [phone] * hCG, Total, Quantitative (04/23/2024 5:05 AM EST) Pathologist [facility] HCG Quantitative <2 mIU/mL [facility] Comment:Weeks post LMP Appro ximate hCG(Last Menstrual Period) Range (mIU/ml)3 - 4 weeks 9 - 1304 - 5 weeks 75 - 2,6005 - 6 weeks 850 - 20,8006 - 7 weeks 4000 - 100,2007 - 12 weeks 11,500 - 289,57492 - 16 weeks 18,300 - 137,19438 - 29 weeks (2nd trimester) 1,400 - 53,30833 - 41 weeks (3rd trimester) 940 - 60,000The Fischer B- hCG assay is used for the early detection ofpregnancy; it cannot be used to diagnose any conditionunrelated to . If a B-hCG level is not supportedby the clinical evidence, results should be confirmed by analternative method (qualitative urine hCG, for example). 04/23/2024 5:05 AM EST 04/23/2024 5:09 AM EST Generic External Data Provider LAB BLOOD ORDERAB LES Final Result Performing Organization Address City/[facility]/ZIP Co de Phone Number [facility] [address] [place] [phone] * Magnesium (04/23/2024 5:05 AM EST) Magnesium 1.9 1.6 - 2.6 mg/dL [facility] 04/23/2024 5:05 AM EST 04/23/2024 5:09 AM EST Generic External Data Provider LAB BLOOD ORDERAB LES Final Result Performing Organization Address [facility] Co de Phone Number [facility] [address] [place] [phone] * Hepatic Function Panel (04/23/2024 5:05 AM EST) Bilirubin, Total 0.9 0.0 - 1.0 mg/dL [facility] Bilirubin, Direct 0.2 0.0 - 0.5 mg/dL [facility] Aspartate Amino Transferase 12 5 - 31 U/L [facility] Alanine Aminotransferase 8 0 - 31 U/L [facility] Total Protein 7.2 6.5 - 8.0 g/dL [facility] Albumin Level 4.0 3.5 - 5.0 g/dL [facility] Alkaline Phosphatase 49 39 - 117 U/L [facility] 04/23/2024 5:05 AM EST 04/23/2024 5:09 AM EST us Generic External Data Provider LAB BLOOD ORDERAB LES Final Result Performing Organization Address City/[facility]/ZIP Co de Phone Number [facility] [address] [place] [phone] * Basic Metabolic Panel (04/23/2024 5:05 AM EST) Sodium 138 135 - 145 mmol/L [facility] Potassium 3.7 3.3 - 5.1 mmol/L [facility] Chloride 108 96 - 108 mmol/L [facility] Carbon Dioxide 22 22 - 29 mmol/L [facility] Anion Gap 12 12 - 20 [facility] Urea Nitrogen (BUN) 16 9 - 16 mg/dL [facility] Creatinine, Serum 0.77 0.5 - 1.4 mg/dL [facility] Creatinine Clr Calc Pharmacy 141.9 [facility] Comment:Provided height and weight: 172.72 cm,122.47 kg.eGFR (calculated from the MDRD study equation) and eCrCl(calculated from the Cockcroft-Gault equation) are based ondifferent parameters and may not yield comparable results.If eCrCl result is absurd, please check patient'sheight/weight. Estimated Glomerular Filt Rate >60 [facility] Comment:Chronic Kidney Disea se: Estimated GFR < 60 mL/min/1.51s4Qvlbso Kidney Disease: Estimated GFR < 15 mL/min/1.73m2 Glucose 97 60 - 115 mg/dL [facility] Calcium 8.4 8.4 - 10.2 mg/dL [facility] 04/23/2024 5:05 AM EST 04/23/2024 5:09 AM EST us Generic External Data Provider LAB BLOOD ORDERAB LES Final Result Performing Organization Address City/[facility]/ZIP Co de Phone Number [facility] [address] [place] [phone] * XR Chest 1 View (04/23/2024 4:39 AM EST) Anatomical Region Laterality Modality Chest Radiographic Patricia ging 04/23/2024 4:39 AM EST Narrative 04/23/2024 4:41 AM EST ? [facility] ?[address] ?[place] [address] ?XRay Report ? Signed ? Patient: Nancie Gomes ?M ?? R#: [id number] ? : 1990 ?Acct:[id number] ? Age/Sex: 34 / F ?ADM Date: 04/23/24 ? Loc: HO.ED ? Attending Dr: ? Ordering Physician: Lesly Ramirez DO ?? Date of Service: 04/23/24 ?? Procedure(s): XR chest 1V ?? Accession Number(s): [id number] ? cc: Lesly Ramirez DO; [facility] ? CLINICAL HISTORY: chest pain ? 1 view chest x-ray. ? Comparison: CR/SR - XR CHEST 2V - 11/30/23 10:24 EDT ? Findings: ?? No consolidation, pneumothorax, or effusion. Heart size normal. ? Impression: ?? 1. No acute cardiopulmonary process. No focal pulmonary consolidation. ? This document has been electronically signed by: Mazin Fields MD on ?? 04/23/2024 04:39:54 ? Dictated By: ?Mazin Fields MD ? Signed By: ?<Electronically signed by Mazin Fields MD in OV> ? 04/23/24 0441 ? DD/ 0439 ? TD/TT: 04/23/24 0439 ? Gyro Compass Tester: ? Procedure Note Saida, Image - 04/23/[address] [address] XRay Report Signed Patient: Yandel LuJordan sesay#: [id number] : 1990Acct:[id number] Age/Sex: 34 / FADM Date: 04/23/24 Loc: HO.ED Attending Dr: Ordering Physician: Lesly Ramirez DO Date of Service: 04/23/24 Procedure(s): XR chest 1V Accession Number(s): [id number] cc: Lesly Ramirez DO; [facility] CLINICAL HISTORY: chest pain 1 view chest x-ray. Comparison: CR/SR - XR CHEST 2V - 11/30/23 10:24 EDT Findings: No consolidation, pneumothorax, or effusion. Heart size normal. Impression: 1. No acute cardiopulmonary process. No focal pulmonary consolidation. This document has been electronically signed by: Mazin Fields MD on 04/23/2024 04:39:54 Dictated By: Mazin Fields MD Signed By: <Electronically signed by Mazin Fields MD in OV> 04/23/24440 DD/ 8 TD/TT: 04/23/24438 Gyro Compass Tester: [facility] External Provider IMG XR PROCEDURES Final Result * Hepatitis C Antibody with Reflex to HCV, RNA, Quantitative, Real-Time PCR (07/27/2023 9:23 AM EDT) Hepatitis C Antibody Nonreactive Nonreactive [facility] Comment:Antibodies to HCV no t detected; does not exclude early acuteHCV infection. Blood Venous blood specimen / Unknown 07/27/2023 9:23 AM EDT 07/27/2023 11:28 AM EDT Gabi Anderson MD LAB BLOOD ORDERABLES Final Re sult [facility] [address] [place] [phone] * HIV-1/2 Antigen and Antibodies, Fourth Generation, with Reflexes (07/27/2023 9:23 AM EDT) HIV AB/AG Nonreactive Nonreactive [facility] Comment:HIV-1 p24 Ag and/or HIV-1/HIV-2 Ab not detected.A test result that is nonreactive does not exclude thepossibility of exposure to or infection with HIV-1 and/orHIV-2. Nonreactive results in this assay for individualswith prior exposure to HIV-1 and/or HIV-2 may be due toantigen and antibody levels that are below the limit ofdetection of this assay.The [employer] HIV Ag/Ab Combo assay result andsupplemental assay results should be interpreted inconjunction with the patient's clinical presentation,history and other laboratory results. If the results areinconsistent with clinical evidence, additional testing issuggested to confirm the result. Blood Venous blood specimen / Unknown 07/27/2023 9:23 AM EDT 07/27/2023 11:28 AM EDT Gabi Anderson MD LAB BLOOD ORDERABLES Final Re sult [facility] [address] [place] [phone] * Lipid Panel, Standard (10/17/2022 2:57 PM EDT) Triglycerides 248 mg/dL [facility] Comment:Desirable Triglyceri de: less than 150 mg/dLBorderline High Triglyceride 150-199 mg/dLHigh Triglyceride: 200-499 mg/dLVery High Triglyceride: greater than or equal to 5OO mg/dL Cholesterol 213 mg/dL [facility] Comment:Desirable Cholestero l: less than 200 mg/dLBorderline High Cholesterol: 200-239 mg/dLHigh Cholesterol: greater than 239 mg/dL LDL Cholesterol Calculated 118 mg/dl [facility] Comment:Desirable LDL: less than 100 mg/dLNear Optimal/Above Optimal LDL: 110- 129 mg/dLBorderline High LDL: 130-159 mg/dLHigh LDL: 160-189 mg/dLVery High LDL: greater than or equal to 190 mg/dL HDL Cholesterol 46 mg/dL [facility] Comment:Desirable HDL: great er than 40 mg/dL Note: This HDL assay may give artificially low results in patients with liver disease. 10/17/2022 2:57 PM EDT 10/17/2022 4:04 PM EDT [facility] External Provider LAB BLO OD ORDERABLES Final Result Performing Organization Address [facility] Co de Phone Number [facility] [address] [place] [phone] * THINPREP PAP (12/02/2020 10:33 AM EDT) Clinical Information: None given [facility] COMMENT [facility] Comment: EXPLANATORY NOTE: ? The Pap is a screening test for cervical cancer. It is ?? not a diagnostic test and is subject to false negative ?? and false positive results. It is most reliable when a ?? satisfactory sample, regularly obtained, is submitted ?? with relevant clinical findings and history, and when ?? the Pap result is evaluated along with historic and ?? current clinical information. ?? Senior Chemist : SEE COMMENT [facility] Comment: NSS, CT(ASCP) CT screening location: [address] ??[id number] Interpretation/R esult: Negative for intraepithelial lesion or malignancy. [facility] LMP: NONE [facility] Prev. BX: NONE [facility] Prev. PAP: NONE [facility]IV[facility] SOURCE: None given [facility] Statement Of Adequacy: SEE COMMENT [facility] Comment: Satisfactory for evaluation. Endocervical/transformation zone component present. Age and/or menstrual status not provided 12/02/2020 10:3 3 AM EDT Yadi GRIGGS LAB PATHOLOGY ORDERABLES Final Result Performing Organization Address City/[facility]/ZIP Co de Phone Number [facility] [address] * HPV mRNA E6/E7 (12/02/2020 10:33 AM EDT) HPV nRNA E6/E7 Not Detected Not Detected [facility] Comment: Methodology: High Pressure Kettle Operator-Mediated Amplification This assay detects E6/E7 viral messenger RNA (mRNA) from 14 high-risk HPV types (16,18,31,33,35,39,45,51,52,56,58,59,66,68). ? The analytical performance characteristics of this assay have been determined by [employer]. The modifications have not been cleared or approved by the FDA. This assay has been validated pursuant to the CLIA regulations and is used for clinical purposes. ?? For additional information, please refer to http://education.Techca[employer].io/faq/IJU491f1 (This link if provided for information/ educational purposes only.) 12/02/2020 10:3 3 AM EDT us Yadi [facility] LAB BLOOD ORDERABLES Ursula short Result [facility] [address] from Last 3 Months or Most Recently Relevant to Health Maintenance Insurance [facility] C3 Care Teams Truck Loader And Unloader Relationship Specialty Start Date End Date Sammie Bazan MD [address] [place] [address] PCP - General Family Medicine 06/10/21
--- OUTSIDE RECORDS SUMMARY | 2024-04-26 12:35 | XMS_ITS | Encounter Summary ---
Author Organization [facility] Address [address] [place] [id number] Care Team Providers Care Hand Hardener Name Role Phone Sammie Bazan MD Primary Care Provide r Reason for Visit * Reason Onset Date Comments Med Refill 11/03/2022 Encounter Details Date Type Department Care Team (Late st Contact Info) Description 11/03/2022 Refill [facility] MEDICINE [address] [place], [place] [phone] Sammie Bazan MD [address] [place], [place] [phone] Vitamin B12 deficiency Social History Tobacco Use Types Packs/Day Years Used Date Smoking Tobacco: Never Alcohol Use Standard Drinks/Week Comments Never 0 (1 standard drink = 0.6 oz pur e alcohol) Comments Unknown Sex and Gender Information Value Date Recorded Sex Assigned at Female 01/31/2022 10:31 AM EDT Legal Sex Female 10:31 AM EDT Gender Identity Female 01/31/2022 10:31 AM EDT Sexual Orientation Straight 01/31/2022 10 :31 AM EDT COVID-19 Exposure Response Date Recorded In the last 10 days, have yo u been in contact with someone who was confirmed or suspected to have Coronavirus/COVID-19? No / Unsure 10/17/2022 9:54 AM EDT documented as of this encounter Plan of Treatment Not on file documented as of this encounter Visit Diagnoses Diagnosis Vitamin B12 deficiency Other B-complex deficiencies documented in this encounter Care Teams Hand Hardener Relationship Specialty Start Date End Date Sammie Bazan MD [address] [place], [place] [phone] PCP - General Family Medicine 06/10/21 documented as of this encounter
--- OUTSIDE RECORDS SUMMARY | 2024-04-26 12:35 | XMS_ITS | Encounter Summary ---
Author Organization [facility] Address [address] [place] [address] [address] [place] [address] Care Team Providers Care Load Mixer Name Role Phone Sammie Bazan MD Primary Care Provide r Reason for Referral * Cardiology (Routine) - Authorized Specialty Diagnoses / Procedures Referred By Shane blackman Referred To Contact Cardiology Diagnoses Chest pain, unspecified type Palpitations Procedures Holter monitor - 24 hour Mary Jane Malloy DO [address] [place] [address] Phone: tel: fax: [address] Phone: tel: fax: Referral ID Status Reason Start Date Expiration Date V isits Requested Visits Authorized [id number] Authorized 04/25/2024 04/25/2025 1 1 * Imaging (Routine) - Authorized Specialty Diagnoses / Procedures Referred By Shane blackman Referred To Contact Cardiology Diagnoses Chest pain, unspecified type Palpitations Procedures Transthoracic Echo (TTE) Complete Mary Jane Malloy DO [address] [place] [address] Phone: tel: fax: [address] Phone: tel: fax: Referral ID Status Reason Start Date Expiration Date Visits Requested Visits Authorized [id number] Authorized Perform Procedure 04/25/2024 04/25/2025 1 1 Reason for Visit * Reason Comments Chest Pain Dizziness Encounter Details Date Type Department Care Team (Late st Contact Info) Description 04/25/2024 8:40 AM EST Office Visit [facility] [address] [place] [phone] Mary Jane Malloy DO [address] [place] [address] Chest pain, unspecified type (Primary Dx); Palpitations; Acute pain of right knee Social History Tobacco Use Types Packs/Day Years Used Date Smoking Tobacco: Never Passive Smoke Exposure: Never Smokeless Tobacco: Never Alcohol Use Standard Drinks/Week Comments [...] Orientation Straight 01/31/2022 10 :31 AM EDT documented as of this encounter Last Filed Vital Signs Vital Sign Reading Time Taken Comments Blood Pressure 118/81 04/25/2024 8:45 AM EST Pulse 80 04/25/2024 8:45 AM EST Temperature 36.8 ??C (98.2 ??F) 04/25/2024 8:45 AM ES T Respiratory Rate 17 04/25/2024 8:45 AM EST Oxygen Saturation 100% 04/25/2024 8:45 AM EST Inhaled Oxygen Concentration - - Weight 124 kg (274 lb) 04/25/2024 8:45 AM EST Height - - Body Mass Index 41.66 12/01/2023 8:47 AM EDT documented in this encounter Progress Notes * Mary Jane Malloy, DO - 04/25/2024 8:40 AM EST SUBJECTIVE Nancie Humphries is a 34 y.o. female who presents for Sick Visit. She comes to [place] c/o persistent sx. She presented to [facility] ED on 04.23.24 c/o CP across her chest with palpitations, which started 2 days prior after a bad discussion with her partner. Her vitals were nml and had nml exam. She was givena dose of hydroxyzine. Her labs and EKG were nml. She was sent home with dx of CP and given hydroxyzine prn anxiety. She c/o continued CP and palpitations. She describes a constant SS pinching pain. She says the paininitially came-on about 1-hour after the discussion with her partner and [id number] since. Shesays she slept ok through the night, but she was awakened by the CP with palpitations. She says shehasn't tried the hydroxyzine since she got home from the hospital because it did not help in the ED. She denies PMHx HTN. She says she has FHx CHD, GM of [place]. She has h/o anxiety, but she does not have therapist or psychiatrist. She does not take anything for her anxiety. She tried therapy once but didn't like it. She says she drinks coffee once daily in the morning. History provided by: Patient clothes presser used: No Chest Pain Pain location: Substernal area Pain quality: not burning, no pressure, not radiating, not stabbing and no tightness Pain radiates to: Does not radiate Timing: Intermittent Chronicity: Recurrent Relieved by: Nothing Associated symptoms: palpitations Associated symptoms: no abdominal pain, no back pain, no cough, no fatigue, no fever, no heartburn,no lower extremity edema, no nausea, no near-syncope, no shortness of breath and no vomiting Risk factors: obesity Risk factors: no coronary artery disease, no diabetes mellitus, no hypertension and no smoking Review of Systems Constitutional: Negative for fatigue and fever. Eyes: Positive for visual disturbance. Respiratory: Negative for cough and shortness of breath. Cardiovascular: Positive for chest pain and palpitations. Negative for near-syncope. Gastrointestinal: Negative for abdominal pain, diarrhea, heartburn, nausea and vomiting. Musculoskeletal: Negative for back pain. Psychiatric/Behavioral: Positive for dysphoric mood. The patient is nervous/anxious. Patient Active Problem List Diagnosis Chronic migraine Chronic low back pain Obesity Depression Major depression single episode, in partial remission ([facility]) Microscopic hematuria Migraine without aura, not refractory Qualitative platelet disorder ([facility]) Chronic fatigue Polyarthralgia Numbness and tingling Neuropathy of right peroneal nerve Epigastric pain Nausea Numbness and tingling in both hands Pain of right thumb Mild intermittent asthma with acute exacerbation Moderate persistent asthma GERD (gastroesophageal reflux disease) Class 3 severe obesity due to excess calories with serious comorbidity and body mass index (BMI) of40.0 to 44.9 in adult ([facility]) No Known Allergies OBJECTIVE Visit Vitals BP 118/81 (BP Location: Right arm, Patient Position: Sitting, BP Cuff Size: Large adult) Pulse 80 Temp 98.2 ??F (36.8 ??C) (Temporal) Resp 17 Wt 274 lb (124 kg) SpO2 100% BMI 41.66 kg/m?? Smoking Status Never BSA 2.44 m?? Physical Exam Constitutional: General: She is not in acute distress. Appearance: Normal appearance. Cardiovascular: Rate and Rhythm: Regular rhythm. Heart sounds: Normal heart sounds. No murmur heard. Pulmonary: Effort: Pulmonary effort is normal. Breath sounds: Normal breath sounds. No wheezing or rhonchi. Chest: Chest wall: Tenderness present. Comments: SS TTP Musculoskeletal: Right lower leg: No edema. Left lower leg: No edema. Neurological: General: No focal deficit present. Mental Status: She is alert and oriented to person, place, and time. Cranial Nerves: No cranial nerve deficit. Motor: No weakness. Gait: Gait normal. Psychiatric: Attention and Perception: Attention normal. Mood and Affect: Mood is anxious. Speech: Speech normal. Thought Content: Thought content normal. Assessment/Plan Diagnoses and all orders for this visit: Chest pain, unspecified type Palpitations With continued intermittent sx, reproducible pain on exam, likely multifactorial -repeat CBC and TFTs -referred for ECHO and Holter monitor -treat with naprosyn BID x 5 days, then prn -trial baclofen to help with mm spasm -encouraged diclofenac gel -she declines referral to therapist -advised rtc or go to ED if sx change or worsen, she agrees with plans --Follow-up with PCP as scheduled or sooner prn-- Current Outpatient Medications: acetaminophen (Tylenol) 500 MG tablet, Take 2 tablets (1,000 mg) by mouth every 6 (six) hours if needed for moderate pain or fever for up to 25 doses., Disp: 50 tablet, Rfl: 0 albuterol (2.5 MG/3ML) 0.083% nebulizer solution, Take 3 mL (2.5 mg) by nebulization every 4 (four)hours if needed for wheezing., Disp: 75 mL, Rfl: 3 baclofen (Lioresal) 10 MG tablet, Take 1 tablet (10 mg) by mouth if needed in the morning, at noon,and at bedtime for muscle spasms., Disp: 60 tablet, Rfl: 1 budesonide-formoterol (Symbicort) 80-4.5 MCG/ACT inhaler, Inhale 2 puffs in the morning and at bedtime. Rinse mouth with water after use to reduce aftertaste and incidence of candidiasis. Do not swallow., Disp: 1 each, Rfl: 5 Diclofenac Sodium 1 % gel, Apply 2 g topically if needed in the morning, at noon, in the evening, and at bedtime (pain)., Disp: 150 g, Rfl: 1 famotidine (Pepcid) 20 MG tablet, Take 1 tablet (20 mg) by mouth 2 times daily., Disp: 60 tablet, Rfl: 11 famotidine (Pepcid) 20 MG tablet, Take 1 tablet (20 mg) by mouth 2 times daily., Disp: 60 tablet, Rfl: 11 montelukast (Singulair) 10 MG tablet, Take 1 tablet (10 mg) by mouth Once per day., Disp: 30 tablet, Rfl: 11 naproxen (Naprosyn) 500 MG tablet, Take 1 tablet (500 mg) by mouth if needed in the morning and at bedtime for mild pain., Disp: 30 tablet, Rfl: 1 phentermine 15 MG capsule, Take 1 capsule (15 mg) by mouth before breakfast., Disp: 30 capsule, Rfl: 0 Spacer/Aero-Holding Chambers device, 1 each every 6 (six) hours if needed (use if wheezing, chest thightness, dyspnea)., Disp: 1 each, Rfl: 0 topiramate (Topamax) 25 MG tablet, Take 1 tablet (25 mg) by mouth Once per day., Disp: 30 tablet, Rfl: 1 Ventolin HFA 108 (90 Base) MCG/ACT inhaler, INHALE 2 PUFFS EVERY 6 HOURS IF NEEDED FOR WHEEZING., Disp: 18 g, Rfl: 0 Scribe Attestation: Mahendra Taylor, am serving as a scribe to document services personally performed by Mary Jane Colon, based on the patient's response to questions by provider and provider's statements to me. 04/25/24 12:22 PM Physicians Attestation: Mary Jane Taylor DO, have reviewed the information by the scribe, Mahendra Nolen, for accuracy and agree with its content. documented in this encounter Plan of Treatment Scheduled Orders Name Type Priority Associated Diagnoses Orde r Schedule Transthoracic Echo (TTE) Complete Echocardiography Routine Chest pain, unspecified type Palpitations Expected: 04/25/2024 (Approximate), Expires: 04/25/2026 Holter monitor - 24 hour Cardiac Services Routine Chest pain, unspecified type Palpitations Expected: 04/25/2024 (Approximate), Expires: 04/25/2026 TSH Lab Routine Palpitations Expected: 04/25/2024 (Approximate), Expires: 04/25/2025 T4, Free Lab Routine Palpitations Expected: 04/25/2024 (Approximate), Expires: 04/25/2025 documented as of this encounter Procedures Procedure Name Priority Date/Time Associated Diagnosis Comments CBC WITH AUTO DIFFERENTIAL Routine 04/26/2024 10:51 AM EST Palpitations documented in this encounter Results * (ABNORMAL) CBC auto differential (04/26/2024 10:51 AM EST) White Blood Count 5.9 4.8 - 10.8 X10*3/uL [facility] Red Blood Count 4.47 4.20 - 5.50 X10*6/uL [facility] Hemoglobin 12.5 12.0 - 16.0 g/dl [facility] Hematocrit 39.5 37.0 - 47.0 % [facility] Mean Corpuscular Volume 88.4 80.0 - 98.0 fL [facility] Mean Corpuscular Hemoglobin 28.0 27.0 - 33.0 pg [facility] Mean Corpuscular HGB Conc 31.6 31.0 - 35.0 g/dl [facility] Red Cell Distribution Width 13.2 11.0 - 16.0 % [facility] Platelet Count 164 160 - 400 X10*3/uL [facility] Mean Platelet Volume 13.3(H) 9.4 - 12.3 fL [facility] Neutrophils Percent Auto 59.9 45 - 73 % [facility] Imm Gran Pct Auto 0.2 0.0 - 0.4 % [facility] Lymphocytes Percent Auto 28.9 20 - 40 % [facility] Monocytes Percent Auto 7.4 2 - 11 % [facility] Eosinophils Percent Auto 3.1 0 - 4 % [facility] Basophils Percent Auto 0.5 0 - 2 % [facility] NRBC Pct Auto 0.0 0.0 - 0.2 /100WBC [facility] Neutrophils Absolute Auto 3.5 2.0 - 8.3 x10*3/uL [facility] Imm Gran Abs Auto 0.01 0.00 - 0.03 X10*3/uL [facility] Lymphocytes Absolute Auto 1.7 1.2 - 4.9 X10*3/uL [facility] Monocytes Absolute Auto 0.4 0.1 - 1.2 X10*3/uL [facility] Eosinophils Absolute Auto 0.2 0.0 - 0.4 X10*3/uL [facility] Basophils Absolute Auto 0.0 0.0 - 0.2 X10*3/uL [facility] NRBC Abs Auto 0.000 0.0 - 0.012 X10*3/uL [facility] Blood Venous blood specimen / Unknown 04/26/2024 10:51 AM EST 04/26/2024 11:35 AM EST Mary Jane Malloy DO LAB BLOOD ORDERABLES Final R esult Performing Organization Address City/State/[facility] Co de Phone Number [facility] [address] [place] [address] [phone] documented in this encounter Visit Diagnoses Diagnosis Chest pain, unspecified type- Primary Palpitations Acute pain of right knee documented in this encounter Additional Health Concerns Assessment Noted Time PHQ-9 Depression Total Score: 0 09/29/19 24 2:26 PM EDT documented as of this encounter Care Teams Load Mixer Relationship Specialty Start Date End Date Sammie Bazan MD [address] [place] [phone] PCP - General Family Medicine 06/10/21 documented as of this encounter
--- OUTSIDE RECORDS SUMMARY | 2024-04-26 12:35 | XMS_ITS | Encounter Summary ---
Author Organization [employer] Address [address] [facility] [address] [place] [address] Care Team Providers Care Conveyor Worker Name Role Phone Sammie Bazan MD Primary Care Provide r Encounter Details Date Type Department Care Team (Late st Contact Info) Description 04/23/2024 Orders Only [facility] External Provider, [facility] Social History Tobacco Use Types Packs/Day Years [...] on file documented as of this encounter Procedures Procedure Name Priority Date/Time Associated Diagnosis Comments HIGH SENSITIVITY TROPONIN I Routine 04/23/2024 5:05 AM EST TSH W/REFLEX TO FT4 Routine 04/23/2024 5 :05 AM EST CBC WITH AUTO DIFFERENTIAL Routine 04/23/2024 5:05 AM EST HCG, TOTAL, QN Routine 04/23/2024 5:05 AM EST MAGNESIUM Routine 04/23/2024 5:05 AM EST HEPATIC FUNCTION PANEL Routine 04/23/2024 5:05 AM EST BASIC METABOLIC PANEL Routine 04/23/2024 5:05 AM EST XR CHEST 1 VIEW Routine 04/23/2024 4:39 AM EST documented in this encounter Results * hCG, Total, Quantitative (04/23/2024 5:05 AM EST) HCG Quantitative <2 mIU/mL [facility] Comment:Weeks post LMP Appro ximate hCG(Last Menstrual Period) Range (mIU/ml)3 - 4 weeks 9 - 1304 - 5 weeks 75 - 2,6005 - 6 weeks 850 - 20,8006 - 7 weeks 4000 - 100,2007 - 12 weeks 11,500 - 289,90607 - 16 weeks 18,300 - 137,24784 - 29 weeks (2nd trimester) 1,400 - 53,44183 - 41 weeks (3rd trimester) 940 - [...] ORDERAB LES Final Result Performing Organization Address [facility] de Phone Number [facility] [address] [place] [phone] * TSH with Reflex to Free T4 (04/23/2024 5:05 AM EST) TSH reflex Free T4 0.90 0.32 - 4.0 uIU/mL [facility] 04/23/2024 5:05 AM EST 04/23/2024 5:09 AM EST Generic External Data Provider LAB BLOOD ORDERAB LES Final Result Performing Organization Address [facility] Phone Number [facility] [address] [place] [phone] * High Sensitivity Troponin I (04/23/2024 5:05 AM EST) TROPONIN I HIGH SENSITIVITY <2.7 <3.5 - 17.0 ng/L [facility] Comment:The Fischer high sens itivity Troponin-I results should beused in conjunction with other diagnostic information suchas ECG, clinical observations and information, and patientsymptoms to aid in the diagnosis of HI. 04/23/2024 5:05 AM EST 04/23/2024 5:09 AM EST Generic External Data Provider LAB BLOOD ORDERAB LES Final Result Performing Organization Address [facility] Phone Number [facility] [address] [place] [phone] * Magnesium (04/23/2024 5:05 AM EST) Magnesium 1.9 1.6 - 2.6 mg/dL [facility] 04/23/2024 5:05 AM EST 04/23/2024 5:09 AM EST us Generic External Data Provider LAB BLOOD ORDERAB LES Final Result [facility] [address] [place] [phone] [phone] * Basic Metabolic Panel (04/23/2024 5:05 AM EST) Sodium 138 135 - 145 mmol/L [facility] Potassium 3.7 3.3 - 5.1 mmol/L [facility] Chloride 108 96 - 108 mmol/L [facility] Carbon Dioxide 22 22 - 29 mmol/L [facility] Anion Gap 12 12 - 20 [facility] Urea Nitrogen (BUN) 16 9 - 16 mg/dL [facility] Creatinine, Serum 0.77 0.5 - 1.4 mg/dL [facility] Creatinine Clr Calc Pharmacy 141.9 [facility] Comment:Provided height and weight: 172.72 cm,122.47 kg.eGFR (calculated from the MDRD study equation) and eCrCl(calculated from the Cockcroft-Gault equation) are based ondifferent parameters and may not yield comparable results.If eCrCl result is absurd, please check patient'sheight/weight. Estimated Glomerular Filt Rate >60 [facility] Comment:Chronic Kidney Disea se: Estimated GFR < 60 mL/min/[id number] Kidney Disease: Estimated GFR < 15 mL/min/1.73m2 Glucose 97 60 - 115 mg/dL [facility] Calcium 8.4 8.4 - 10.2 mg/dL [facility] 04/23/2024 5:05 AM EST 04/23/2024 5:09 AM EST Generic External Data Provider LAB BLOOD ORDERAB LES Final Result Performing Organization Address [facility] de Phone Number [facility] [address] [place] [phone] * Hepatic Function Panel (04/23/2024 5:05 AM EST) Bilirubin, Total 0.9 0.0 - 1.0 mg/dL [facility] Bilirubin, Direct 0.2 0.0 - 0.5 mg/dL [facility] Aspartate Amino Transferase 12 5 - 31 U/L [facility] Alanine Aminotransferase 8 0 - 31 U/L [facility] Total Protein 7.2 6.5 - 8.0 g/dL [facility] Albumin Level 4.0 3.5 - 5.0 g/dL [facility] Alkaline Phosphatase 49 39 - 117 U/L [facility] 04/23/2024 5:05 AM EST 04/23/2024 5:09 AM EST Generic External Data Provider LAB BLOOD ORDERAB LES Final Result Performing Organization Address [facility] Number [facility] [address] [place] [phone] * (ABNORMAL) CBC auto differential (04/23/2024 5:05 AM EST) White Blood Count 5.6 4.8 - 10.8 X10*3/uL [facility] Red Blood Count 4.32 4.20 - 5.50 X10*6/uL [facility] Hemoglobin 12.1 12.0 - 16.0 g/dl [facility] Hematocrit 37.6 37.0 - 47.0 % [facility] Mean Corpuscular Volume 87.0 80.0 - 98.0 fL [facility] Mean Corpuscular Hemoglobin 28.0 27.0 - 33.0 pg [facility] Mean Corpuscular HGB Conc 32.2 31.0 - 35.0 g/dl [facility] Red Cell Distribution Width 13.0 11.0 - 16.0 % [facility] Platelet Count 149(L) 160 - 400 X10*3/uL [facility] Mean Platelet Volume 13.1(H) 9.4 - 12.3 fL [facility] Neutrophils Percent Auto 55.6 45 - 73 % [facility] Imm Gran Pct Auto 0.2 0.0 - 0.4 % [facility] Lymphocytes Percent Auto 31.9 20 - 40 % [facility] Monocytes Percent Auto 7.6 2 - 11 % [facility] Eosinophils Percent Auto 4.3(H) 0 - 4 % [facility] Basophils Percent Auto 0.4 0 - 2 % [facility] NRBC Pct Auto 0.0 0.0 - 0.2 /100WBC [facility] Neutrophils Absolute Auto 3.1 2.0 - 8.3 x10*3/uL [facility] Imm Gran Abs Auto 0.01 0.00 - 0.03 X10*3/uL [facility] Lymphocytes Absolute Auto 1.8 1.2 - 4.9 X10*3/uL [facility] Monocytes Absolute Auto 0.4 0.1 - 1.2 X10*3/uL [facility] Eosinophils Absolute Auto 0.2 0.0 - 0.4 X10*3/uL [facility] Basophils Absolute Auto 0.0 0.0 - 0.2 X10*3/uL [facility] NRBC Abs Auto 0.000 0.0 - 0.012 X10*3/uL [facility] 04/23/2024 5:05 AM EST 04/23/2024 5:09 AM EST us Generic External Data Provider LAB BLOOD ORDERAB LES Final Result [facility] [address] [place] [phone] * XR Chest 1 View (04/23/2024 4:39 AM EST) Anatomical Region Laterality Modality Chest Radiographic Patricia ging 04/23/2024 4:39 AM EST Narrative 04/23/2024 4:41 AM EST ? [facility] ?[address] ?[place] [address] ?XRay Report ? Signed ? Patient: Nancie Gomes ?M ?? R#: [id number] ? : 1990 ?Acct:[id number] ? Age/Sex: 34 / F ?ADM Date: 04/23/24 ? Loc: HO.ED ? Attending Dr: ? Ordering Physician: Lesly Ramirez DO ?? Date of Service: 04/23/24 ?? Procedure(s): XR chest 1V ?? Accession Number(s): [id number] ? cc: Lesly Ramirez DO; [facility] ? CLINICAL HISTORY: chest pain ? [...] DD/ 0439 ? TD/TT: 04/23/24 0439 ? Data Communications Engineer: ? Procedure Note Keke Cintron - 04/23/[address] [address] XRay Report Signed Patient: Jordan Gomes R#: [id number] : 1990Acct:[id number] Age/Sex: 34 / FADM Date: 04/23/24 Loc: HO.ED Attending Dr: Ordering Physician: Lesly Ramirez DO Date of Service: 04/23/24 Procedure(s): XR chest 1V Accession Number(s): [id number] cc: Lesly Ramirez DO; [facility] CLINICAL HISTORY: chest pain 1 view [...] signed by Mazin Fields MD in OV> 04/23/241 DD/ 8 TD/TT: 04/23/24438 Data Communications Engineer: [facility] External Provider IMG XR PROCEDURES Final Result documented in this encounter Visit Diagnoses Not on filedocumented in this encounter Additional Health Concerns Assessment Noted Time PHQ-9 Depression Total Score: 0 09/29/19 24 2:26 PM EDT documented as of this encounter Care Teams Conveyor Worker Relationship Specialty Start Date End Date Sammie Bazan MD [address] [place] [phone] PCP - General Family Medicine 06/10/21 documented as of this encounter
[2024-04-26 12:49] LABS: Free T4 (Free Thyroxine) 0.96 ng/dL (0.71-1.85); Thyroid Stimulating Hormone 0.69 uIU/mL (0.32-4.0)
== END 2024-04-26 10:51 | disposition home or self-care (01) ==
LOC: HO.HHCL 10:50
PROVIDERS: Visit Provider Family Medicine
DX: R00.2 Palpitations (principal)
CPT/HCPCS: 36415; 84439; 84443; 85025